=== PATIENT | female | born 1940 | race Caucasian/White ===

== ENCOUNTER 2016-09-13 11:27 | Inpatient (IN) | payer MEDICARE, OTHER ==
[~2016-09-13] VITALS: Ht 162.6 cm; Wt 86.1 kg
[~2016-09-13 11:27] MED LIST: ACET-784 PO; ASPI81 PO; DILT120C3 PO; FERR-89 PO; FURO20 PO; GABA-529 PO; LACHLOT TP; METF500T4 PO; MULT-248 PO; PROM25 PO; RIVA10 PO; SERT100T12 PO
[2016-09-13] MEDS ORDERED: HYDR20TA3 PO (11:59)
[2016-09-13] MEDS ORDERED: ZOLP5 PO (12:04)
[2016-09-13] MEDS ORDERED: ONDA4 PO (12:04)
[2016-09-13] MEDS ORDERED: HYDR-3965 PO (12:04)
[2016-09-13] MEDS ORDERED: LORA0.5T2 PO (12:04)
[2016-09-13] MEDS ORDERED: DIGO125T PO (12:04)
[2016-09-13] MEDS ORDERED: HYD25 PO (12:04)
[2016-09-13] MEDS ORDERED: SODIUM CHLORIDE 0.9% 1,000 ML IV ONE (12:15)
[2016-09-13] MEDS ORDERED: ACETAMINOPHEN 325 MG TABLET PO ONE (12:15)
[2016-09-13 12:36] LABS: BASOPHILS # (AUTO) 0.03 K/uL (0.00-0.20); BASOPHILS % (AUTO) 0.3 % (0.0-2.0); EOSINOPHILS # (AUTO) 0.14 K/uL (0.00-0.70); EOSINOPHILS % (AUTO) 1.68 % (1.0-6.0); HEMATOCRIT 31.7 % (36-46); HEMOGLOBIN 10.1 g/dL (12.0-16.0); LYMPHOCYTES # (AUTO) 0.8 K/uL (1.0-4.8); MEAN CORPUSCULAR HEMOGLOBIN 28.6 pg (26.0-34.0); MEAN CORPUSCULAR HGB CONC 31.9 G/dL (31.0-37.0); MEAN CORPUSCULAR VOLUME 90 fL (80-100); MONOCYTES # (AUTO) 0.7 K/uL (0.1-1.0); MONOCYTES % (AUTO) 8.5 % (2.0-9.0); NEUTROPHILS # (AUTO) 6.5 K/uL (1.8-7.7); NEUTROPHILS % (AUTO) 79.5 % (40.0-70.0); PLATELET COUNT (AUTO) 263 K/uL (150-450); RED BLOOD CELL COUNT(AUTO) 3.53 MIL/uL (4.00-5.20); WHITE BLOOD COUNT (AUTO) 8.2 K/uL (4.5-11.0)
[2016-09-13 12:55] LABS: LACTIC ACID 1.1 mmol/L (0.4-2.0)
[2016-09-13 13:00] LABS: ANION GAP 13 mmol/L (8-16); CALCIUM, TOTAL 8.3 mg/dL (8.8-10.5); CARBON DIOXIDE 21 mmol/L (22-29); CHLORIDE 107 mmol/L (98-107); CREATININE 1.32 mg/dL (0.60-1.30); GLOMERULAR FILTR. RATE CALC 39 mL/min (>60); POTASSIUM 3.9 mmol/L (3.5-5.1); SODIUM SERUM 141 mmol/L (136-145); UREA NITROGEN, BLOOD 27 mg/dL (7-18)
[2016-09-13 13:05] LABS: ALANINE AMINOTRANSFERASE 13 U/L (12-78); ALBUMIN 2.9 g/dL (3.4-5.0); ASPARTATE AMINOTRANSFERASE 17 U/L (15-37); BILIRUBIN,TOTAL 0.4 mg/dL (0.1-1.0); CREATINE KINASE, TOTAL 23 U/L (26-192); TOTAL PROTEIN, SERUM 7.1 g/dL (6.4-8.2)
[2016-09-13 13:45] LABS: PROCALCITONIN (PCT) < 0.05 ng/mL (<0.50)
[2016-09-13 15:32] LABS: APPEARANCE,URINE CLOUDY (CLEAR); GLUCOSE, URINE (UA) NEGATIVE (NEGATIVE); KETONES,URINE NEGATIVE (NEGATIVE); LEUKOCYTE ESTERASE ,URINE NEGATIVE (NEGATIVE); OCCULT BLOOD,URINE TRACE (NEGATIVE); PH,URINE 5.5 (5.0-8.0); PROTEIN,URINE NEGATIVE (NEGATIVE)
[2016-09-13 15:34] LABS: SQUAMOUS EPITHELIAL CELL,UR Few /LPF (None Seen)
[2016-09-13] MEDS ORDERED: ACETAMINOPHEN 325 MG TABLET PO PRN ×2 (16:30→21:45)
[2016-09-13] MEDS ORDERED: ONDANSETRON HCL 4 MG/2 ML VIAL IVP PRN (16:30)
[2016-09-13] MEDS ORDERED: CefTRIAXone 1 GM/DEXTROSE 50 ML IV ONE (16:30)
[2016-09-13 18:34] VITALS: BP 120/71
[2016-09-13 20:39] VITALS: BP 124/75
[2016-09-13] MEDS ORDERED: LORazepam 0.5 MG TABLET PO PRN (21:15)
[2016-09-13] MEDS ORDERED: PROMETHAZINE HCL 25 MG TABLET PO PRN (21:15)
[2016-09-13] MEDS ORDERED: MAGNESIUM HYDROXIDE SUSPENSION 30 ML UDCUP PO PRN (21:15)
[2016-09-13] MEDS ORDERED: BISACODYL 10 MG RECTAL RECTAL SUPPOSITORY PR PRN (21:15)
[2016-09-13] MEDS ORDERED: ONDANSETRON HCL 4 MG TABLET PO PRN (21:15)
[2016-09-13] MEDS ORDERED: ZOLPIDEM TARTRATE 5 MG TABLET PO PRN (21:15)
[2016-09-13] MEDS ORDERED: ALBUTEROL SULFATE 2.5 MG/0.5 ML NEB SOLUTION NEB PRN (21:15)
[2016-09-13] MEDS ORDERED: IPRATROPIUM BROMIDE 0.5 MG/2.5 ML NEB SOLUTION NEB PRN (21:15)
[2016-09-13] MEDS ORDERED: DEXTROSE 50%-WATER 25 GM/50 ML SYRINGE IVP PRN (21:30)
[2016-09-13] MEDS: HEPARIN SODIUM,PORCINE 5,000 UNITS/ML VIAL SQ SCH (21:39)
[2016-09-13] MEDS: INSULIN ASPART 100 UNITS/ML SQ PRN (21:42)
[2016-09-14] MEDS: HydrOXYzine HCL 25 MG TABLET PO PRN ×3 (01:19→18:54)
[2016-09-14 06:02] VITALS: BP 114/62
[2016-09-14 07:08] LABS: BASOPHILS % (AUTO) 0.2 % (0.0-2.0); EOSINOPHILS % (AUTO) 3.1 % (1.0-6.0); HEMATOCRIT 27.3 % (36-46); HEMOGLOBIN 8.5 g/dL (12.0-16.0); LYMPHOCYTES # (AUTO) 0.8 K/uL (1.0-4.8); LYMPHOCYTES % (AUTO) 17.9 % (22.0-44.0); MEAN CORPUSCULAR HEMOGLOBIN 27.9 pg (26.0-34.0); MEAN CORPUSCULAR HGB CONC 30.9 G/dL (31.0-37.0); MEAN CORPUSCULAR VOLUME 90 fL (80-100); MONOCYTES # (AUTO) 0.4 K/uL (0.1-1.0); MONOCYTES % (AUTO) 9.3 % (2.0-9.0); NEUTROPHILS # (AUTO) 3.1 K/uL (1.8-7.7); NEUTROPHILS % (AUTO) 69.5 % (40.0-70.0); PLATELET COUNT (AUTO) 216 K/uL (150-450); RED BLOOD CELL COUNT(AUTO) 3.03 MIL/uL (4.00-5.20); RED CELL DISTRIBUTION WIDTH 15.7 % (11.5-14.5); WHITE BLOOD COUNT (AUTO) 4.5 K/uL (4.5-11.0)
[2016-09-14 07:15] LABS: HEMOGLOBIN A1C 5.5 % (4.5-6.2)
[2016-09-14 07:25] LABS: AMMONIA 24 umol/L (11-32)
[2016-09-14 07:30] LABS: TROPONIN I < 0.02 ng/mL (0.00-0.05)
[2016-09-14 07:33] LABS: ANION GAP 8 mmol/L (8-16); CALCIUM, TOTAL 7.7 mg/dL (8.8-10.5); CARBON DIOXIDE 21 mmol/L (22-29); CHLORIDE 111 mmol/L (98-107); CHOL/HDL RATIO 2.3 (3.9-5.7); CREATINE KINASE, TOTAL 15 U/L (26-192); CREATININE 1.01 mg/dL (0.60-1.30); GLOMERULAR FILTR. RATE CALC 53 mL/min (>60); POTASSIUM 3.5 mmol/L (3.5-5.1); SODIUM SERUM 140 mmol/L (136-145); THYROID STIMULATING HORMONE 1.05 uIU/mL (0.36-3.74); UREA NITROGEN, BLOOD 21 mg/dL (7-18)
[2016-09-14 07:46] LABS: DIGOXIN < 0.20 ng/mL (0.90-2.00)
[2016-09-14] MEDS: PANTOPRAZOLE SODIUM 40 MG DR TABLET PO SCH (08:52)
[2016-09-14] MEDS: MULTIVITAMINS WITH MINERALS, THERAPEUTIC TABLET PO SCH (08:52)
[2016-09-14] MEDS: ASPIRIN 81 MG CHEWABLE TABLET PO SCH (08:52)
[2016-09-14] MEDS: SERTRALINE HCL 100 MG TABLET PO SCH (08:52)
[2016-09-14] MEDS: GABAPENTIN 100 MG CAPSULE PO SCH ×3 (08:53→21:36)
[2016-09-14] MEDS: HEPARIN SODIUM,PORCINE 5,000 UNITS/ML VIAL SQ SCH ×2 (08:53→21:38)
[2016-09-14] MEDS: DIGOXIN 125 MCG TABLET PO SCH (08:53)
[2016-09-14] MEDS: RIVAROXABAN 15 MG TABLET PO SCH (08:53)
[2016-09-14] MEDS: HYDROCORTISONE 10 MG TABLET PO SCH ×2 (08:53→21:38)
[2016-09-14] MEDS: MetFORMIN HCL 500 MG TABLET PO SCH ×2 (08:53→17:20)
[2016-09-14] MEDS: FERROUS SULFATE 325 MG EC TABLET PO SCH (08:53)
[2016-09-14] MEDS: DILTIAZEM HCL CD 120 MG ER CAPSULE PO SCH ×2 (08:59→21:36)
[2016-09-14 09:09] VITALS: BP 98/56
[2016-09-14 09:30] LABS: VITAMIN B12 LEVEL 277 pg/mL (211-911)
[2016-09-14] MEDS: FUROSEMIDE 20 MG/2 ML VIAL IVP SCH (09:56)
[2016-09-14 11:35] VITALS: BP 112/58
[2016-09-14] MEDS ORDERED: RIVA15T PO (11:52)
[2016-09-14] MEDS: HYDROCODONE/ACETAMINOPHEN 5-325 MG TABLET PO PRN ×2 (13:42→21:38)
[2016-09-14 16:10] VITALS: BP 120/62
[2016-09-14] MEDS ORDERED: SODIUM CHLORIDE 0.9% 500 ML IV ONE (16:26)
[2016-09-14] MEDS: CefTRIAXone 1 GM/DEXTROSE 50 ML IV SCH (16:32)
[2016-09-14] MEDS: PYRIDOSTIGMINE BROMIDE 60 MG TABLET PO SCH ×2 (17:20→21:36)
[2016-09-14] MEDS: INSULIN ASPART 100 UNITS/ML SQ PRN (17:23)
[2016-09-14 19:44] VITALS: BP 124/68
[2016-09-14] MEDS: METOPROLOL TARTRATE 25 MG TABLET PO SCH (21:37)
[2016-09-15 00:10] VITALS: BP 113/71
[2016-09-15] MEDS: HydrOXYzine HCL 25 MG TABLET PO PRN (03:09)
[2016-09-15 04:25] VITALS: BP 105/62
[2016-09-15] MEDS: INSULIN ASPART 100 UNITS/ML SQ PRN (06:12)
[2016-09-15] MEDS: HYDROCODONE/ACETAMINOPHEN 5-325 MG TABLET PO PRN ×2 (06:23→14:01)
[2016-09-15 06:55] LABS: BASOPHILS % (AUTO) 0.1 % (0.0-2.0); EOSINOPHILS % (AUTO) 0.1 % (1.0-6.0); HEMATOCRIT 29.1 % (36-46); LYMPHOCYTES # (AUTO) 0.7 K/uL (1.0-4.8); LYMPHOCYTES % (AUTO) 10.5 % (22.0-44.0); MEAN CORPUSCULAR VOLUME 90 fL (80-100); MONOCYTES # (AUTO) 0.3 K/uL (0.1-1.0); NEUTROPHILS # (AUTO) 5.3 K/uL (1.8-7.7); NEUTROPHILS % (AUTO) 84.3 % (40.0-70.0); PLATELET COUNT (AUTO) 236 K/uL (150-450); RED BLOOD CELL COUNT(AUTO) 3.22 MIL/uL (4.00-5.20); WHITE BLOOD COUNT (AUTO) 6.3 K/uL (4.5-11.0)
[2016-09-15 07:07] LABS: CALCIUM, TOTAL 8.1 mg/dL (8.8-10.5); CREATININE 1.19 mg/dL (0.60-1.30); MAGNESIUM 2.1 mg/dL (1.80-2.40); PHOSPHORUS 3.5 mg/dL (2.5-4.9); POTASSIUM 4.8 mmol/L (3.5-5.1)
[2016-09-15 07:50] VITALS: BP 98/59
[2016-09-15] MEDS: PANTOPRAZOLE SODIUM 40 MG DR TABLET PO SCH (08:26)
[2016-09-15] MEDS: HEPARIN SODIUM,PORCINE 5,000 UNITS/ML VIAL SQ SCH ×2 (08:26→21:01)
[2016-09-15] MEDS: ASPIRIN 81 MG CHEWABLE TABLET PO SCH (08:26)
[2016-09-15] MEDS: FERROUS SULFATE 325 MG EC TABLET PO SCH (08:26)
[2016-09-15] MEDS: MULTIVITAMINS WITH MINERALS, THERAPEUTIC TABLET PO SCH (08:27)
[2016-09-15] MEDS: HYDROCORTISONE 10 MG TABLET PO SCH ×2 (08:27→21:00)
[2016-09-15] MEDS: SERTRALINE HCL 100 MG TABLET PO SCH (08:27)
[2016-09-15] MEDS: GABAPENTIN 100 MG CAPSULE PO SCH ×3 (08:27→21:00)
[2016-09-15] MEDS: RIVAROXABAN 15 MG TABLET PO SCH (08:27)
[2016-09-15] MEDS: PYRIDOSTIGMINE BROMIDE 60 MG TABLET PO SCH ×3 (08:27→21:00)
[2016-09-15] MEDS: MetFORMIN HCL 500 MG TABLET PO SCH ×2 (08:28→17:34)
[2016-09-15] MEDS: DILTIAZEM HCL CD 120 MG ER CAPSULE PO SCH ×2 (08:28→20:30)
[2016-09-15] MEDS: METOPROLOL TARTRATE 25 MG TABLET PO SCH ×2 (08:28→20:30)
[2016-09-15] MEDS: DIGOXIN 125 MCG TABLET PO SCH (08:28)
[2016-09-15] MEDS: FUROSEMIDE 20 MG/2 ML VIAL IVP SCH (09:00)
[2016-09-15 11:21] VITALS: BP 112/63
[2016-09-15] MEDS: CefTRIAXone 1 GM/DEXTROSE 50 ML IV SCH (16:19)
[2016-09-15 18:44] LABS: ADD UA MICROSCOPIC YES; APPEARANCE,URINE CLOUDY (CLEAR); GLUCOSE, URINE (UA) NEGATIVE (NEGATIVE); KETONES,URINE NEGATIVE (NEGATIVE); LEUKOCYTE ESTERASE ,URINE TRACE (NEGATIVE); OCCULT BLOOD,URINE LARGE (NEGATIVE); PROTEIN,URINE POS 1+ (NEGATIVE)
[2016-09-15 18:46] LABS: RBC,URINE 26-50 /HPF (0-2); SQUAMOUS EPITHELIAL CELL,UR Moderate /LPF (None Seen)
[2016-09-15 19:38] VITALS: BP 100/54
[2016-09-15 19:47] LABS: GLUCOSE,POINT OF CARE 119 MG/DL (70-110)
[2016-09-15 19:52] LABS: GLUCOSE COMMENT 1 Received Meds; GLUCOSE,POINT OF CARE 154 MG/DL (70-110)
[2016-09-15 23:48] VITALS: BP 110/55
[2016-09-16 01:07] LABS: GLUCOSE,POINT OF CARE 150 MG/DL (70-110)
[2016-09-16 01:16] LABS: GLUCOSE,POINT OF CARE 129 MG/DL (70-110)
[2016-09-16 04:14] VITALS: BP 102/55
[2016-09-16 05:59] LABS: BASOPHILS % (AUTO) 0.1 % (0.0-2.0); EOSINOPHILS % (AUTO) 0.4 % (1.0-6.0); HEMOGLOBIN 8.7 g/dL (12.0-16.0); LYMPHOCYTES # (AUTO) 0.7 K/uL (1.0-4.8); LYMPHOCYTES % (AUTO) 10.8 % (22.0-44.0); MEAN CORPUSCULAR HGB CONC 31.1 G/dL (31.0-37.0); MEAN CORPUSCULAR VOLUME 90 fL (80-100); MONOCYTES # (AUTO) 0.3 K/uL (0.1-1.0); NEUTROPHILS # (AUTO) 5.4 K/uL (1.8-7.7); NEUTROPHILS % (AUTO) 83.7 % (40.0-70.0); PLATELET COUNT (AUTO) 250 K/uL (150-450); RED BLOOD CELL COUNT(AUTO) 3.11 MIL/uL (4.00-5.20); RED CELL DISTRIBUTION WIDTH 15.9 % (11.5-14.5); WHITE BLOOD COUNT (AUTO) 6.5 K/uL (4.5-11.0)
[2016-09-16 06:04] LABS: CREATININE 1.26 mg/dL (0.60-1.30); POTASSIUM 4.4 mmol/L (3.5-5.1)
[2016-09-16 07:14] VITALS: BP 103/73
[2016-09-16] MEDS: MetFORMIN HCL 500 MG TABLET PO SCH ×2 (08:00→17:17)
[2016-09-16] MEDS: METOPROLOL TARTRATE 25 MG TABLET PO SCH ×2 (09:00→20:14)
[2016-09-16] MEDS: HYDROCORTISONE 10 MG TABLET PO SCH ×2 (09:00→20:13)
[2016-09-16] MEDS: GABAPENTIN 100 MG CAPSULE PO SCH ×3 (09:00→20:13)
[2016-09-16 09:59] LABS: INR 1.1 (0.9-1.1); PROTHROMBIN TIME 11.2 SEC (9.4-11.6)
[2016-09-16] MEDS ORDERED: SODIUM CHLORIDE 0.9% 1,000 ML IV ONE ×2 (10:49→11:00)
[2016-09-16 11:27] LABS: GLUCOSE,POINT OF CARE 127 MG/DL (70-110)
[2016-09-16 11:37] LABS: GLUCOSE,POINT OF CARE 89 MG/DL (70-110)
[2016-09-16] MEDS ORDERED: ONDANSETRON HCL 4 MG/2 ML VIAL ONE (12:34)
[2016-09-16] MEDS ORDERED: ONDANSETRON HCL 4 MG/2 ML VIAL IVP PRN (12:45)
[2016-09-16 13:42] LABS: GLUCOSE COMMENT 1 Received Meds; GLUCOSE,POINT OF CARE 149 MG/DL (70-110)
[2016-09-16 13:47] LABS: GLUCOSE,POINT OF CARE 84 MG/DL (70-110)
[2016-09-16 13:48] LABS: GLUCOSE COMMENT 1 Received Meds; GLUCOSE,POINT OF CARE 143 MG/DL (70-110)
[2016-09-16 13:52] LABS: GLUCOSE,POINT OF CARE 114 MG/DL (70-110)
[2016-09-16 14:20] VITALS: BP 108/76
[2016-09-16 15:20] VITALS: BP 117/73
[2016-09-16] MEDS: CefTRIAXone 1 GM/DEXTROSE 50 ML IV SCH (15:32)
[2016-09-16] MEDS ORDERED: SODIUM CHLORIDE 0.9% 100 ML ONE (15:45)
[2016-09-16] MEDS ORDERED: IOVERSOL 350 MG/ML 100 ML VIAL ONE (15:45)
[2016-09-16] MEDS: ASPIRIN 81 MG CHEWABLE TABLET PO SCH (16:24)
[2016-09-16] MEDS: SERTRALINE HCL 100 MG TABLET PO SCH (16:24)
[2016-09-16] MEDS: SUCRALFATE 1 GM/10 ML SUSPENSION UDCUP PO SCH (16:24)
[2016-09-16] MEDS: FERROUS SULFATE 325 MG EC TABLET PO SCH (16:24)
[2016-09-16] MEDS: RIVAROXABAN 15 MG TABLET PO SCH (16:24)
[2016-09-16] MEDS: FUROSEMIDE 20 MG TABLET PO SCH (16:24)
[2016-09-16] MEDS: PYRIDOSTIGMINE BROMIDE 60 MG TABLET PO SCH (16:24)
[2016-09-16] MEDS: MULTIVITAMINS WITH MINERALS, THERAPEUTIC TABLET PO SCH (16:24)
[2016-09-16] MEDS: DIGOXIN 125 MCG TABLET PO SCH (16:24)
[2016-09-16 19:21] VITALS: BP 108/64
[2016-09-16] MEDS: PANTOPRAZOLE SODIUM 40 MG DR TABLET PO SCH (20:13)
[2016-09-16] MEDS: HydrOXYzine HCL 25 MG TABLET PO PRN (20:13)
[2016-09-16] MEDS: HYDROCODONE/ACETAMINOPHEN 5-325 MG TABLET PO PRN (22:50)
[2016-09-16 22:57] LABS: GLUCOSE COMMENT 1 Received Meds; GLUCOSE,POINT OF CARE 154 MG/DL (70-110)
[2016-09-16 23:02] LABS: GLUCOSE,POINT OF CARE 128 MG/DL (70-110)
[2016-09-16 23:33] VITALS: BP 109/66
[2016-09-17 05:17] VITALS: BP 100/59
[2016-09-17 06:27] LABS: GLUCOSE,POINT OF CARE 105 MG/DL (70-110)
[2016-09-17 07:25] VITALS: BP 105/57
[2016-09-17] MEDS: SUCRALFATE 1 GM/10 ML SUSPENSION UDCUP PO SCH ×3 (07:42→17:30)
[2016-09-17] MEDS: PANTOPRAZOLE SODIUM 40 MG DR TABLET PO SCH (07:50)
[2016-09-17] MEDS: FERROUS SULFATE 325 MG EC TABLET PO SCH (07:50)
[2016-09-17] MEDS: ASPIRIN 81 MG CHEWABLE TABLET PO SCH (07:51)
[2016-09-17] MEDS: METOPROLOL TARTRATE 25 MG TABLET PO SCH (07:51)
[2016-09-17] MEDS: SERTRALINE HCL 100 MG TABLET PO SCH (07:52)
[2016-09-17] MEDS: GABAPENTIN 100 MG CAPSULE PO SCH ×2 (07:52→15:30)
[2016-09-17] MEDS: HYDROCORTISONE 10 MG TABLET PO SCH (07:52)
[2016-09-17] MEDS: RIVAROXABAN 15 MG TABLET PO SCH (07:53)
[2016-09-17] MEDS: MULTIVITAMINS WITH MINERALS, THERAPEUTIC TABLET PO SCH (07:53)
[2016-09-17] MEDS: FUROSEMIDE 20 MG TABLET PO SCH (07:56)
[2016-09-17] MEDS ORDERED: DILTIAZEM HCL 60 MG SR CAPSULE PO SCH (09:00)
[2016-09-17 11:37] VITALS: BP 123/66
[2016-09-17 12:07] LABS: GLUCOSE,POINT OF CARE 129 MG/DL (70-110)
[2016-09-17 12:07] LABS: GLUCOSE COMMENT 1 Received Meds; GLUCOSE,POINT OF CARE 142 MG/DL (70-110)
[2016-09-17] MEDS: INSULIN ASPART 100 UNITS/ML SQ PRN ×2 (12:17→17:24)
[2016-09-17] MEDS ORDERED: DILT30TA38 PO (14:05)
[2016-09-17] MEDS: CefTRIAXone 1 GM/DEXTROSE 50 ML IV SCH (15:30)
[2016-09-17 15:37] VITALS: BP 113/60
[2016-09-17 17:07] LABS: GLUCOSE,POINT OF CARE 136 MG/DL (70-110)
[2016-09-18] MEDS ORDERED: MetFORMIN HCL 500 MG TABLET PO SCH (18:00)
== END 2016-09-17 17:27 | disposition home or self-care (01) | DRG 291 ==
LOC: EMS 11:30 → 5S 17:13
PROVIDERS: ADMIT Internal Medicine Geriatric Medicine; ATTEND Internal Medicine Geriatric Medicine
PROC: 0DJ08ZZ Inspection of Upper Intestinal Tract, Via Natural or Artificial Opening Endoscopic (ICD-10-PCS; principal; 2016-09-16 12:00)
DX: I13.0 Hypertensive heart and chronic kidney disease with heart failure and stage 1 through stage 4 chronic kidney disease, or unspecified chronic kidney disease (principal); I50.33 Acute on chronic diastolic (congestive) heart failure; E43 Unspecified severe protein-calorie malnutrition; N39.0 Urinary tract infection, site not specified; L97.909 Non-pressure chronic ulcer of unspecified part of unspecified lower leg with unspecified severity; F33.3 Major depressive disorder, recurrent, severe with psychotic symptoms; N17.9 Acute kidney failure, unspecified; I83.009 Varicose veins of unspecified lower extremity with ulcer of unspecified site; E11.622 Type 2 diabetes mellitus with other skin ulcer; G70.00 Myasthenia gravis without (acute) exacerbation; R62.7 Adult failure to thrive; E66.9 Obesity, unspecified; D64.9 Anemia, unspecified; Z90.710 Acquired absence of both cervix and uterus; E11.22 Type 2 diabetes mellitus with diabetic chronic kidney disease; F03.90 Unspecified dementia, unspecified severity, without behavioral disturbance, psychotic disturbance, mood disturbance, and anxiety; G89.4 Chronic pain syndrome; F22 Delusional disorders; K21.9 Gastro-esophageal reflux disease without esophagitis; K22.4 Dyskinesia of esophagus; I50.9 Heart failure, unspecified; I48.0 Paroxysmal atrial fibrillation; F43.21 Adjustment disorder with depressed mood; B96.20 Unspecified Escherichia coli [E. coli] as the cause of diseases classified elsewhere; K25.9 Gastric ulcer, unspecified as acute or chronic, without hemorrhage or perforation; I87.8 Other specified disorders of veins; I87.2 Venous insufficiency (chronic) (peripheral); Z68.32 Body mass index [BMI] 32.0-32.9, adult
CPT/HCPCS: 51702; 70450; 74177; 76700; 82306; 82607; 82746; 82962; 83036; 83605; 83735; 84100; 84145; 84439; 84443; 87040; 87081; 87086; 93005; 93306; 93925; 93970; 96361; 96365; 97163; 97530; 99285; J0696; J1644; J1940; J2405; J7030; J7040; J7050; Q0162

== ENCOUNTER → 2016-09-24 | Outpatient (CLI) | payer MEDICARE, OTHER ==
[~2016-09-24] MED LIST changes: -ASPI81 PO; +DIGO125T PO; -DILT120C3 PO; +DILT30TA38 PO; +HYD25 PO; +HYDR-3965 PO; +HYDR20TA3 PO; +IOVERSOL 350 MG/ML 100 ML VIAL ONE; +LORA0.5T2 PO; -METF500T4 PO; +ONDA4 PO; -RIVA10 PO; +SODIUM CHLORIDE 0.9% 100 ML ONE; +ZOLP5 PO
== END | disposition home or self-care (01) ==
LOC: RADMN 09:02
PROVIDERS: ATTEND Legal Medicine
DX: N27.1 Small kidney, bilateral (principal); I51.7 Cardiomegaly; I70.0 Atherosclerosis of aorta; J98.4 Other disorders of lung; Z98.890 Other specified postprocedural states
CPT/HCPCS: 74177; J7050; Q9967

== ENCOUNTER 2017-01-14 03:10 | Inpatient (IN) | payer MEDICARE, OTHER ==
[~2017-01-14] VITALS: Ht 160 cm; Wt 88.1 kg
[~2017-01-14 03:10] MED LIST changes: -HYDR-3965 PO; +HYDR-4061 PO; -IOVERSOL 350 MG/ML 100 ML VIAL ONE; -SODIUM CHLORIDE 0.9% 100 ML ONE
[2017-01-14] MEDS ORDERED: SODIUM CHLORIDE 0.9% 1,000 ML IV ONE (03:30)
[2017-01-14] MEDS ORDERED: MICO71PO TP (03:33)
[2017-01-14] MEDS ORDERED: PANT40TA25 PO (03:33)
[2017-01-14] MEDS ORDERED: DSS100 PO (03:33)
[2017-01-14] MEDS ORDERED: CARV20CR PO (03:33)
[2017-01-14] MEDS ORDERED: RIVA20TA PO (03:33)
[2017-01-14] MEDS ORDERED: FURO40 PO (03:33)
[2017-01-14] MEDS ORDERED: METF500T4 PO (03:33)
[2017-01-14] MEDS ORDERED: DILT60 PO (03:33)
[2017-01-14] MEDS ORDERED: ARIP2 PO (03:33)
[2017-01-14 03:59] LABS: BASOPHILS # (AUTO) 0.02 K/uL (0.00-0.20); BASOPHILS % (AUTO) 0.3 % (0.0-2.0); EOSINOPHILS # (AUTO) 0.15 K/uL (0.00-0.70); EOSINOPHILS % (AUTO) 1.87 % (1.0-6.0); HEMATOCRIT 32.8 % (36-46); HEMOGLOBIN 10.6 g/dL (12.0-16.0); MEAN CORPUSCULAR HGB CONC 32.3 G/dL (31.0-37.0); MEAN CORPUSCULAR VOLUME 87 fL (80-100); MONOCYTES # (AUTO) 0.5 K/uL (0.1-1.0); NEUTROPHILS # (AUTO) 6.2 K/uL (1.8-7.7); NEUTROPHILS % (AUTO) 78.8 % (40.0-70.0); PLATELET COUNT (AUTO) 219 K/uL (150-450); RED BLOOD CELL COUNT(AUTO) 3.79 MIL/uL (4.00-5.20); RED CELL DISTRIBUTION WIDTH 17.6 % (11.5-14.5); WHITE BLOOD COUNT (AUTO) 7.8 K/uL (4.5-11.0)
[2017-01-14 04:08] LABS: ANION GAP 19 mmol/L (8-16); CALCIUM, TOTAL 8.6 mg/dL (8.8-10.5); CARBON DIOXIDE 18 mmol/L (22-29); CHLORIDE 105 mmol/L (98-107); CREATININE 2.21 mg/dL (0.60-1.30); GLOMERULAR FILTR. RATE CALC 22 mL/min (>60); POTASSIUM 4.5 mmol/L (3.5-5.1); SODIUM SERUM 142 mmol/L (136-145); UREA NITROGEN, BLOOD 33 mg/dL (7-18)
[2017-01-14 04:11] LABS: INR 1.1 (0.9-1.1); PROTHROMBIN TIME 11.4 SEC (9.4-11.6)
[2017-01-14 04:14] LABS: ALANINE AMINOTRANSFERASE 12 U/L (12-78); ALBUMIN 3.2 g/dL (3.4-5.0); ASPARTATE AMINOTRANSFERASE 11 U/L (15-37); B-TYPE NATRIURETIC PEPTIDE 350 pg/mL (0-100); BILIRUBIN,TOTAL 0.4 mg/dL (0.1-1.0); CREATINE KINASE, TOTAL 26 U/L (26-192)
[2017-01-14] MEDS ORDERED: ATROPINE SULFATE 0.1 MG/ML 10 ML SYRINGE IVP ONE ×2 (04:15)
[2017-01-14] MEDS ORDERED: FentaNYL CITRATE-PF 100 MCG/2 ML VIAL IVP ONE (04:15)
[2017-01-14 04:21] LABS: RBC MORPHOLOGY COMMENT ABNORMAL RBC MORPH
[2017-01-14 04:38] LABS: DIGOXIN 2.09 ng/mL (0.90-2.00)
[2017-01-14] MEDS ORDERED: ONDANSETRON HCL 4 MG/2 ML VIAL IVP PRN (05:00)
[2017-01-14] MEDS ORDERED: 0.9% SODIUM CHLORIDE 10 ML SYRINGE IVP PRN (05:00)
[2017-01-14] MEDS ORDERED: ACETAMINOPHEN 325 MG TABLET PO PRN (05:00)
[2017-01-14] MEDS ORDERED: IPRATROPIUM BROMIDE 0.5 MG/2.5 ML NEB SOLUTION NEB PRN (05:15)
[2017-01-14] MEDS ORDERED: ALBUTEROL SULFATE 2.5 MG/0.5 ML NEB SOLUTION NEB PRN (05:15)
[2017-01-14] MEDS ORDERED: MAGNESIUM HYDROXIDE SUSPENSION 30 ML UDCUP PO PRN (05:15)
[2017-01-14] MEDS ORDERED: DEXTROSE 50%-WATER 25 GM/50 ML SYRINGE IVP PRN (05:15)
[2017-01-14] MEDS ORDERED: BISACODYL 10 MG RECTAL RECTAL SUPPOSITORY PR PRN (05:15)
[2017-01-14] MEDS: DOCUSATE SODIUM 100 MG CAPSULE PO SCH (09:00)
[2017-01-14] MEDS: PANTOPRAZOLE SODIUM 40 MG DR TABLET PO SCH (09:00)
[2017-01-14 12:43] VITALS: BP 94/56
[2017-01-14] MEDS: SERTRALINE HCL 100 MG TABLET PO SCH (14:23)
[2017-01-14] MEDS: GABAPENTIN 100 MG CAPSULE PO SCH ×3 (14:24→21:04)
[2017-01-14] MEDS: DiphenhydrAMINE HCL 25 MG CAPSULE PO PRN (14:24)
[2017-01-14 16:18] VITALS: BP 117/58
[2017-01-14] MEDS: MORPHINE SULFATE 2 MG/ML SYRINGE IVP PRN ×2 (16:18→23:00)
[2017-01-14 17:01] LABS: CREATINE KINASE, TOTAL 57 U/L (26-192)
[2017-01-14 17:12] LABS: ACETAMINOPHEN < 2 mcg/mL (10-30)
[2017-01-14 17:23] LABS: SODIUM SERUM 142 mmol/L (136-145)
[2017-01-14 17:24] LABS: ANION GAP 11 mmol/L (8-16); CARBON DIOXIDE 23 mmol/L (22-29); CHLORIDE 108 mmol/L (98-107); GLOMERULAR FILTR. RATE CALC 23 mL/min (>60); POTASSIUM 4.2 mmol/L (3.5-5.1); UREA NITROGEN, BLOOD 42 mg/dL (7-18)
[2017-01-14 17:33] LABS: LACTIC ACID 1.5 mmol/L (0.4-2.0)
[2017-01-14 18:40] LABS: SALICYLATE < 2.8 mg/dL (2.8-20.0)
[2017-01-14] MEDS ORDERED: INFLUENZA VIRUS VACCINE QVS 2017-18 (3YR+)/PF 60 MCG/0.5 ML SYRINGE IM ONE (19:15)
[2017-01-14 20:00] VITALS: BP 112/45
[2017-01-14] MEDS ORDERED: RIVAROXABAN 20 MG TABLET PO SCH (21:00)
[2017-01-14] MEDS: HYDROCORTISONE 10 MG TABLET PO SCH (21:04)
[2017-01-14 23:00] VITALS: BP 117/74
[2017-01-14 23:15] VITALS: BP 113/64
[2017-01-15] VITALS: BP 94/45
[2017-01-15 04:00] VITALS: BP 117/65
[2017-01-15 05:08] LABS: BASOPHILS % (AUTO) 0.2 % (0.0-2.0); EOSINOPHILS % (AUTO) 0.4 % (1.0-6.0); HEMATOCRIT 29.1 % (36-46); HEMOGLOBIN 9.4 g/dL (12.0-16.0); LYMPHOCYTES # (AUTO) 0.7 K/uL (1.0-4.8); LYMPHOCYTES % (AUTO) 10.8 % (22.0-44.0); MEAN CORPUSCULAR HEMOGLOBIN 27.8 pg (26.0-34.0); MEAN CORPUSCULAR HGB CONC 32.3 G/dL (31.0-37.0); MEAN CORPUSCULAR VOLUME 86 fL (80-100); MONOCYTES # (AUTO) 0.3 K/uL (0.1-1.0); MONOCYTES % (AUTO) 4.1 % (2.0-9.0); NEUTROPHILS # (AUTO) 5.8 K/uL (1.8-7.7); NEUTROPHILS % (AUTO) 84.5 % (40.0-70.0); PLATELET COUNT (AUTO) 206 K/uL (150-450); RED BLOOD CELL COUNT(AUTO) 3.37 MIL/uL (4.00-5.20); RED CELL DISTRIBUTION WIDTH 17.3 % (11.5-14.5); WHITE BLOOD COUNT (AUTO) 6.8 K/uL (4.5-11.0)
[2017-01-15 05:18] LABS: APPEARANCE,URINE CLOUDY (CLEAR); GLUCOSE, URINE (UA) NEGATIVE (NEGATIVE); KETONES,URINE NEGATIVE (NEGATIVE); LEUKOCYTE ESTERASE ,URINE NEGATIVE (NEGATIVE); OCCULT BLOOD,URINE MODERATE (NEGATIVE); PH,URINE 5.5 (5.0-8.0); PROTEIN,URINE NEGATIVE (NEGATIVE)
[2017-01-15 05:31] LABS: ADD UA MICROSCOPIC YES
[2017-01-15 05:43] LABS: SQUAMOUS EPITHELIAL CELL,UR Rare /LPF (None Seen)
[2017-01-15 06:09] LABS: RBC MORPHOLOGY COMMENT ABNORMAL RBC MORPH
[2017-01-15 06:10] LABS: HEMOGLOBIN A1C 7.5 % (4.5-6.2)
[2017-01-15 06:15] LABS: ALBUMIN 2.7 g/dL (3.4-5.0); BILIRUBIN,TOTAL 0.5 mg/dL (0.1-1.0); CALCIUM, TOTAL 7.9 mg/dL (8.8-10.5); CHOL/HDL RATIO 4.1 (3.9-5.7); CREATININE 1.86 mg/dL (0.60-1.30); MAGNESIUM 1.6 mg/dL (1.80-2.40); THYROID STIMULATING HORMONE 1.77 uIU/mL (0.36-3.74); TOTAL PROTEIN, SERUM 6.5 g/dL (6.4-8.2)
[2017-01-15] MEDS: INSULIN ASPART 100 UNITS/ML SQ PRN (06:22)
[2017-01-15 08:00] VITALS: BP 105/61
[2017-01-15 08:17] LABS: GLUCOSE,POINT OF CARE 152 MG/DL (70-110)
[2017-01-15 08:17] LABS: GLUCOSE,POINT OF CARE 138 MG/DL (70-110)
[2017-01-15 08:17] LABS: GLUCOSE,POINT OF CARE 109 MG/DL (70-110)
[2017-01-15 08:22] LABS: GLUCOSE,POINT OF CARE 111 MG/DL (70-110)
[2017-01-15] MEDS: GABAPENTIN 100 MG CAPSULE PO SCH ×3 (08:39→21:09)
[2017-01-15] MEDS: DOCUSATE SODIUM 100 MG CAPSULE PO SCH (08:39)
[2017-01-15] MEDS: HYDROCORTISONE 10 MG TABLET PO SCH ×2 (08:39→21:09)
[2017-01-15] MEDS: SERTRALINE HCL 100 MG TABLET PO SCH (08:40)
[2017-01-15] MEDS: PANTOPRAZOLE SODIUM 40 MG DR TABLET PO SCH (08:40)
[2017-01-15 12:00] VITALS: BP 121/69
[2017-01-15 14:43] LABS: GLUCOSE,POINT OF CARE 137 MG/DL (70-110)
[2017-01-15 16:38] VITALS: BP 102/63
[2017-01-15] MEDS ORDERED: MAGNESIUM SULFATE 2 GM in DEXTROSE 5%-WATER 50 ML IV ONE (17:00)
[2017-01-15] MEDS ORDERED: SODIUM CHLORIDE 0.9% 100 ML ONE (18:10)
[2017-01-15 19:46] LABS: APPEARANCE,URINE CLOUDY (CLEAR); GLUCOSE, URINE (UA) NEGATIVE (NEGATIVE); KETONES,URINE NEGATIVE (NEGATIVE); LEUKOCYTE ESTERASE ,URINE SMALL (NEGATIVE); OCCULT BLOOD,URINE NEGATIVE (NEGATIVE); PROTEIN,URINE NEGATIVE (NEGATIVE)
[2017-01-15 20:13] LABS: ADD UA MICROSCOPIC YES
[2017-01-15 20:15] LABS: RBC,URINE 0-2 /HPF (0-2); SQUAMOUS EPITHELIAL CELL,UR Few /LPF (None Seen)
[2017-01-15 20:15] LABS: GLUCOSE,POINT OF CARE 124 MG/DL (70-110)
[2017-01-15 20:19] VITALS: BP 115/72
[2017-01-15] MEDS: RIVAROXABAN 15 MG TABLET PO SCH (21:09)
[2017-01-16 00:16] VITALS: BP 126/76
[2017-01-16] MEDS: ZOLPIDEM TARTRATE 5 MG TABLET PO PRN (00:42)
[2017-01-16] MEDS: DiphenhydrAMINE HCL 25 MG CAPSULE PO PRN ×2 (03:17→17:27)
[2017-01-16 04:25] VITALS: BP 128/63
[2017-01-16 06:58] LABS: BASOPHILS # (AUTO) 0.01 K/uL (0.00-0.20); BASOPHILS % (AUTO) 0.1 % (0.0-2.0); EOSINOPHILS # (AUTO) 0.06 K/uL (0.00-0.70); EOSINOPHILS % (AUTO) 0.83 % (1.0-6.0); HEMATOCRIT 29.7 % (36-46); HEMOGLOBIN 9.6 g/dL (12.0-16.0); LYMPHOCYTES # (AUTO) 0.8 K/uL (1.0-4.8); LYMPHOCYTES % (AUTO) 11.8 % (22.0-44.0); MEAN CORPUSCULAR HEMOGLOBIN 27.9 pg (26.0-34.0); MEAN CORPUSCULAR HGB CONC 32.5 G/dL (31.0-37.0); MEAN CORPUSCULAR VOLUME 86 fL (80-100); MONOCYTES # (AUTO) 0.4 K/uL (0.1-1.0); MONOCYTES % (AUTO) 5.9 % (2.0-9.0); NEUTROPHILS # (AUTO) 5.7 K/uL (1.8-7.7); NEUTROPHILS % (AUTO) 81.4 % (40.0-70.0); PLATELET COUNT (AUTO) 220 K/uL (150-450); RED BLOOD CELL COUNT(AUTO) 3.46 MIL/uL (4.00-5.20); RED CELL DISTRIBUTION WIDTH 17.6 % (11.5-14.5)
[2017-01-16 07:21] LABS: ALBUMIN 2.8 g/dL (3.4-5.0); BILIRUBIN,TOTAL 0.4 mg/dL (0.1-1.0); CALCIUM, TOTAL 8.1 mg/dL (8.8-10.5); CHOL/HDL RATIO 3.9 (3.9-5.7); CREATININE 1.51 mg/dL (0.60-1.30); MAGNESIUM 1.8 mg/dL (1.80-2.40); POTASSIUM 3.9 mmol/L (3.5-5.1); THYROID STIMULATING HORMONE 1.8 uIU/mL (0.36-3.74); TOTAL PROTEIN, SERUM 6.9 g/dL (6.4-8.2)
[2017-01-16 07:59] LABS: HEMOGLOBIN A1C 6.9 % (4.5-6.2)
[2017-01-16 08:03] VITALS: BP 127/73
[2017-01-16 08:41] LABS: RBC MORPHOLOGY COMMENT ABNORMAL RBC MORPH
[2017-01-16] MEDS: PANTOPRAZOLE SODIUM 40 MG DR TABLET PO SCH (09:17)
[2017-01-16] MEDS: DOCUSATE SODIUM 100 MG CAPSULE PO SCH (09:17)
[2017-01-16] MEDS: GABAPENTIN 100 MG CAPSULE PO SCH ×3 (09:18→21:06)
[2017-01-16] MEDS: MULTIVITAMINS WITH MINERALS, THERAPEUTIC TABLET PO SCH (09:18)
[2017-01-16] MEDS: HYDROCORTISONE 10 MG TABLET PO SCH ×2 (09:18→21:06)
[2017-01-16] MEDS: SERTRALINE HCL 100 MG TABLET PO SCH (09:18)
[2017-01-16 11:47] VITALS: BP 118/68
[2017-01-16] MEDS: CIPROFLOXACIN HCL 500 MG TABLET PO SCH ×2 (11:53→21:06)
[2017-01-16] MEDS: INSULIN ASPART 100 UNITS/ML SQ PRN ×3 (11:58→21:12)
[2017-01-16] MEDS ORDERED: SOD FERRIC GLUC COMPLX/SUCROSE 125 MG in SODIUM CHLORIDE 0.9% 100 ML IV ONE (12:00)
[2017-01-16] MEDS ORDERED: SODIUM CHLORIDE 0.9% 100 ML ONE (14:17)
[2017-01-16] MEDS: CHOLECALCIFEROL (VIT D3) 1,000 UNITS TABLET PO SCH ×2 (14:24→21:06)
[2017-01-16 16:24] VITALS: BP 134/86
[2017-01-16 17:33] LABS: GLUCOSE,POINT OF CARE 135 MG/DL (70-110)
[2017-01-16 20:11] VITALS: BP 126/59
[2017-01-16] MEDS: MUPIROCIN CALCIUM 2% 22 GM OINTMENT NASAL SCH (21:06)
[2017-01-16] MEDS: RIVAROXABAN 15 MG TABLET PO SCH (21:06)
[2017-01-17] VITALS (7 sets, daily range): BP systolic 120–155; BP diastolic 60–82
[2017-01-17] MEDS: INSULIN ASPART 100 UNITS/ML SQ PRN ×3 (05:53→17:51)
[2017-01-17 06:24] LABS: CALCIUM, TOTAL 8.3 mg/dL (8.8-10.5); CREATININE 1.38 mg/dL (0.60-1.30); POTASSIUM 4.5 mmol/L (3.5-5.1)
[2017-01-17 07:24] LABS: BASOPHILS % (AUTO) 0.1 % (0.0-2.0); EOSINOPHILS % (AUTO) 0.8 % (1.0-6.0); HEMATOCRIT 30.8 % (36-46); LYMPHOCYTES # (AUTO) 0.8 K/uL (1.0-4.8); LYMPHOCYTES % (AUTO) 11.5 % (22.0-44.0); MEAN CORPUSCULAR HGB CONC 32.5 G/dL (31.0-37.0); MEAN CORPUSCULAR VOLUME 86 fL (80-100); MONOCYTES # (AUTO) 0.5 K/uL (0.1-1.0); MONOCYTES % (AUTO) 6.8 % (2.0-9.0); NEUTROPHILS # (AUTO) 5.9 K/uL (1.8-7.7); NEUTROPHILS % (AUTO) 80.8 % (40.0-70.0); PLATELET COUNT (AUTO) 232 K/uL (150-450); RED BLOOD CELL COUNT(AUTO) 3.57 MIL/uL (4.00-5.20); RED CELL DISTRIBUTION WIDTH 17.3 % (11.5-14.5); WHITE BLOOD COUNT (AUTO) 7.3 K/uL (4.5-11.0)
[2017-01-17] MEDS ORDERED: SODIUM CHLORIDE 0.9% 100 ML ONE (08:26)
[2017-01-17] MEDS: DOCUSATE SODIUM 100 MG CAPSULE PO SCH (08:47)
[2017-01-17] MEDS: PANTOPRAZOLE SODIUM 40 MG DR TABLET PO SCH (08:47)
[2017-01-17] MEDS: CHOLECALCIFEROL (VIT D3) 1,000 UNITS TABLET PO SCH ×2 (08:47→20:18)
[2017-01-17] MEDS: GABAPENTIN 100 MG CAPSULE PO SCH ×3 (08:48→20:18)
[2017-01-17] MEDS: HYDROCORTISONE 10 MG TABLET PO SCH ×2 (08:48→20:18)
[2017-01-17] MEDS: MULTIVITAMINS WITH MINERALS, THERAPEUTIC TABLET PO SCH (08:48)
[2017-01-17] MEDS: SERTRALINE HCL 100 MG TABLET PO SCH (08:48)
[2017-01-17] MEDS: MUPIROCIN CALCIUM 2% 22 GM OINTMENT NASAL SCH ×2 (08:49→20:18)
[2017-01-17] MEDS: CIPROFLOXACIN HCL 500 MG TABLET PO SCH ×2 (08:49→20:18)
[2017-01-17] MEDS: ARIPiprazole 2 MG TABLET PO SCH (12:04)
[2017-01-17] MEDS: METOPROLOL TARTRATE 25 MG TABLET PO SCH (20:18)
[2017-01-17] MEDS: RIVAROXABAN 15 MG TABLET PO SCH (20:18)
[2017-01-17] MEDS: ZOLPIDEM TARTRATE 5 MG TABLET PO PRN (20:19)
[2017-01-17 21:27] LABS: GLUCOSE,POINT OF CARE 140 MG/DL (70-110)
[2017-01-17] MEDS: DiphenhydrAMINE HCL 25 MG CAPSULE PO PRN (22:54)
[2017-01-18 04:27] VITALS: BP 143/67
[2017-01-18 05:28] LABS: GLUCOSE,POINT OF CARE 118 MG/DL (70-110)
[2017-01-18] MEDS: INSULIN ASPART 100 UNITS/ML SQ PRN (06:21)
[2017-01-18 06:46] LABS: BASOPHILS % (AUTO) 0.3 % (0.0-2.0); EOSINOPHILS % (AUTO) 1.5 % (1.0-6.0); HEMATOCRIT 30.3 % (36-46); HEMOGLOBIN 9.9 g/dL (12.0-16.0); LYMPHOCYTES # (AUTO) 0.9 K/uL (1.0-4.8); LYMPHOCYTES % (AUTO) 12.6 % (22.0-44.0); MEAN CORPUSCULAR HEMOGLOBIN 27.9 pg (26.0-34.0); MEAN CORPUSCULAR HGB CONC 32.5 G/dL (31.0-37.0); MEAN CORPUSCULAR VOLUME 86 fL (80-100); MONOCYTES # (AUTO) 0.5 K/uL (0.1-1.0); MONOCYTES % (AUTO) 7.2 % (2.0-9.0); NEUTROPHILS # (AUTO) 5.5 K/uL (1.8-7.7); NEUTROPHILS % (AUTO) 78.4 % (40.0-70.0); PLATELET COUNT (AUTO) 251 K/uL (150-450); RED BLOOD CELL COUNT(AUTO) 3.54 MIL/uL (4.00-5.20); RED CELL DISTRIBUTION WIDTH 17.5 % (11.5-14.5)
[2017-01-18 06:58] LABS: CALCIUM, TOTAL 8.9 mg/dL (8.8-10.5); CREATININE 1.11 mg/dL (0.60-1.30); POTASSIUM 4.1 mmol/L (3.5-5.1)
[2017-01-18 07:51] VITALS: BP 149/61
[2017-01-18] MEDS: MULTIVITAMINS WITH MINERALS, THERAPEUTIC TABLET PO SCH (08:06)
[2017-01-18] MEDS: PANTOPRAZOLE SODIUM 40 MG DR TABLET PO SCH (08:06)
[2017-01-18] MEDS: SERTRALINE HCL 100 MG TABLET PO SCH (08:06)
[2017-01-18] MEDS: ARIPiprazole 2 MG TABLET PO SCH (08:06)
[2017-01-18] MEDS: HYDROCORTISONE 10 MG TABLET PO SCH (08:06)
[2017-01-18] MEDS: METOPROLOL TARTRATE 25 MG TABLET PO SCH (08:06)
[2017-01-18] MEDS: CIPROFLOXACIN HCL 500 MG TABLET PO SCH (08:06)
[2017-01-18] MEDS: CHOLECALCIFEROL (VIT D3) 1,000 UNITS TABLET PO SCH (08:06)
[2017-01-18] MEDS: DOCUSATE SODIUM 100 MG CAPSULE PO SCH (08:06)
[2017-01-18] MEDS: MUPIROCIN CALCIUM 2% 22 GM OINTMENT NASAL SCH (08:06)
[2017-01-18] MEDS: MORPHINE SULFATE 2 MG/ML SYRINGE IVP PRN (08:08)
[2017-01-18] MEDS: GABAPENTIN 100 MG CAPSULE PO SCH ×2 (08:08→16:38)
[2017-01-18 10:05] LABS: RBC MORPHOLOGY COMMENT ABNORMAL RBC MORPH
[2017-01-18 12:09] VITALS: BP 139/80
[2017-01-18 14:57] LABS: DIGOXIN 0.46 ng/mL (0.90-2.00)
[2017-01-18] MEDS ORDERED: METF500T4 PO (15:29)
[2017-01-18] MEDS ORDERED: FURO20 PO (15:29)
[2017-01-18] MEDS ORDERED: RIVA15T PO (15:29)
[2017-01-18] MEDS ORDERED: GABA-529 PO (15:32)
[2017-01-18] MEDS ORDERED: METO25 PO (15:32)
[2017-01-18] MEDS ORDERED: VITAD1000 PO (15:32)
[2017-01-18] MEDS ORDERED: CIPR-278 PO (15:32)
[2017-01-18 15:56] VITALS: BP 146/79
[2017-01-19 09:59] LABS: GLUCOSE COMMENT 1 Received Meds; GLUCOSE,POINT OF CARE 144 MG/DL (70-110)
[2017-01-19 10:04] LABS: GLUCOSE,POINT OF CARE 131 MG/DL (70-110)
[2017-01-19 10:04] LABS: GLUCOSE COMMENT 1 Received Meds; GLUCOSE,POINT OF CARE 228 MG/DL (70-110)
[2017-01-19 10:04] LABS: GLUCOSE,POINT OF CARE 123 MG/DL (70-110)
[2017-01-22 19:53] LABS: GLUCOSE,POINT OF CARE 145 MG/DL (70-110)
[2017-01-22 19:53] LABS: GLUCOSE,POINT OF CARE 133 MG/DL (70-110)
[2017-01-22 19:53] LABS: GLUCOSE,POINT OF CARE 135 MG/DL (70-110)
[2017-01-22 19:57] LABS: GLUCOSE,POINT OF CARE 120 MG/DL (70-110)
[2017-01-22 19:58] LABS: GLUCOSE,POINT OF CARE 138 MG/DL (70-110)
== END 2017-01-18 17:55 | disposition home health service (06) | DRG 683 ==
LOC: EMS 03:12 → ICU 05:06 → 5S 01-15 16:00
PROVIDERS: ADMIT Internal Medicine Geriatric Medicine; ATTEND Internal Medicine Geriatric Medicine
DX: N17.9 Acute kidney failure, unspecified (principal); N39.0 Urinary tract infection, site not specified; I95.9 Hypotension, unspecified; I13.0 Hypertensive heart and chronic kidney disease with heart failure and stage 1 through stage 4 chronic kidney disease, or unspecified chronic kidney disease; E11.22 Type 2 diabetes mellitus with diabetic chronic kidney disease; F03.90 Unspecified dementia, unspecified severity, without behavioral disturbance, psychotic disturbance, mood disturbance, and anxiety; I50.9 Heart failure, unspecified; E27.40 Unspecified adrenocortical insufficiency; R00.1 Bradycardia, unspecified; K21.9 Gastro-esophageal reflux disease without esophagitis; I48.91 Unspecified atrial fibrillation; G70.00 Myasthenia gravis without (acute) exacerbation; G62.9 Polyneuropathy, unspecified; T46.0X5A Adverse effect of cardiac-stimulant glycosides and drugs of similar action, initial encounter; E11.40 Type 2 diabetes mellitus with diabetic neuropathy, unspecified; D64.9 Anemia, unspecified; E66.9 Obesity, unspecified; E78.5 Hyperlipidemia, unspecified; I34.0 Nonrheumatic mitral (valve) insufficiency; I87.8 Other specified disorders of veins; J84.10 Pulmonary fibrosis, unspecified; F41.9 Anxiety disorder, unspecified; N18.3 Chronic kidney disease, stage 3 (moderate); N28.1 Cyst of kidney, acquired; Z22.322 Carrier or suspected carrier of Methicillin resistant Staphylococcus aureus; Z68.30 Body mass index [BMI] 30.0-30.9, adult; Z79.01 Long term (current) use of anticoagulants; Z79.899 Other long term (current) drug therapy; Z90.710 Acquired absence of both cervix and uterus
CPT/HCPCS: 71250; 76770; 80307; 82306; 82570; 82607; 82728; 82746; 82962; 83036; 83540; 83550; 83605; 83735; 84156; 84300; 84443; 84540; 87081; 87086; 89050; 90471; 93005; 93306; 96361; 96374; 96375; 97162; 97530; 99291; 99292; G0480; G0481; J0461; J2270; J2916; J3010; J3475; J7050; J7060

== ENCOUNTER 2017-02-12 02:39 | Inpatient (IN) | payer MEDICARE, OTHER ==
[~2017-02-12] VITALS: Ht 160 cm; Wt 90.6 kg
[~2017-02-12 02:39] MED LIST changes: +ARIP2 PO; +CIPR-278 PO; -DIGO125T PO; -DILT30TA38 PO; +DSS100 PO; -HYD25 PO; -HYDR-4061 PO; -LORA0.5T2 PO; +METF500T4 PO; +METO25 PO; +MICO71PO TP; -MULT-248 PO; -ONDA4 PO; +PANT40TA25 PO; -PROM25 PO; +RIVA15T PO; +VITAD1000 PO; -ZOLP5 PO
[2017-02-12] MEDS ORDERED: DIGO125T PO (02:53)
[2017-02-12] MEDS ORDERED: DILT-39 PO (02:53)
[2017-02-12 03:33] LABS: EOSINOPHILS % (AUTO) 0.1 % (1.0-6.0); HEMATOCRIT 26.9 % (36-46); HEMOGLOBIN 8.9 g/dL (12.0-16.0); LYMPHOCYTES # (AUTO) 0.5 K/uL (1.0-4.8); LYMPHOCYTES % (AUTO) 2.6 % (22.0-44.0); MEAN CORPUSCULAR VOLUME 85 fL (80-100); MONOCYTES # (AUTO) 0.3 K/uL (0.1-1.0); MONOCYTES % (AUTO) 1.8 % (2.0-9.0); NEUTROPHILS # (AUTO) 17.1 K/uL (1.8-7.7); NEUTROPHILS % (AUTO) 95.5 % (40.0-70.0); PLATELET COUNT (AUTO) 217 K/uL (150-450); RED BLOOD CELL COUNT(AUTO) 3.17 MIL/uL (4.00-5.20); RED CELL DISTRIBUTION WIDTH 18.3 % (11.5-14.5)
[2017-02-12 03:40] LABS: APPEARANCE,URINE CLOUDY (CLEAR); BILIRUBIN,URINE NEGATIVE (NEGATIVE); GLUCOSE, URINE (UA) NEGATIVE (NEGATIVE); KETONES,URINE NEGATIVE (NEGATIVE); LEUKOCYTE ESTERASE ,URINE NEGATIVE (NEGATIVE); NITRATE,URINE POSITIVE (NEGATIVE); OCCULT BLOOD,URINE TRACE (NEGATIVE); PH,URINE 5.5 (5.0-8.0); PROTEIN,URINE NEGATIVE (NEGATIVE); UROBILINOGEN,URINE 0.2 mg/dL (<=1.0)
[2017-02-12 03:41] LABS: CALCIUM, TOTAL 8.3 mg/dL (8.8-10.5); CREATININE 1.57 mg/dL (0.60-1.30); POTASSIUM 3.8 mmol/L (3.5-5.1)
[2017-02-12 03:42] LABS: INR 1.1 (0.9-1.1); PROTHROMBIN TIME 11.4 SEC (9.4-11.6)
[2017-02-12 03:47] LABS: ALBUMIN 2.9 g/dL (3.4-5.0); BILIRUBIN,TOTAL 0.5 mg/dL (0.1-1.0); TOTAL PROTEIN, SERUM 6.8 g/dL (6.4-8.2)
[2017-02-12 03:58] LABS: BACTERIA,URINE Moderate /HPF (None Seen)
[2017-02-12] MEDS ORDERED: PIPERACILLIN/TAZO 3.375 GM/D5W 50 ML IV ONE (04:15)
[2017-02-12] MEDS ORDERED: VANCOMYCIN HCL 1 GM/D5% WATER 200 ML IV ONE (04:15)
[2017-02-12] MEDS ORDERED: ONDANSETRON HCL 4 MG/2 ML VIAL IVP PRN ×2 (05:15→07:15)
[2017-02-12] MEDS ORDERED: ACETAMINOPHEN 325 MG TABLET PO PRN ×2 (05:15→07:15)
[2017-02-12] MEDS ORDERED: 0.9% SODIUM CHLORIDE 10 ML SYRINGE IVP PRN (05:15)
[2017-02-12 06:52] VITALS: BP 124/79
[2017-02-12 06:52] LABS: GLUCOSE,POINT OF CARE 135 MG/DL (70-110)
[2017-02-12] MEDS ORDERED: IPRATROPIUM BROMIDE 0.5 MG/2.5 ML NEB SOLUTION NEB PRN (07:15)
[2017-02-12] MEDS ORDERED: MAGNESIUM HYDROXIDE SUSPENSION 30 ML UDCUP PO PRN (07:15)
[2017-02-12] MEDS ORDERED: HYDROCODONE/ACETAMINOPHEN 5-325 MG TABLET PO PRN (07:15)
[2017-02-12] MEDS ORDERED: ALBUTEROL SULFATE 2.5 MG/0.5 ML NEB SOLUTION NEB PRN (07:15)
[2017-02-12] MEDS ORDERED: DEXTROSE 50%-WATER 25 GM/50 ML SYRINGE IVP PRN (07:15)
[2017-02-12] MEDS ORDERED: BISACODYL 10 MG RECTAL RECTAL SUPPOSITORY PR PRN (07:15)
[2017-02-12] MEDS ORDERED: ZOLPIDEM TARTRATE 5 MG TABLET PO PRN (07:15)
[2017-02-12] MEDS: MetFORMIN HCL 500 MG TABLET PO SCH ×2 (08:00→17:19)
[2017-02-12 08:02] VITALS: BP 134/74
[2017-02-12] MEDS ORDERED: SODIUM CHLORIDE 0.9% 250 ML IV ONE (09:08)
[2017-02-12] MEDS: DILTIAZEM HCL CD 120 MG ER CAPSULE PO SCH (09:29)
[2017-02-12] MEDS: METOPROLOL TARTRATE 25 MG TABLET PO SCH ×2 (09:29→20:20)
[2017-02-12] MEDS: DIGOXIN 125 MCG TABLET PO SCH (09:29)
[2017-02-12] MEDS: GABAPENTIN 100 MG CAPSULE PO SCH ×3 (09:29→20:20)
[2017-02-12] MEDS: DOCUSATE SODIUM 100 MG CAPSULE PO SCH (09:29)
[2017-02-12] MEDS: SERTRALINE HCL 100 MG TABLET PO SCH (09:29)
[2017-02-12] MEDS: PANTOPRAZOLE SODIUM 40 MG DR TABLET PO SCH (09:29)
[2017-02-12] MEDS: FERROUS SULFATE 325 MG EC TABLET PO SCH (09:29)
[2017-02-12] MEDS: ARIPiprazole 2 MG TABLET PO SCH (09:30)
[2017-02-12 11:05] VITALS: BP 128/64
[2017-02-12] MEDS: PIPERACILLIN SODIUM/TAZOBACTAM 2.25 GM in DEXTROSE 5%-WATER 50 ML IV SCH ×2 (11:07→17:19)
[2017-02-12] MEDS: INSULIN ASPART 100 UNITS/ML SQ PRN (12:07)
[2017-02-12] MEDS: SODIUM CHLORIDE 0.9% 1,000 ML IV SCH (14:01)
[2017-02-12] MEDS ORDERED: DiphenhydrAMINE HCL 50 MG/ML VIAL IM PRN (15:00)
[2017-02-12 15:12] VITALS: BP 97/43
[2017-02-12] MEDS: DiphenhydrAMINE HCL 25 MG CAPSULE PO PRN (17:51)
[2017-02-12 20:12] LABS: GLUCOMETER DEV NAME(LOC) 5N 1M; GLUCOSE,POINT OF CARE 134 MG/DL (70-110)
[2017-02-12 20:12] LABS: GLUCOMETER DEV NAME(LOC) 5N 1M; GLUCOSE,POINT OF CARE 161 MG/DL (70-110)
[2017-02-12 20:22] VITALS: BP 94/55
[2017-02-12] MEDS ORDERED: RIVAROXABAN 15 MG TABLET PO SCH (21:00)
[2017-02-12] MEDS: CefoTEtan DISOD 1 GM/DEXTROSE 50 ML IV SCH (23:35)
[2017-02-13 06:04] VITALS: BP 104/50
[2017-02-13 06:42] LABS: GLUCOMETER DEV NAME(LOC) 5N 2R; GLUCOSE,POINT OF CARE 117 MG/DL (70-110)
[2017-02-13 06:43] LABS: GLUCOMETER DEV NAME(LOC) 5N 2R; GLUCOSE,POINT OF CARE 95 MG/DL (70-110)
[2017-02-13 07:15] VITALS: BP 101/61
[2017-02-13 07:48] LABS: BASOPHILS # (AUTO) 0.02 K/uL (0.00-0.20); BASOPHILS % (AUTO) 0.2 % (0.0-2.0); EOSINOPHILS # (AUTO) 0.17 K/uL (0.00-0.70); EOSINOPHILS % (AUTO) 2.27 % (1.0-6.0); HEMATOCRIT 25.4 % (36-46); HEMOGLOBIN 8.1 g/dL (12.0-16.0); LYMPHOCYTES # (AUTO) 0.7 K/uL (1.0-4.8); LYMPHOCYTES % (AUTO) 8.9 % (22.0-44.0); MEAN CORPUSCULAR HEMOGLOBIN 27.8 pg (26.0-34.0); MEAN CORPUSCULAR HGB CONC 31.9 G/dL (31.0-37.0); MEAN CORPUSCULAR VOLUME 87 fL (80-100); MONOCYTES # (AUTO) 0.5 K/uL (0.1-1.0); MONOCYTES % (AUTO) 6.4 % (2.0-9.0); NEUTROPHILS # (AUTO) 6.1 K/uL (1.8-7.7); NEUTROPHILS % (AUTO) 82.3 % (40.0-70.0); PLATELET COUNT (AUTO) 184 K/uL (150-450); RED CELL DISTRIBUTION WIDTH 18.2 % (11.5-14.5)
[2017-02-13 07:53] LABS: HEMOGLOBIN A1C 6.5 % (4.5-6.2)
[2017-02-13 08:19] LABS: CHOL/HDL RATIO 3.3 (3.9-5.7); CHOLESTEROL 113 mg/dL (131-200); CREATINE KINASE MB 0.9 ng/mL (0-5); CREATINE KINASE, TOTAL 119 U/L (26-192); FREE T4 (FREE THYROXINE) 0.92 ng/dL (0.76-1.46); HDL CHOLESTEROL 34 mg/dL (40-60); LDL CHOL (CALC.) 62 mg/dL (0-130); THYROID STIMULATING HORMONE 2.41 uIU/mL (0.36-3.74); TRIGLYCERIDES 83 mg/dL (15-150)
[2017-02-13] MEDS: DILTIAZEM HCL CD 120 MG ER CAPSULE PO SCH (09:00)
[2017-02-13] MEDS: MetFORMIN HCL 500 MG TABLET PO SCH (09:29)
[2017-02-13] MEDS: GABAPENTIN 100 MG CAPSULE PO SCH ×3 (09:29→20:22)
[2017-02-13] MEDS: DOCUSATE SODIUM 100 MG CAPSULE PO SCH (09:29)
[2017-02-13] MEDS: FERROUS SULFATE 325 MG EC TABLET PO SCH (09:29)
[2017-02-13] MEDS: DIGOXIN 125 MCG TABLET PO SCH (09:29)
[2017-02-13] MEDS: PANTOPRAZOLE SODIUM 40 MG DR TABLET PO SCH (09:29)
[2017-02-13] MEDS: ARIPiprazole 2 MG TABLET PO SCH (09:29)
[2017-02-13] MEDS: CefoTEtan DISOD 1 GM/DEXTROSE 50 ML IV SCH ×2 (09:30→23:30)
[2017-02-13] MEDS: SERTRALINE HCL 100 MG TABLET PO SCH (09:30)
[2017-02-13] MEDS: VITAMINS A & D 60 GM OINTMENT TP SCH (09:30)
[2017-02-13 09:44] LABS: ANION GAP 11 mmol/L (8-16); CARBON DIOXIDE 20 mmol/L (22-29); CHLORIDE 111 mmol/L (98-107); CREATININE 1.49 mg/dL (0.60-1.30); GLOMERULAR FILTR. RATE CALC 34 mL/min (>60); GLUCOSE,RANDOM 90 mg/dL (70-110); POTASSIUM 3.8 mmol/L (3.5-5.1); SODIUM SERUM 142 mmol/L (136-145); UREA NITROGEN, BLOOD 30 mg/dL (7-18)
[2017-02-13 10:20] LABS: FOLATE SERUM 9.6 ng/mL (5.4-)
[2017-02-13] MEDS: DiphenhydrAMINE HCL 25 MG CAPSULE PO PRN ×2 (11:11→17:35)
[2017-02-13] MEDS: METOPROLOL TARTRATE 25 MG TABLET PO SCH ×2 (11:11→20:22)
[2017-02-13] MEDS: HYDROCODONE/ACETAMINOPHEN 5-325 MG TABLET PO PRN (11:11)
[2017-02-13 11:39] VITALS: BP 120/64
[2017-02-13] MEDS: SODIUM CHLORIDE 0.9% 1,000 ML IV SCH (14:21)
[2017-02-13] MEDS: EPOETIN ALFA 10,000 UNITS/ML VIAL SQ SCH (14:21)
[2017-02-13 15:26] VITALS: BP 108/56
[2017-02-13 15:53] LABS: GLUCOMETER DEV NAME(LOC) 5N 2R; GLUCOSE,POINT OF CARE 121 MG/DL (70-110)
[2017-02-13 16:11] LABS: CREATININE,URINE RANDOM 93.1 mg/dL (30.0-125.0)
[2017-02-13] MEDS: INSULIN ASPART 100 UNITS/ML SQ PRN (17:38)
[2017-02-13 20:00] VITALS: BP 105/66
[2017-02-13 22:03] LABS: GLUCOMETER DEV NAME(LOC) 5N 1M; GLUCOSE,POINT OF CARE 101 MG/DL (70-110)
[2017-02-13 22:03] LABS: GLUCOMETER DEV NAME(LOC) 5N 2R; GLUCOSE,POINT OF CARE 117 MG/DL (70-110)
[2017-02-14] VITALS: BP 109/58
[2017-02-14 04:00] VITALS: BP 106/60
[2017-02-14 06:57] LABS: BASOPHILS # (AUTO) 0.01 K/uL (0.00-0.20); BASOPHILS % (AUTO) 0.1 % (0.0-2.0); EOSINOPHILS # (AUTO) 0.17 K/uL (0.00-0.70); EOSINOPHILS % (AUTO) 2.18 % (1.0-6.0); HEMATOCRIT 26.9 % (36-46); HEMOGLOBIN 8.5 g/dL (12.0-16.0); LYMPHOCYTES # (AUTO) 0.8 K/uL (1.0-4.8); LYMPHOCYTES % (AUTO) 10.3 % (22.0-44.0); MEAN CORPUSCULAR HEMOGLOBIN 27.6 pg (26.0-34.0); MEAN CORPUSCULAR HGB CONC 31.8 G/dL (31.0-37.0); MEAN CORPUSCULAR VOLUME 87 fL (80-100); MONOCYTES # (AUTO) 0.4 K/uL (0.1-1.0); MONOCYTES % (AUTO) 5.2 % (2.0-9.0); NEUTROPHILS # (AUTO) 6.5 K/uL (1.8-7.7); NEUTROPHILS % (AUTO) 82.2 % (40.0-70.0); PLATELET COUNT (AUTO) 196 K/uL (150-450); RED CELL DISTRIBUTION WIDTH 17.8 % (11.5-14.5)
[2017-02-14 07:12] LABS: % IRON SATURATION 9.1 % (22-44)
[2017-02-14 07:16] LABS: CALCIUM, TOTAL 8.2 mg/dL (8.8-10.5); CREATININE 1.33 mg/dL (0.60-1.30); PHOSPHORUS 3.4 mg/dL (2.5-4.9); POTASSIUM 3.9 mmol/L (3.5-5.1)
[2017-02-14 07:34] VITALS: BP 118/65
[2017-02-14] MEDS: ARIPiprazole 2 MG TABLET PO SCH (08:42)
[2017-02-14] MEDS: SERTRALINE HCL 100 MG TABLET PO SCH (08:42)
[2017-02-14] MEDS: PANTOPRAZOLE SODIUM 40 MG DR TABLET PO SCH (08:42)
[2017-02-14] MEDS: DOCUSATE SODIUM 100 MG CAPSULE PO SCH (08:42)
[2017-02-14] MEDS: FERROUS SULFATE 325 MG EC TABLET PO SCH (08:42)
[2017-02-14] MEDS: METOPROLOL TARTRATE 25 MG TABLET PO SCH ×2 (08:42→20:37)
[2017-02-14] MEDS: DILTIAZEM HCL CD 120 MG ER CAPSULE PO SCH (08:42)
[2017-02-14] MEDS: GABAPENTIN 100 MG CAPSULE PO SCH ×3 (08:42→20:37)
[2017-02-14] MEDS: DIGOXIN 125 MCG TABLET PO SCH (08:42)
[2017-02-14] MEDS: SODIUM CHLORIDE 0.9% 1,000 ML IV SCH (08:43)
[2017-02-14] MEDS: VITAMINS A & D 60 GM OINTMENT TP SCH (08:43)
[2017-02-14] MEDS: SOD FERRIC GLUC COMPLX/SUCROSE 125 MG in SODIUM CHLORIDE 0.9% 100 ML IV SCH (09:27)
[2017-02-14] MEDS: CefoTEtan DISOD 1 GM/DEXTROSE 50 ML IV SCH ×2 (10:35→21:50)
[2017-02-14 11:43] VITALS: BP 121/69
[2017-02-14 13:43] LABS: GLUCOMETER DEV NAME(LOC) 5N 1M; GLUCOSE,POINT OF CARE 112 MG/DL (70-110)
[2017-02-14 15:34] VITALS: BP 117/74
[2017-02-14 19:54] LABS: GLUCOMETER DEV NAME(LOC) 5N 1M; GLUCOSE,POINT OF CARE 129 MG/DL (70-110)
[2017-02-14 20:01] VITALS: BP 107/58
[2017-02-14] MEDS: MUPIROCIN CALCIUM 2% 22 GM OINTMENT NASAL SCH (20:36)
[2017-02-14] MEDS: DiphenhydrAMINE HCL 25 MG CAPSULE PO PRN (20:37)
[2017-02-14] MEDS: HYDROCODONE/ACETAMINOPHEN 5-325 MG TABLET PO PRN (20:37)
[2017-02-14 23:48] LABS: GLUCOMETER DEV NAME(LOC) 5N 1M; GLUCOSE,POINT OF CARE 139 MG/DL (70-110)
[2017-02-15 00:07] VITALS: BP 100/46
[2017-02-15 01:29] LABS: GLUCOMETER DEV NAME(LOC) 5N 2R; GLUCOSE,POINT OF CARE 102 MG/DL (70-110)
[2017-02-15] MEDS: SODIUM CHLORIDE 0.9% 1,000 ML IV SCH (02:29)
[2017-02-15] MEDS ORDERED: NYSTATIN 15 GM POWDER BOTTLE TP PRN (04:15)
[2017-02-15 04:49] VITALS: BP 104/56
[2017-02-15 08:20] LABS: BASOPHILS % (AUTO) 0.1 % (0.0-2.0); EOSINOPHILS # (AUTO) 0.26 K/uL (0.00-0.70); EOSINOPHILS % (AUTO) 3.77 % (1.0-6.0); HEMATOCRIT 26.4 % (36-46); HEMOGLOBIN 8.3 g/dL (12.0-16.0); LYMPHOCYTES # (AUTO) 0.7 K/uL (1.0-4.8); LYMPHOCYTES % (AUTO) 9.7 % (22.0-44.0); MEAN CORPUSCULAR HEMOGLOBIN 27.5 pg (26.0-34.0); MEAN CORPUSCULAR HGB CONC 31.3 G/dL (31.0-37.0); MEAN CORPUSCULAR VOLUME 88 fL (80-100); MONOCYTES # (AUTO) 0.5 K/uL (0.1-1.0); MONOCYTES % (AUTO) 7.6 % (2.0-9.0); NEUTROPHILS # (AUTO) 5.4 K/uL (1.8-7.7); NEUTROPHILS % (AUTO) 78.9 % (40.0-70.0); PLATELET COUNT (AUTO) 186 K/uL (150-450); RED BLOOD CELL COUNT(AUTO) 3.01 MIL/uL (4.00-5.20); RED CELL DISTRIBUTION WIDTH 17.8 % (11.5-14.5)
[2017-02-15 08:36] LABS: CALCIUM, TOTAL 8.1 mg/dL (8.8-10.5); CREATININE 1.48 mg/dL (0.60-1.30); POTASSIUM 3.9 mmol/L (3.5-5.1)
[2017-02-15 08:38] VITALS: BP 101/50
[2017-02-15] MEDS: DILTIAZEM HCL CD 120 MG ER CAPSULE PO SCH (09:00)
[2017-02-15] MEDS: ARIPiprazole 2 MG TABLET PO SCH (09:59)
[2017-02-15] MEDS: METOPROLOL TARTRATE 25 MG TABLET PO SCH ×2 (09:59→20:41)
[2017-02-15] MEDS: DOCUSATE SODIUM 100 MG CAPSULE PO SCH (09:59)
[2017-02-15] MEDS: PANTOPRAZOLE SODIUM 40 MG DR TABLET PO SCH (09:59)
[2017-02-15] MEDS: SOD FERRIC GLUC COMPLX/SUCROSE 125 MG in SODIUM CHLORIDE 0.9% 100 ML IV SCH (09:59)
[2017-02-15] MEDS: GABAPENTIN 100 MG CAPSULE PO SCH ×3 (09:59→20:41)
[2017-02-15] MEDS: FERROUS SULFATE 325 MG EC TABLET PO SCH (09:59)
[2017-02-15] MEDS: MUPIROCIN CALCIUM 2% 22 GM OINTMENT NASAL SCH ×2 (09:59→20:41)
[2017-02-15] MEDS: DIGOXIN 125 MCG TABLET PO SCH (09:59)
[2017-02-15] MEDS: SERTRALINE HCL 100 MG TABLET PO SCH (09:59)
[2017-02-15] MEDS: DiphenhydrAMINE HCL 25 MG CAPSULE PO PRN (09:59)
[2017-02-15] MEDS: VITAMINS A & D 60 GM OINTMENT TP SCH (10:00)
[2017-02-15] MEDS ORDERED: SODIUM CHLORIDE 0.9% 250 ML IV ONE (10:23)
[2017-02-15] MEDS: HYDROCODONE/ACETAMINOPHEN 5-325 MG TABLET PO PRN (10:49)
[2017-02-15] MEDS: CefoTEtan DISOD 1 GM/DEXTROSE 50 ML IV SCH ×2 (10:50→21:21)
[2017-02-15 11:50] VITALS: BP 118/54
[2017-02-15] MEDS: INSULIN ASPART 100 UNITS/ML SQ PRN (12:17)
[2017-02-15 12:37] LABS: GLUCOMETER DEV NAME(LOC) 5N 2R; GLUCOSE,POINT OF CARE 128 MG/DL (70-110)
[2017-02-15 15:56] VITALS: BP 117/56
[2017-02-15 17:53] LABS: GLUCOMETER DEV NAME(LOC) 5N 1M; GLUCOSE,POINT OF CARE 96 MG/DL (70-110)
[2017-02-15 17:53] LABS: GLUCOMETER DEV NAME(LOC) 5N 1M; GLUCOSE,POINT OF CARE 108 MG/DL (70-110)
[2017-02-15 21:37] VITALS: BP 131/60
[2017-02-16 01:35] VITALS: BP 118/65
[2017-02-16 06:23] VITALS: BP 110/50
[2017-02-16 07:05] LABS: BASOPHILS # (AUTO) 0.02 K/uL (0.00-0.20); BASOPHILS % (AUTO) 0.2 % (0.0-2.0); EOSINOPHILS # (AUTO) 0.16 K/uL (0.00-0.70); EOSINOPHILS % (AUTO) 2.29 % (1.0-6.0); HEMATOCRIT 25.6 % (36-46); HEMOGLOBIN 8.2 g/dL (12.0-16.0); LYMPHOCYTES # (AUTO) 0.8 K/uL (1.0-4.8); LYMPHOCYTES % (AUTO) 11.8 % (22.0-44.0); MEAN CORPUSCULAR HEMOGLOBIN 27.8 pg (26.0-34.0); MEAN CORPUSCULAR HGB CONC 31.8 G/dL (31.0-37.0); MEAN CORPUSCULAR VOLUME 87 fL (80-100); MONOCYTES # (AUTO) 0.5 K/uL (0.1-1.0); MONOCYTES % (AUTO) 7.5 % (2.0-9.0); NEUTROPHILS # (AUTO) 5.4 K/uL (1.8-7.7); NEUTROPHILS % (AUTO) 78.3 % (40.0-70.0); PLATELET COUNT (AUTO) 197 K/uL (150-450); RED BLOOD CELL COUNT(AUTO) 2.94 MIL/uL (4.00-5.20); RED CELL DISTRIBUTION WIDTH 17.2 % (11.5-14.5)
[2017-02-16 07:19] LABS: CALCIUM, TOTAL 8.4 mg/dL (8.8-10.5); CREATININE 1.38 mg/dL (0.60-1.30)
[2017-02-16 07:30] VITALS: BP 121/71
[2017-02-16] MEDS: EPOETIN ALFA 10,000 UNITS/ML VIAL SQ SCH (09:53)
[2017-02-16] MEDS: SOD FERRIC GLUC COMPLX/SUCROSE 125 MG in SODIUM CHLORIDE 0.9% 100 ML IV SCH (09:54)
[2017-02-16] MEDS: DIGOXIN 125 MCG TABLET PO SCH (09:54)
[2017-02-16] MEDS: SERTRALINE HCL 100 MG TABLET PO SCH (09:54)
[2017-02-16] MEDS: MUPIROCIN CALCIUM 2% 22 GM OINTMENT NASAL SCH ×2 (09:54→21:33)
[2017-02-16] MEDS: GABAPENTIN 100 MG CAPSULE PO SCH ×3 (09:54→21:32)
[2017-02-16] MEDS: FERROUS SULFATE 325 MG EC TABLET PO SCH (09:54)
[2017-02-16] MEDS: DOCUSATE SODIUM 100 MG CAPSULE PO SCH (09:55)
[2017-02-16] MEDS: DILTIAZEM HCL CD 120 MG ER CAPSULE PO SCH (09:55)
[2017-02-16] MEDS: VITAMINS A & D 60 GM OINTMENT TP SCH (09:55)
[2017-02-16] MEDS: PANTOPRAZOLE SODIUM 40 MG DR TABLET PO SCH (09:55)
[2017-02-16] MEDS: METOPROLOL TARTRATE 25 MG TABLET PO SCH ×2 (09:55→21:33)
[2017-02-16] MEDS: ARIPiprazole 2 MG TABLET PO SCH (09:55)
[2017-02-16 11:30] VITALS: BP 134/62
[2017-02-16] MEDS: CefoTEtan DISOD 1 GM/DEXTROSE 50 ML IV SCH (12:04)
[2017-02-16 15:07] LABS: GLUCOMETER DEV NAME(LOC) 5N 2R; GLUCOSE,POINT OF CARE 96 MG/DL (70-110)
[2017-02-16 15:07] LABS: GLUCOMETER DEV NAME(LOC) 5N 2R; GLUCOSE,POINT OF CARE 119 MG/DL (70-110)
[2017-02-16 15:07] LABS: GLUCOMETER DEV NAME(LOC) 5N 2R; GLUCOSE,POINT OF CARE 107 MG/DL (70-110)
[2017-02-16 16:21] VITALS: BP 114/56
[2017-02-16 19:38] VITALS: BP 114/62
[2017-02-16] MEDS: CefTAZidime PENTAHYDRATE 1 GM in DEXTROSE 5%-WATER 50 ML IV SCH (21:33)
[2017-02-16] MEDS: DiphenhydrAMINE HCL 25 MG CAPSULE PO PRN (21:37)
[2017-02-16] MEDS ORDERED: VANCOMYCIN HCL 1.5 GM in DEXTROSE 5%-WATER 250 ML IV ONE (22:00)
[2017-02-17 00:36] VITALS: BP 100/55
[2017-02-17 01:48] LABS: GLUCOMETER DEV NAME(LOC) 5N 1M; GLUCOSE,POINT OF CARE 124 MG/DL (70-110)
[2017-02-17 01:48] LABS: GLUCOMETER DEV NAME(LOC) 5N 1M; GLUCOSE,POINT OF CARE 137 MG/DL (70-110)
[2017-02-17 05:04] VITALS: BP 110/45
[2017-02-17 06:45] LABS: BASOPHILS % (AUTO) 0.1 % (0.0-2.0); EOSINOPHILS % (AUTO) 2.69 % (1.0-6.0); HEMATOCRIT 27.9 % (36-46); HEMOGLOBIN 8.8 g/dL (12.0-16.0); LYMPHOCYTES # (AUTO) 0.8 K/uL (1.0-4.8); LYMPHOCYTES % (AUTO) 10.1 % (22.0-44.0); MEAN CORPUSCULAR HEMOGLOBIN 27.3 pg (26.0-34.0); MEAN CORPUSCULAR HGB CONC 31.4 G/dL (31.0-37.0); MEAN CORPUSCULAR VOLUME 87 fL (80-100); MONOCYTES # (AUTO) 0.4 K/uL (0.1-1.0); MONOCYTES % (AUTO) 5.8 % (2.0-9.0); NEUTROPHILS # (AUTO) 6.2 K/uL (1.8-7.7); NEUTROPHILS % (AUTO) 81.4 % (40.0-70.0); PLATELET COUNT (AUTO) 197 K/uL (150-450); RED BLOOD CELL COUNT(AUTO) 3.22 MIL/uL (4.00-5.20); RED CELL DISTRIBUTION WIDTH 17.1 % (11.5-14.5)
[2017-02-17 06:47] LABS: CALCIUM, TOTAL 8.6 mg/dL (8.8-10.5); CREATININE 1.28 mg/dL (0.60-1.30); POTASSIUM 4.1 mmol/L (3.5-5.1)
[2017-02-17 07:53] VITALS: BP 134/61
[2017-02-17] MEDS: PANTOPRAZOLE SODIUM 40 MG DR TABLET PO SCH (07:59)
[2017-02-17] MEDS: METOPROLOL TARTRATE 25 MG TABLET PO SCH (07:59)
[2017-02-17] MEDS: FERROUS SULFATE 325 MG EC TABLET PO SCH (07:59)
[2017-02-17] MEDS ORDERED: VANCOMYCIN HCL 1.5 GM in DEXTROSE 5%-WATER 250 ML IV SCH (08:00)
[2017-02-17] MEDS: DIGOXIN 125 MCG TABLET PO SCH (08:00)
[2017-02-17] MEDS: SERTRALINE HCL 100 MG TABLET PO SCH (08:00)
[2017-02-17] MEDS: DILTIAZEM HCL CD 120 MG ER CAPSULE PO SCH (08:00)
[2017-02-17] MEDS: ARIPiprazole 2 MG TABLET PO SCH (08:00)
[2017-02-17] MEDS: GABAPENTIN 100 MG CAPSULE PO SCH ×2 (08:00→15:49)
[2017-02-17] MEDS: VITAMINS A & D 60 GM OINTMENT TP SCH (08:01)
[2017-02-17] MEDS: DOCUSATE SODIUM 100 MG CAPSULE PO SCH (08:01)
[2017-02-17] MEDS: MUPIROCIN CALCIUM 2% 22 GM OINTMENT NASAL SCH (08:02)
[2017-02-17] MEDS: HYDROCODONE/ACETAMINOPHEN 5-325 MG TABLET PO PRN (09:48)
[2017-02-17] MEDS: CefTAZidime PENTAHYDRATE 1 GM in DEXTROSE 5%-WATER 50 ML IV SCH (09:49)
[2017-02-17] MEDS: SOD FERRIC GLUC COMPLX/SUCROSE 125 MG in SODIUM CHLORIDE 0.9% 100 ML IV SCH (09:49)
[2017-02-17 11:25] VITALS: BP 115/60
[2017-02-17] MEDS ORDERED: CEFT2VIA IV (14:35)
[2017-02-17] MEDS ORDERED: EPOE10I SQ (14:36)
[2017-02-17] MEDS ORDERED: MUPI15CR TP (14:38)
[2017-02-17] MEDS ORDERED: PANT40TA25 PO (14:39)
[2017-02-17] MEDS ORDERED: VANC1IV IV (14:41)
[2017-02-17] MEDS ORDERED: PETR113O TP (14:42)
[2017-02-17] MEDS ORDERED: ACET-784 PO (14:43)
[2017-02-17] MEDS ORDERED: AUD NEB (14:44)
[2017-02-17] MEDS ORDERED: BISA5TAB12 PO (14:45)
[2017-02-17] MEDS ORDERED: DIPH25 PO (14:45)
[2017-02-17] MEDS ORDERED: HYDR-309 PO ×2 (14:47→14:48)
[2017-02-17] MEDS ORDERED: IPRNEB IH (14:49)
[2017-02-17] MEDS ORDERED: MOM30 PO (14:50)
[2017-02-17] MEDS ORDERED: ONDA4 PO (14:51)
[2017-02-17] MEDS ORDERED: NYST30CR9 TP (14:51)
[2017-02-17] MEDS ORDERED: ZOLP5 PO (14:52)
[2017-02-17] MEDS: DiphenhydrAMINE HCL 25 MG CAPSULE PO PRN (15:49)
[2017-02-17 23:07] LABS: GLUCOMETER DEV NAME(LOC) 5N 1M; GLUCOSE,POINT OF CARE 110 MG/DL (70-110)
[2017-02-17 23:08] LABS: GLUCOMETER DEV NAME(LOC) 5N 2R; GLUCOSE,POINT OF CARE 125 MG/DL (70-110)
== END 2017-02-17 17:15 | DRG 871 ==
LOC: EMS 02:41 → 5N 05:21
PROVIDERS: ADMIT Internal Medicine Geriatric Medicine; ATTEND Internal Medicine Geriatric Medicine
DX: A41.9 Sepsis, unspecified organism (principal); G93.40 Encephalopathy, unspecified; E43 Unspecified severe protein-calorie malnutrition; N17.9 Acute kidney failure, unspecified; E11.22 Type 2 diabetes mellitus with diabetic chronic kidney disease; K92.2 Gastrointestinal hemorrhage, unspecified; G70.00 Myasthenia gravis without (acute) exacerbation; I48.91 Unspecified atrial fibrillation; E44.0 Moderate protein-calorie malnutrition; L03.115 Cellulitis of right lower limb; N39.0 Urinary tract infection, site not specified; I13.0 Hypertensive heart and chronic kidney disease with heart failure and stage 1 through stage 4 chronic kidney disease, or unspecified chronic kidney disease; I50.32 Chronic diastolic (congestive) heart failure; L03.116 Cellulitis of left lower limb; E11.40 Type 2 diabetes mellitus with diabetic neuropathy, unspecified; E66.01 Morbid (severe) obesity due to excess calories; F32.9 Major depressive disorder, single episode, unspecified; F41.9 Anxiety disorder, unspecified; D50.9 Iron deficiency anemia, unspecified; E78.5 Hyperlipidemia, unspecified; F03.90 Unspecified dementia, unspecified severity, without behavioral disturbance, psychotic disturbance, mood disturbance, and anxiety; G89.4 Chronic pain syndrome; I70.0 Atherosclerosis of aorta; I87.2 Venous insufficiency (chronic) (peripheral); I87.8 Other specified disorders of veins; J84.10 Pulmonary fibrosis, unspecified; K21.9 Gastro-esophageal reflux disease without esophagitis; L89.90 Pressure ulcer of unspecified site, unspecified stage; N18.9 Chronic kidney disease, unspecified; Z16.24 Resistance to multiple antibiotics; E11.51 Type 2 diabetes mellitus with diabetic peripheral angiopathy without gangrene; B95.62 Methicillin resistant Staphylococcus aureus infection as the cause of diseases classified elsewhere; Z90.710 Acquired absence of both cervix and uterus; Z79.01 Long term (current) use of anticoagulants; Z79.899 Other long term (current) drug therapy; Z87.11 Personal history of peptic ulcer disease; Z79.84 Long term (current) use of oral hypoglycemic drugs; Z68.35 Body mass index [BMI] 35.0-35.9, adult
CPT/HCPCS: 82271; 82306; 82436; 82570; 82607; 82746; 82962; 83036; 83540; 83550; 83735; 84100; 84133; 84145; 84156; 84300; 84439; 84443; 84540; 87040; 87070; 87081; 87086; 87147; 87205; 96365; 96366; 96368; 97112; 97162; 97166; 97530; 97535; 99285; J0713; J0885; J2543; J2916; J3370; J3490; J7030; J7050; J7060

== ENCOUNTER 2017-08-05 23:19 | Inpatient (IN) | payer MEDICARE, OTHER ==
[~2017-08-05] VITALS: Ht 160 cm; Wt 82.0 kg
[~2017-08-05 23:19] MED LIST changes: -ARIP2 PO; +ARIP5TAB8 PO; +AUD NEB; +BISA10S PR; -CIPR-278 PO; +DILT-39 PO; -DSS100 PO; -FERR-89 PO; -GABA-529 PO; +HYDR-309 PO; -HYDR20TA3 PO; +INSU100V SQ; +IPRNEB IH; -LACHLOT TP; +LEVO250 PO; -METF500T4 PO; -MICO71PO TP; +MOM30 PO; +MUPI1OIN4 NS; +NYST30CR9 TP; +ONDA4 PO; +PRED20 PO; -VITAD1000 PO; +ZOLP5 PO
[2017-08-05 23:42] LABS: GLUCOSE,POINT OF CARE 146 MG/DL (70-110)
[2017-08-05] MEDS ORDERED: ACETAMINOPHEN 650 MG RECTAL SUPPOSITORY PR ONE (23:45)
[2017-08-05] MEDS ORDERED: SODIUM CHLORIDE 0.9% 1,000 ML IV ONE ×2 (23:45)
[2017-08-06] VITALS (7 sets, daily range): BP systolic 89–116; BP diastolic 48–64
[2017-08-06 00:03] LABS: BASOPHILS % (AUTO) 0.1 % (0.0-2.0); EOSINOPHILS % (AUTO) 0 % (1.0-6.0); HEMATOCRIT 35.3 % (36-46); HEMOGLOBIN 11.6 g/dL (12.0-16.0); LYMPHOCYTES # (AUTO) 0.4 K/uL (1.0-4.8); LYMPHOCYTES % (AUTO) 3.4 % (22.0-44.0); MEAN CORPUSCULAR HEMOGLOBIN 28.4 pg (26.0-34.0); MEAN CORPUSCULAR HGB CONC 32.8 G/dL (31.0-37.0); MEAN CORPUSCULAR VOLUME 87 fL (80-100); MONOCYTES # (AUTO) 0.1 K/uL (0.1-1.0); MONOCYTES % (AUTO) 1.1 % (2.0-9.0); NEUTROPHILS # (AUTO) 9.9 K/uL (1.8-7.7); PLATELET COUNT (AUTO) 178 K/uL (150-450); RED BLOOD CELL COUNT(AUTO) 4.08 MIL/uL (4.00-5.20); RED CELL DISTRIBUTION WIDTH 17.6 % (11.5-14.5)
[2017-08-06 00:05] LABS: NEUTROPHILS % (AUTO) 95.4 % (40.0-70.0)
[2017-08-06 00:07] LABS: ABG A-A DIFF O2 32.5 mmHg (10-20.0); ABG BASE EXCESS -5.6 mmol/L (-2.0-3.0); ABG CARBOXYHEMOGLOBIN 1.7 % (0.0-1.5); ABG HCO3 20.7 mmol/L (22.0-26.0); ABG METHEMOGLOBIN 0.2 % (0.0-1.5); ABG OXYGEN CONTENT 13.8 mL/dL (15.0-23.0); ABG OXYGEN SATURATION 93.8 % (95.0-98.0); ABG PCO2 30 mmHg (35-45); ABG PH 7.416 (7.35-7.450); ABG TOTAL HEMOGLOBIN 10.6 G/dL (12.0-18.0); O2 DEVICE,BLOOD GAS ROOM AIR (ROOM AIR); PO2, ARTERIAL BG 80.2 mmHg (75.0-83.0); SITE, BLOOD GAS LFT RADIAL; SOURCE, BLOOD GAS ARTERIAL; TEMPERATURE, FAHRENHEIT, BG 102.5 FAHREN (96.0-98.6)
[2017-08-06 00:25] LABS: AMMONIA 11 umol/L (11-32)
[2017-08-06 00:26] LABS: TROPONIN I < 0.02 ng/mL (0.00-0.05)
[2017-08-06 00:29] LABS: APPEARANCE,URINE CLEAR (CLEAR); BILIRUBIN,URINE NEGATIVE (NEGATIVE); GLUCOSE, URINE (UA) NEGATIVE (NEGATIVE); KETONES,URINE NEGATIVE (NEGATIVE); LEUKOCYTE ESTERASE ,URINE TRACE (NEGATIVE); NITRATE,URINE POSITIVE (NEGATIVE); OCCULT BLOOD,URINE SMALL (NEGATIVE); PH,URINE 5.5 (5.0-8.0); PROTEIN,URINE NEGATIVE (NEGATIVE); UROBILINOGEN,URINE 0.2 mg/dL (<=1.0)
[2017-08-06 00:29] LABS: ANION GAP 11 mmol/L (8-16); CALCIUM, TOTAL 8.9 mg/dL (8.8-10.5); CARBON DIOXIDE 24 mmol/L (22-29); CHLORIDE 102 mmol/L (98-107); CREATININE 1.59 mg/dL (0.60-1.30); GLOMERULAR FILTR. RATE CALC 32 mL/min (>60); GLUCOSE,RANDOM 149 mg/dL (70-110); POTASSIUM 4.6 mmol/L (3.5-5.1); SODIUM SERUM 137 mmol/L (136-145); UREA NITROGEN, BLOOD 39 mg/dL (7-18)
[2017-08-06 00:32] LABS: AMPHET/METH SCREEN,URINE NEGATIVE (NEGATIVE); BARBITURATE SCREEN, URINE NEGATIVE (NEGATIVE); BENZODIAZEPINES SCREEN,URINE NEGATIVE (NEGATIVE); CANNABINOID SCREEN,URINE NEGATIVE (NEGATIVE); COCAINE SCREEN,URINE NEGATIVE (NEGATIVE); METHADONE SCREEN, URINE NEGATIVE (NEGATIVE); OPIATE SCREEN,URINE POSITIVE (NEGATIVE)
[2017-08-06 00:33] LABS: ALANINE AMINOTRANSFERASE 24 U/L (12-78); ALBUMIN 3.3 g/dL (3.4-5.0); ALKALINE PHOSPHATASE 122 U/L (46-116); ASPARTATE AMINOTRANSFERASE 19 U/L (15-37); BILIRUBIN,TOTAL 0.6 mg/dL (0.1-1.0); LIPASE 46 U/L (73-393); TOTAL PROTEIN, SERUM 7.9 g/dL (6.4-8.2)
[2017-08-06 00:35] LABS: PHENCYCLIDINE SCREEN,URINE NEGATIVE (NEGATIVE)
[2017-08-06 00:46] LABS: LACTATE DEHYDROGENASE 259 U/L (81-234)
[2017-08-06 00:48] LABS: LACTIC ACID 2.8 mmol/L (0.4-2.0)
[2017-08-06 00:54] LABS: BACTERIA,URINE Moderate /HPF (None Seen)
[2017-08-06 00:55] LABS: SQUAMOUS EPITHELIAL CELL,UR Few /LPF (None Seen)
[2017-08-06] MEDS ORDERED: VANCOMYCIN HCL 1 GM/D5% WATER 200 ML IV ONE (01:30)
[2017-08-06 01:50] LABS: B-TYPE NATRIURETIC PEPTIDE 1380 pg/mL (0-100)
[2017-08-06] MEDS ORDERED: ACETAMINOPHEN 325 MG TABLET PO PRN (02:00)
[2017-08-06] MEDS ORDERED: ONDANSETRON HCL 4 MG/2 ML VIAL IVP PRN ×2 (02:00→07:30)
[2017-08-06] MEDS ORDERED: 0.9% SODIUM CHLORIDE 10 ML SYRINGE IVP PRN (02:00)
[2017-08-06] MEDS ORDERED: DEX IS IV ONE (04:00)
[2017-08-06] MEDS ORDERED: PIPERACILLIN IV ONE (04:00)
[2017-08-06] MEDS ORDERED: TAZOBACTAM IV ONE (04:00)
[2017-08-06] MEDS ORDERED: PIPERACILLIN IV SCH ×2 (04:00→10:00)
[2017-08-06] MEDS ORDERED: DEX IS IV SCH ×2 (04:00→10:00)
[2017-08-06] MEDS ORDERED: TAZOBACTAM IV SCH ×2 (04:00→10:00)
[2017-08-06] MEDS ORDERED: HEPARIN SODIUM,PORCINE 5,000 UNITS/ML VIAL SQ SCH (07:30)
[2017-08-06] MEDS ORDERED: IPRATROPIUM BROMIDE 0.5 MG/2.5 ML NEB SOLUTION NEB SCH (07:30)
[2017-08-06] MEDS ORDERED: ALBUTEROL SULFATE 2.5 MG/0.5 ML NEB SOLUTION NEB SCH (07:30)
[2017-08-06] MEDS ORDERED: MAGNESIUM HYDROXIDE SUSPENSION 30 ML UDCUP PO PRN (07:30)
[2017-08-06] MEDS ORDERED: BISACODYL 10 MG RECTAL RECTAL SUPPOSITORY PR PRN (07:30)
[2017-08-06] MEDS ORDERED: DEXTROSE 50%-WATER 25 GM/50 ML SYRINGE IVP PRN (07:45)
[2017-08-06] MEDS: FUROSEMIDE 20 MG/2 ML VIAL IVP SCH ×2 (08:52→20:19)
[2017-08-06] MEDS: CefTRIAXone SODIUM 1 GM in DEXTROSE 5%-WATER 10 ML IV SCH (08:53)
[2017-08-06] MEDS: PANTOPRAZOLE SODIUM 40 MG/VIAL IVP SCH (08:53)
[2017-08-06] MEDS: AZITHROMYCIN 250 MG TABLET PO SCH (08:55)
[2017-08-06] MEDS ORDERED: PIPERACILLIN SODIUM/TAZOBACTAM 2.25 GM in DEXTROSE 5%-WATER 50 ML IV SCH (10:00)
[2017-08-06] MEDS: METOPROLOL TARTRATE 25 MG TABLET PO SCH ×2 (12:45→23:46)
[2017-08-06] MEDS ORDERED: DIGOXIN 250 MCG/ML 2 ML AMP IVP ONE (13:45)
[2017-08-06] MEDS: ACETAMINOPHEN 325 MG TABLET PO PRN (14:12)
[2017-08-06] MEDS: IPRATROPIUM BROMIDE 0.5 MG/2.5 ML NEB SOLUTION NEB SCH ×2 (14:45→19:22)
[2017-08-06] MEDS: ALBUTEROL SULFATE 2.5 MG/0.5 ML NEB SOLUTION NEB SCH ×2 (14:46→19:22)
[2017-08-06 16:33] LABS: GLUCOMETER DEV NAME(LOC) 5N 2S; GLUCOSE,POINT OF CARE 141 MG/DL (70-110)
[2017-08-06] MEDS: RIVAROXABAN 15 MG TABLET PO SCH (18:11)
[2017-08-06] MEDS ORDERED: VANCOMYCIN HCL 500 MG in DEXTROSE 5%-WATER 100 ML IV ONE (19:45)
[2017-08-06] MEDS: HEPARIN SODIUM,PORCINE 5,000 UNITS/ML VIAL SQ SCH (20:19)
[2017-08-06] MEDS ORDERED: METOPROLOL TARTRATE 25 MG TABLET PO SCH (21:00)
[2017-08-06] MEDS ORDERED: VANCOMYCIN HCL 1 GM/D5% WATER 200 ML IV SCH ×2 (22:00)
[2017-08-07] MEDS: ACETAMINOPHEN 325 MG TABLET PO PRN ×2 (01:33→21:35)
[2017-08-07] MEDS: ALBUTEROL SULFATE 2.5 MG/0.5 ML NEB SOLUTION NEB SCH ×4 (01:54→19:40)
[2017-08-07] MEDS: IPRATROPIUM BROMIDE 0.5 MG/2.5 ML NEB SOLUTION NEB SCH ×4 (01:54→19:40)
[2017-08-07 04:53] VITALS: BP 131/62
[2017-08-07 07:09] LABS: BASOPHILS % (AUTO) 0.1 % (0.0-2.0); EOSINOPHILS % (AUTO) 0.5 % (1.0-6.0); HEMOGLOBIN 8.8 g/dL (12.0-16.0); LYMPHOCYTES # (AUTO) 0.5 K/uL (1.0-4.8); LYMPHOCYTES % (AUTO) 4.8 % (22.0-44.0); MEAN CORPUSCULAR HEMOGLOBIN 28.5 pg (26.0-34.0); MEAN CORPUSCULAR HGB CONC 32.8 G/dL (31.0-37.0); MEAN CORPUSCULAR VOLUME 87 fL (80-100); MONOCYTES # (AUTO) 0.3 K/uL (0.1-1.0); MONOCYTES % (AUTO) 3.3 % (2.0-9.0); NEUTROPHILS # (AUTO) 8.7 K/uL (1.8-7.7); PLATELET COUNT (AUTO) 139 K/uL (150-450); RED CELL DISTRIBUTION WIDTH 17.8 % (11.5-14.5)
[2017-08-07 07:10] LABS: HEMOGLOBIN A1C 6.2 % (4.5-6.2); NEUTROPHILS % (AUTO) 91.3 % (40.0-70.0)
[2017-08-07 07:17] LABS: GLUCOMETER DEV NAME(LOC) 5N 2S; GLUCOSE,POINT OF CARE 141 MG/DL (70-110)
[2017-08-07 07:17] LABS: GLUCOMETER DEV NAME(LOC) 5N 2S; GLUCOSE,POINT OF CARE 110 MG/DL (70-110)
[2017-08-07] MEDS: VANCOMYCIN HCL 1 GM/D5% WATER 200 ML IV SCH (07:21)
[2017-08-07 07:26] LABS: LACTIC ACID 1.2 mmol/L (0.4-2.0)
[2017-08-07 07:38] VITALS: BP 112/76
[2017-08-07 07:39] LABS: FOLATE SERUM 9.6 ng/mL (5.4-)
[2017-08-07 07:47] LABS: ANION GAP 10 mmol/L (8-16); CARBON DIOXIDE 23 mmol/L (22-29); CHLORIDE 104 mmol/L (98-107); CHOL/HDL RATIO 2.8 (3.9-5.7); CHOLESTEROL 102 mg/dL (131-200); CREATINE KINASE MB 2.5 ng/mL (0-5); CREATINE KINASE, TOTAL 247 U/L (26-192); CREATININE 1.48 mg/dL (0.60-1.30); FREE T4 (FREE THYROXINE) 0.99 ng/dL (0.76-1.46); GLOMERULAR FILTR. RATE CALC 34 mL/min (>60); GLUCOSE,RANDOM 97 mg/dL (70-110); HDL CHOLESTEROL 36 mg/dL (40-60); LDL CHOL (CALC.) 50 mg/dL (0-130); POTASSIUM 4.1 mmol/L (3.5-5.1); SODIUM SERUM 137 mmol/L (136-145); THYROID STIMULATING HORMONE 4.19 uIU/mL (0.36-3.74); TRIGLYCERIDES 79 mg/dL (15-150); UREA NITROGEN, BLOOD 45 mg/dL (7-18); VANCOMYCIN,RANDOM 13.8 mcg/mL (25.0-50.0)
[2017-08-07 07:48] LABS: GLUCOMETER DEV NAME(LOC) 5S 2N; GLUCOSE,POINT OF CARE 113 MG/DL (70-110)
[2017-08-07] MEDS: PANTOPRAZOLE SODIUM 40 MG/VIAL IVP SCH (08:41)
[2017-08-07] MEDS: AZITHROMYCIN 250 MG TABLET PO SCH (08:42)
[2017-08-07] MEDS: CefTRIAXone SODIUM 1 GM in DEXTROSE 5%-WATER 10 ML IV SCH (08:42)
[2017-08-07] MEDS: HEPARIN SODIUM,PORCINE 5,000 UNITS/ML VIAL SQ SCH ×2 (08:42→21:35)
[2017-08-07] MEDS: METOPROLOL TARTRATE 25 MG TABLET PO SCH ×2 (08:42→21:35)
[2017-08-07] MEDS: FUROSEMIDE 20 MG/2 ML VIAL IVP SCH ×2 (11:00→21:34)
[2017-08-07] MEDS: CHOLECALCIFEROL (VIT D3) 1,000 UNITS TABLET PO SCH (11:00)
[2017-08-07 11:04] VITALS: BP 118/50
[2017-08-07] MEDS: EPOETIN ALFA 10,000 UNITS/ML VIAL SQ SCH (14:39)
[2017-08-07 16:13] VITALS: BP 117/59
[2017-08-07] MEDS: RIVAROXABAN 15 MG TABLET PO SCH (17:51)
[2017-08-07] MEDS: INSULIN LISPRO 100 UNITS/ML SQ PRN (17:58)
[2017-08-07 19:31] VITALS: BP 115/76
[2017-08-07 19:32] LABS: GLUCOMETER DEV NAME(LOC) 5S 2N; GLUCOSE,POINT OF CARE 106 MG/DL (70-110)
[2017-08-07 19:32] LABS: GLUCOMETER DEV NAME(LOC) 5N 2S; GLUCOSE,POINT OF CARE 145 MG/DL (70-110)
[2017-08-08 00:31] VITALS: BP 94/54
[2017-08-08] MEDS: ALBUTEROL SULFATE 2.5 MG/0.5 ML NEB SOLUTION NEB SCH ×4 (02:09→19:27)
[2017-08-08] MEDS: IPRATROPIUM BROMIDE 0.5 MG/2.5 ML NEB SOLUTION NEB SCH ×4 (02:09→19:27)
[2017-08-08 02:22] LABS: GLUCOMETER DEV NAME(LOC) 5S 2N; GLUCOSE,POINT OF CARE 116 MG/DL (70-110)
[2017-08-08 06:09] VITALS: BP 93/57
[2017-08-08 07:28] LABS: GLUCOMETER DEV NAME(LOC) 5S 2N; GLUCOSE,POINT OF CARE 93 MG/DL (70-110)
[2017-08-08 07:55] VITALS: BP 97/63
[2017-08-08 08:01] LABS: % IRON SATURATION 8.8 % (22-44)
[2017-08-08 08:02] LABS: CALCIUM, TOTAL 8.7 mg/dL (8.8-10.5); CREATININE 1.29 mg/dL (0.60-1.30); MAGNESIUM 2.1 mg/dL (1.80-2.40); PHOSPHORUS 4.2 mg/dL (2.5-4.9); POTASSIUM 3.7 mmol/L (3.5-5.1); VANCOMYCIN,RANDOM 15.3 mcg/mL (25.0-50.0)
[2017-08-08] MEDS: CefTRIAXone SODIUM 1 GM in DEXTROSE 5%-WATER 10 ML IV SCH ×2 (08:34→18:11)
[2017-08-08] MEDS: VANCOMYCIN HCL 1 GM/D5% WATER 200 ML IV SCH ×2 (08:35→18:12)
[2017-08-08] MEDS: PANTOPRAZOLE SODIUM 40 MG/VIAL IVP SCH (08:36)
[2017-08-08] MEDS: VITAMIN B COMP/VIT C/FOLIC ACID CAPSULE PO SCH (08:36)
[2017-08-08] MEDS: CHOLECALCIFEROL (VIT D3) 1,000 UNITS TABLET PO SCH (08:37)
[2017-08-08] MEDS: HEPARIN SODIUM,PORCINE 5,000 UNITS/ML VIAL SQ SCH ×2 (09:00→21:38)
[2017-08-08] MEDS: FUROSEMIDE 20 MG/2 ML VIAL IVP SCH ×2 (09:00→21:37)
[2017-08-08] MEDS: METOPROLOL TARTRATE 25 MG TABLET PO SCH ×3 (09:00→21:37)
[2017-08-08 09:02] LABS: BASOPHILS % (AUTO) 0.1 % (0.0-2.0); EOSINOPHILS % (AUTO) 0.8 % (1.0-6.0); HEMATOCRIT 28.4 % (36-46); HEMOGLOBIN 9.2 g/dL (12.0-16.0); LYMPHOCYTES # (AUTO) 0.4 K/uL (1.0-4.8); LYMPHOCYTES % (AUTO) 5.6 % (22.0-44.0); MEAN CORPUSCULAR HEMOGLOBIN 28.2 pg (26.0-34.0); MEAN CORPUSCULAR HGB CONC 32.4 G/dL (31.0-37.0); MEAN CORPUSCULAR VOLUME 87 fL (80-100); MONOCYTES # (AUTO) 0.4 K/uL (0.1-1.0); MONOCYTES % (AUTO) 4.9 % (2.0-9.0); NEUTROPHILS # (AUTO) 6.8 K/uL (1.8-7.7); PLATELET COUNT (AUTO) 163 K/uL (150-450); RED BLOOD CELL COUNT(AUTO) 3.26 MIL/uL (4.00-5.20); RED CELL DISTRIBUTION WIDTH 17.7 % (11.5-14.5)
[2017-08-08 09:03] LABS: NEUTROPHILS % (AUTO) 88.6 % (40.0-70.0)
[2017-08-08] MEDS ORDERED: SODIUM CHLORIDE 0.9% 500 ML IV ONE (10:50)
[2017-08-08 11:43] VITALS: BP 106/61
[2017-08-08 15:41] VITALS: BP 99/58
[2017-08-08] MEDS: RIVAROXABAN 15 MG TABLET PO SCH (18:22)
[2017-08-08 19:48] LABS: GLUCOMETER DEV NAME(LOC) 5N 2S; GLUCOSE,POINT OF CARE 120 MG/DL (70-110)
[2017-08-08 19:48] LABS: GLUCOMETER DEV NAME(LOC) 5N 2S; GLUCOSE,POINT OF CARE 118 MG/DL (70-110)
[2017-08-08 20:14] VITALS: BP 100/53
[2017-08-08] MEDS: INSULIN LISPRO 100 UNITS/ML SQ PRN (21:37)
[2017-08-08] MEDS: SOD FERRIC GLUC COMPLX/SUCROSE 125 MG in SODIUM CHLORIDE 0.9% 100 ML IV SCH (21:38)
[2017-08-09] VITALS (7 sets, daily range): BP systolic 95–113; BP diastolic 53–61
[2017-08-09 00:03] LABS: GLUCOMETER DEV NAME(LOC) 5N 2S; GLUCOSE,POINT OF CARE 145 MG/DL (70-110)
[2017-08-09] MEDS: IPRATROPIUM BROMIDE 0.5 MG/2.5 ML NEB SOLUTION NEB SCH ×4 (02:25→20:20)
[2017-08-09] MEDS: ALBUTEROL SULFATE 2.5 MG/0.5 ML NEB SOLUTION NEB SCH ×4 (02:25→20:20)
[2017-08-09 06:08] LABS: BASOPHILS % (AUTO) 0.3 % (0.0-2.0); EOSINOPHILS % (AUTO) 0.8 % (1.0-6.0); HEMOGLOBIN 9.2 g/dL (12.0-16.0); LYMPHOCYTES # (AUTO) 0.6 K/uL (1.0-4.8); LYMPHOCYTES % (AUTO) 8.5 % (22.0-44.0); MEAN CORPUSCULAR HEMOGLOBIN 28.3 pg (26.0-34.0); MEAN CORPUSCULAR HGB CONC 32.8 G/dL (31.0-37.0); MEAN CORPUSCULAR VOLUME 86 fL (80-100); MONOCYTES # (AUTO) 0.5 K/uL (0.1-1.0); MONOCYTES % (AUTO) 6.9 % (2.0-9.0); NEUTROPHILS # (AUTO) 5.5 K/uL (1.8-7.7); NEUTROPHILS % (AUTO) 83.5 % (40.0-70.0); PLATELET COUNT (AUTO) 178 K/uL (150-450); RED BLOOD CELL COUNT(AUTO) 3.24 MIL/uL (4.00-5.20); RED CELL DISTRIBUTION WIDTH 17.6 % (11.5-14.5)
[2017-08-09 06:18] LABS: CALCIUM, TOTAL 8.6 mg/dL (8.8-10.5); CREATININE 1.13 mg/dL (0.60-1.30); POTASSIUM 3.7 mmol/L (3.5-5.1)
[2017-08-09] MEDS: VANCOMYCIN HCL 1 GM/D5% WATER 200 ML IV SCH (08:31)
[2017-08-09] MEDS: SOD FERRIC GLUC COMPLX/SUCROSE 125 MG in SODIUM CHLORIDE 0.9% 100 ML IV SCH (08:31)
[2017-08-09] MEDS: CefTRIAXone SODIUM 1 GM in DEXTROSE 5%-WATER 10 ML IV SCH (08:31)
[2017-08-09] MEDS: CHOLECALCIFEROL (VIT D3) 1,000 UNITS TABLET PO SCH (08:32)
[2017-08-09] MEDS: VITAMIN B COMP/VIT C/FOLIC ACID CAPSULE PO SCH (08:32)
[2017-08-09] MEDS: HEPARIN SODIUM,PORCINE 5,000 UNITS/ML VIAL SQ SCH ×2 (08:33→22:37)
[2017-08-09] MEDS: PANTOPRAZOLE SODIUM 40 MG/VIAL IVP SCH (08:34)
[2017-08-09] MEDS: FUROSEMIDE 20 MG/2 ML VIAL IVP SCH ×2 (08:35→22:37)
[2017-08-09] MEDS: METOPROLOL TARTRATE 25 MG TABLET PO SCH ×2 (09:00→21:00)
[2017-08-09 15:07] LABS: GLUCOMETER DEV NAME(LOC) 5S 2N; GLUCOSE,POINT OF CARE 103 MG/DL (70-110)
[2017-08-09 15:07] LABS: GLUCOMETER DEV NAME(LOC) 5S 2N; GLUCOSE,POINT OF CARE 135 MG/DL (70-110)
[2017-08-09] MEDS: DIGOXIN 250 MCG/ML 2 ML AMP IVP SCH ×2 (15:16→21:12)
[2017-08-09] MEDS: CefoTEtan DISOD 1 GM/DEXTROSE 50 ML IV SCH (15:16)
[2017-08-09] MEDS: ACETAMINOPHEN 325 MG TABLET PO PRN (15:20)
[2017-08-09] MEDS: INSULIN LISPRO 100 UNITS/ML SQ PRN (18:44)
[2017-08-09] MEDS: RIVAROXABAN 15 MG TABLET PO SCH (18:45)
[2017-08-09] MEDS: OXYGEN THERAPY IH SCH (20:11)
[2017-08-09] MEDS: AMIODARONE HCL 200 MG TABLET PO SCH (22:37)
[2017-08-10] VITALS (7 sets, daily range): BP systolic 97–113; BP diastolic 53–68
[2017-08-10 01:41] LABS: APPEARANCE,URINE CLEAR (CLEAR); BILIRUBIN,URINE NEGATIVE (NEGATIVE); GLUCOSE, URINE (UA) NEGATIVE (NEGATIVE); KETONES,URINE NEGATIVE (NEGATIVE); LEUKOCYTE ESTERASE ,URINE TRACE (NEGATIVE); NITRATE,URINE NEGATIVE (NEGATIVE); OCCULT BLOOD,URINE NEGATIVE (NEGATIVE); PROTEIN,URINE NEGATIVE (NEGATIVE); UROBILINOGEN,URINE 0.2 mg/dL (<=1.0)
[2017-08-10 01:55] LABS: BACTERIA,URINE None Seen /HPF (None Seen); RBC,URINE None Seen /HPF (0-2); WBC,URINE 0-2 /HPF (0-5)
[2017-08-10] MEDS: IPRATROPIUM BROMIDE 0.5 MG/2.5 ML NEB SOLUTION NEB SCH ×4 (01:59→19:54)
[2017-08-10] MEDS: ALBUTEROL SULFATE 2.5 MG/0.5 ML NEB SOLUTION NEB SCH ×4 (01:59→19:54)
[2017-08-10] MEDS: CefoTEtan DISOD 1 GM/DEXTROSE 50 ML IV SCH ×2 (02:23→14:43)
[2017-08-10] MEDS: DIGOXIN 250 MCG/ML 2 ML AMP IVP SCH ×2 (02:24→08:38)
[2017-08-10 03:27] LABS: GLUCOMETER DEV NAME(LOC) 5N 2S; GLUCOSE,POINT OF CARE 166 MG/DL (70-110)
[2017-08-10 03:27] LABS: GLUCOMETER DEV NAME(LOC) 5N 2S; GLUCOSE,POINT OF CARE 119 MG/DL (70-110)
[2017-08-10 06:52] LABS: CALCIUM, TOTAL 9.1 mg/dL (8.8-10.5); CREATININE 1.28 mg/dL (0.60-1.30); POTASSIUM 4.8 mmol/L (3.5-5.1)
[2017-08-10] MEDS: OXYGEN THERAPY IH SCH ×2 (07:59→19:54)
[2017-08-10] MEDS: FUROSEMIDE 20 MG/2 ML VIAL IVP SCH (08:34)
[2017-08-10] MEDS: HEPARIN SODIUM,PORCINE 5,000 UNITS/ML VIAL SQ SCH ×2 (08:36→21:00)
[2017-08-10] MEDS: CHOLECALCIFEROL (VIT D3) 1,000 UNITS TABLET PO SCH (08:37)
[2017-08-10] MEDS: VITAMIN B COMP/VIT C/FOLIC ACID CAPSULE PO SCH (08:37)
[2017-08-10] MEDS: VANCOMYCIN HCL 1.25 GM in DEXTROSE 5%-WATER 250 ML IV SCH (08:39)
[2017-08-10] MEDS: METOPROLOL TARTRATE 25 MG TABLET PO SCH ×2 (08:40→21:00)
[2017-08-10] MEDS: AMIODARONE HCL 200 MG TABLET PO SCH ×2 (08:40→21:00)
[2017-08-10] MEDS: PANTOPRAZOLE SODIUM 40 MG/VIAL IVP SCH (08:40)
[2017-08-10] MEDS: EPOETIN ALFA 10,000 UNITS/ML VIAL SQ SCH (08:41)
[2017-08-10] MEDS ORDERED: DIGOXIN 125 MCG TABLET PO SCH (09:00)
[2017-08-10] MEDS: SOD FERRIC GLUC COMPLX/SUCROSE 125 MG in SODIUM CHLORIDE 0.9% 100 ML IV SCH (12:27)
[2017-08-10 14:03] LABS: GLUCOMETER DEV NAME(LOC) 5N 2S; GLUCOSE,POINT OF CARE 112 MG/DL (70-110)
[2017-08-10 14:13] LABS: GLUCOMETER DEV NAME(LOC) 5S 2N; GLUCOSE,POINT OF CARE 130 MG/DL (70-110)
[2017-08-10] MEDS: RIVAROXABAN 15 MG TABLET PO SCH (19:00)
[2017-08-10] MEDS: PENICILLIN G POTASSIUM 3 MILUNITS in DEXTROSE 5%-WATER 50 ML IV SCH (20:47)
[2017-08-11 00:09] VITALS: BP 102/41
[2017-08-11] MEDS: PENICILLIN G POTASSIUM 3 MILUNITS in DEXTROSE 5%-WATER 50 ML IV SCH ×7 (00:20→23:07)
[2017-08-11 01:48] LABS: GLUCOMETER DEV NAME(LOC) 5S 2N; GLUCOSE,POINT OF CARE 107 MG/DL (70-110)
[2017-08-11] MEDS: ALBUTEROL SULFATE 2.5 MG/0.5 ML NEB SOLUTION NEB SCH ×4 (01:50→19:39)
[2017-08-11] MEDS: IPRATROPIUM BROMIDE 0.5 MG/2.5 ML NEB SOLUTION NEB SCH ×4 (01:50→19:39)
[2017-08-11 04:17] VITALS: BP 97/57
[2017-08-11 07:01] LABS: BASOPHILS % (AUTO) 0.4 % (0.0-2.0); EOSINOPHILS % (AUTO) 1.1 % (1.0-6.0); HEMATOCRIT 28.9 % (36-46); HEMOGLOBIN 9.6 g/dL (12.0-16.0); LYMPHOCYTES # (AUTO) 0.7 K/uL (1.0-4.8); LYMPHOCYTES % (AUTO) 12.8 % (22.0-44.0); MEAN CORPUSCULAR HEMOGLOBIN 28.5 pg (26.0-34.0); MEAN CORPUSCULAR HGB CONC 33.1 G/dL (31.0-37.0); MEAN CORPUSCULAR VOLUME 86 fL (80-100); MONOCYTES # (AUTO) 0.4 K/uL (0.1-1.0); MONOCYTES % (AUTO) 7.8 % (2.0-9.0); NEUTROPHILS # (AUTO) 4.4 K/uL (1.8-7.7); NEUTROPHILS % (AUTO) 77.9 % (40.0-70.0); PLATELET COUNT (AUTO) 212 K/uL (150-450); RED BLOOD CELL COUNT(AUTO) 3.35 MIL/uL (4.00-5.20)
[2017-08-11 07:03] LABS: GLUCOMETER DEV NAME(LOC) 5S 2N; GLUCOSE,POINT OF CARE 98 MG/DL (70-110)
[2017-08-11 07:04] VITALS: BP 104/62
[2017-08-11 07:24] LABS: CALCIUM, TOTAL 8.8 mg/dL (8.8-10.5); CREATININE 1.19 mg/dL (0.60-1.30); MAGNESIUM 2.1 mg/dL (1.80-2.40); PHOSPHORUS 3.7 mg/dL (2.5-4.9); POTASSIUM 4.6 mmol/L (3.5-5.1)
[2017-08-11] MEDS: PANTOPRAZOLE SODIUM 40 MG/VIAL IVP SCH (08:33)
[2017-08-11] MEDS: VANCOMYCIN HCL 1.25 GM in DEXTROSE 5%-WATER 250 ML IV SCH (08:33)
[2017-08-11] MEDS: VITAMIN B COMP/VIT C/FOLIC ACID CAPSULE PO SCH (08:34)
[2017-08-11] MEDS: CHOLECALCIFEROL (VIT D3) 1,000 UNITS TABLET PO SCH (08:34)
[2017-08-11] MEDS: HEPARIN SODIUM,PORCINE 5,000 UNITS/ML VIAL SQ SCH ×2 (08:35→20:55)
[2017-08-11] MEDS: AMIODARONE HCL 200 MG TABLET PO SCH ×2 (08:49→20:55)
[2017-08-11] MEDS: METOPROLOL TARTRATE 25 MG TABLET PO SCH ×2 (08:50→21:00)
[2017-08-11] MEDS ORDERED: SODIUM CHLORIDE 0.9% 100 ML ONE (08:57)
[2017-08-11] MEDS: OXYGEN THERAPY IH SCH ×2 (09:37→20:00)
[2017-08-11] MEDS: SOD FERRIC GLUC COMPLX/SUCROSE 125 MG in SODIUM CHLORIDE 0.9% 100 ML IV SCH (09:37)
[2017-08-11 11:22] VITALS: BP 123/66
[2017-08-11] MEDS: ACETAMINOPHEN 325 MG TABLET PO PRN (11:33)
[2017-08-11] MEDS: INSULIN LISPRO 100 UNITS/ML SQ PRN ×2 (12:20→21:02)
[2017-08-11 13:38] LABS: GLUCOMETER DEV NAME(LOC) 5N 2S; GLUCOSE,POINT OF CARE 108 MG/DL (70-110)
[2017-08-11 14:23] LABS: GLUCOMETER DEV NAME(LOC) 5S 2N; GLUCOSE,POINT OF CARE 128 MG/DL (70-110)
[2017-08-11 15:38] VITALS: BP 105/71
[2017-08-11] MEDS: RIVAROXABAN 15 MG TABLET PO SCH (17:40)
[2017-08-11 20:55] VITALS: BP 117/50
[2017-08-12 00:23] VITALS: BP 110/60
[2017-08-12] MEDS: IPRATROPIUM BROMIDE 0.5 MG/2.5 ML NEB SOLUTION NEB SCH ×4 (02:42→13:42)
[2017-08-12] MEDS: ALBUTEROL SULFATE 2.5 MG/0.5 ML NEB SOLUTION NEB SCH ×4 (02:42→13:42)
[2017-08-12 03:04] VITALS: BP 110/49
[2017-08-12] MEDS: PENICILLIN G POTASSIUM 3 MILUNITS in DEXTROSE 5%-WATER 50 ML IV SCH ×3 (03:07→12:17)
[2017-08-12 07:19] LABS: CALCIUM, TOTAL 8.8 mg/dL (8.8-10.5); CREATININE 1.09 mg/dL (0.60-1.30); POTASSIUM 4.5 mmol/L (3.5-5.1); VANCOMYCIN,RANDOM 26.2 mcg/mL (25.0-50.0)
[2017-08-12 07:21] VITALS: BP 113/54
[2017-08-12] MEDS: OXYGEN THERAPY IH SCH (08:00)
[2017-08-12] MEDS ORDERED: VANCOMYCIN HCL 1 GM/D5% WATER 200 ML IV SCH (08:00)
[2017-08-12] MEDS: SOD FERRIC GLUC COMPLX/SUCROSE 125 MG in SODIUM CHLORIDE 0.9% 100 ML IV SCH (08:41)
[2017-08-12] MEDS ORDERED: DIGOXIN 125 MCG TABLET PO SCH (09:00)
[2017-08-12] MEDS: VITAMIN B COMP/VIT C/FOLIC ACID CAPSULE PO SCH (09:12)
[2017-08-12] MEDS: PANTOPRAZOLE SODIUM 40 MG/VIAL IVP SCH (09:12)
[2017-08-12] MEDS: METOPROLOL TARTRATE 25 MG TABLET PO SCH (09:12)
[2017-08-12] MEDS: CHOLECALCIFEROL (VIT D3) 1,000 UNITS TABLET PO SCH (09:12)
[2017-08-12] MEDS: AMIODARONE HCL 200 MG TABLET PO SCH (09:12)
[2017-08-12] MEDS: HEPARIN SODIUM,PORCINE 5,000 UNITS/ML VIAL SQ SCH (09:13)
[2017-08-12] MEDS: EPOETIN ALFA 10,000 UNITS/ML VIAL SQ SCH (09:13)
[2017-08-12 10:57] LABS: GLUCOMETER DEV NAME(LOC) 5N 1P; GLUCOSE,POINT OF CARE 103 MG/DL (70-110)
[2017-08-12 11:01] VITALS: BP 106/55
[2017-08-12 11:33] LABS: GLUCOMETER DEV NAME(LOC) 5S 2N; GLUCOSE,POINT OF CARE 103 MG/DL (70-110)
[2017-08-12 11:38] LABS: GLUCOMETER DEV NAME(LOC) 5S 2N; GLUCOSE,POINT OF CARE 154 MG/DL (70-110)
[2017-08-12 15:17] LABS: GLUCOMETER DEV NAME(LOC) 5N 2S; GLUCOSE,POINT OF CARE 119 MG/DL (70-110)
[2017-08-12 15:47] VITALS: BP_SYST 104; BP_SYST 99; BP_DIAS 54; BP_DIAS 76
[2017-08-12] MEDS ORDERED: DOXYCYCLINE 100 MG CAPSULE PO SCH (21:00)
[2017-08-13 07:27] LABS: GLUCOMETER DEV NAME(LOC) 5N 1P; GLUCOSE,POINT OF CARE 105 MG/DL (70-110)
== END 2017-08-12 18:25 | DRG 871 ==
LOC: EMS 23:21 → 5N 08-06 01:30
PROVIDERS: ADMIT Internal Medicine Geriatric Medicine; ATTEND Internal Medicine Geriatric Medicine
DX: A41.9 Sepsis, unspecified organism (principal); I50.33 Acute on chronic diastolic (congestive) heart failure; N17.9 Acute kidney failure, unspecified; J96.11 Chronic respiratory failure with hypoxia; J18.9 Pneumonia, unspecified organism; E87.2 Acidosis; E11.22 Type 2 diabetes mellitus with diabetic chronic kidney disease; I27.21 Secondary pulmonary arterial hypertension; I13.0 Hypertensive heart and chronic kidney disease with heart failure and stage 1 through stage 4 chronic kidney disease, or unspecified chronic kidney disease; M86.9 Osteomyelitis, unspecified; J47.0 Bronchiectasis with acute lower respiratory infection; N39.0 Urinary tract infection, site not specified; L03.116 Cellulitis of left lower limb; G70.00 Myasthenia gravis without (acute) exacerbation; I48.0 Paroxysmal atrial fibrillation; Z87.440 Personal history of urinary (tract) infections; K21.9 Gastro-esophageal reflux disease without esophagitis; I87.2 Venous insufficiency (chronic) (peripheral); N18.9 Chronic kidney disease, unspecified; F03.90 Unspecified dementia, unspecified severity, without behavioral disturbance, psychotic disturbance, mood disturbance, and anxiety; Z90.710 Acquired absence of both cervix and uterus; B95.2 Enterococcus as the cause of diseases classified elsewhere; B96.20 Unspecified Escherichia coli [E. coli] as the cause of diseases classified elsewhere; B96.89 Other specified bacterial agents as the cause of diseases classified elsewhere; D50.9 Iron deficiency anemia, unspecified; E55.9 Vitamin D deficiency, unspecified; E78.5 Hyperlipidemia, unspecified; I87.8 Other specified disorders of veins; J84.10 Pulmonary fibrosis, unspecified; R62.7 Adult failure to thrive; Z79.01 Long term (current) use of anticoagulants; Z98.84 Bariatric surgery status
CPT/HCPCS: 71250; 82306; 82607; 82746; 82805; 82948; 82962; 83036; 83540; 83550; 83605; 83615; 83735; 84100; 84145; 84439; 84443; 86850; 86900; 86901; 87040; 87070; 87081; 87086; 87106; 87147; 87205; 92610; 93005; 93306; 94640; 96360; 96361; 97116; 97162; 97166; 97530; 97535; 99291; C9113; J0696; J0885; J1160; J1644; J1940; J2540; J2543; J2916; J3370; J3490; J7030; J7040; J7050; J7060

== ENCOUNTER 2019-04-25 03:35 | Inpatient (IN) | payer MEDICARE, OTHER ==
[~2019-04-25] VITALS: Ht 160 cm; Wt 84.0 kg
[~2019-04-25 03:35] MED LIST changes: +APIX5TAB NG; +ASCO500 NG; +ASPI-728 PO; -AUD NEB; -BISA10S PR; +BISA10SU11 PR; +BUME1TAB34 PO; -DILT-39 PO; +DSS100 PO; +ERGO2000 PO; +FAMO20 PO; +FERR324T4 NG; -FURO20 PO; +GABA-529 PO; -HYDR-309 PO; +INSLAN SQ; -INSU100V SQ; -IPRNEB IH; -LEVO250 PO; +LEVO75 NG; -METO25 PO; +MOM30 NG; -MOM30 PO; -MUPI1OIN4 NS; -NYST30CR9 TP; -ONDA4 PO; -PANT40TA25 PO; -PRED20 PO; +QUET25TA PO; -RIVA15T PO; -SERT100T12 PO; +THIA100T67 PO; -ZOLP5 PO
[2019-04-25] MEDS ORDERED: 0.9% SODIUM CHLORIDE 10 ML SYRINGE IVP PRN ×2 (03:45→07:15)
[2019-04-25] MEDS ORDERED: VANCOMYCIN HCL 1 GM/D5% WATER 200 ML IV ONE (03:45)
[2019-04-25] MEDS ORDERED: PIPERACILLIN/TAZO 3.375 GM/D5W 50 ML IV ONE (03:45)
[2019-04-25] MEDS ORDERED: ACETAMINOPHEN 1000 MG/ISO-OSM 100 ML IV ONE (03:45)
[2019-04-25 04:38] LABS: BASOPHILS % (AUTO) 0.4 % (0.0-2.0); EOSINOPHILS % (AUTO) 0 % (1.0-6.0); HEMATOCRIT 31.4 % (36-46); HEMOGLOBIN 9.9 g/dL (12.0-16.0); LYMPHOCYTES # (AUTO) 0.3 K/uL (1.0-4.8); LYMPHOCYTES % (AUTO) 2.9 % (22.0-44.0); MEAN CORPUSCULAR HEMOGLOBIN 28.1 pg (26.0-34.0); MEAN CORPUSCULAR HGB CONC 31.4 G/dL (31.0-37.0); MEAN CORPUSCULAR VOLUME 90 fL (80-100); MONOCYTES # (AUTO) 0.5 K/uL (0.1-1.0); MONOCYTES % (AUTO) 4.6 % (2.0-9.0); NEUTROPHILS # (AUTO) 9.6 K/uL (1.8-7.7); NEUTROPHILS % (AUTO) 92.1 % (40.0-70.0); PLATELET COUNT (AUTO) 172 K/uL (150-450); RED BLOOD CELL COUNT(AUTO) 3.51 MIL/uL (4.00-5.20); RED CELL DISTRIBUTION WIDTH 16.9 % (11.5-14.5)
[2019-04-25 04:48] LABS: INR 1.1 (0.9-1.1); PROTHROMBIN TIME 11.1 SEC (9.4-11.6)
[2019-04-25 04:49] LABS: ANION GAP 13 mmol/L (8-16); CALCIUM, TOTAL 9.6 mg/dL (8.8-10.5); CARBON DIOXIDE 23 mmol/L (22-29); CHLORIDE 108 mmol/L (98-107); CREATININE 0.85 mg/dL (0.60-1.30); GLUCOSE,RANDOM 122 mg/dL (70-110); POTASSIUM 3.6 mmol/L (3.5-5.1); SODIUM SERUM 144 mmol/L (136-145); UREA NITROGEN, BLOOD 18 mg/dL (7-18)
[2019-04-25 04:51] LABS: GLOMERULAR FILTR. RATE CALC > 60 mL/min (>60)
[2019-04-25 04:55] LABS: ALANINE AMINOTRANSFERASE 13 U/L (12-78); ALBUMIN 2.6 g/dL (3.4-5.0); ALKALINE PHOSPHATASE 74 U/L (46-116); ASPARTATE AMINOTRANSFERASE 18 U/L (15-37); B-TYPE NATRIURETIC PEPTIDE 682 pg/mL (0-100); BILIRUBIN,TOTAL 0.7 mg/dL (0.1-1.0); TOTAL PROTEIN, SERUM 7.2 g/dL (6.4-8.2)
[2019-04-25 04:56] LABS: LACTIC ACID 1.1 mmol/L (0.4-2.0)
[2019-04-25] MEDS ORDERED: LIDOCAINE 1% 10 ML VIAL ONE (05:03)
[2019-04-25] MEDS ORDERED: POVIDONE-IODINE 10% 15 ML SOLUTION UD ONE (05:09)
[2019-04-25] MEDS ORDERED: LIDOCAINE 1%/EPI 1:200,000/PF 10 ML VIAL ONE (05:09)
[2019-04-25 05:22] LABS: INFLUENZA TYPE A NEGATIVE FOR TYPE A (NEGATIVE); INFLUENZA TYPE B NEGATIVE FOR TYPE B (NEGATIVE)
[2019-04-25] MEDS ORDERED: SODIUM CHLORIDE 0.9% 1,000 ML IV ONE ×2 (06:30→16:15)
[2019-04-25 07:15] LABS: APPEARANCE,URINE TURBID (CLEAR); GLUCOSE, URINE (UA) NEGATIVE (NEGATIVE); KETONES,URINE TRACE mg/dL (NEGATIVE); LEUKOCYTE ESTERASE ,URINE SMALL (NEGATIVE); NITRATE,URINE NEGATIVE (NEGATIVE); OCCULT BLOOD,URINE LARGE (NEGATIVE); PH,URINE 5.5 (5.0-8.0); PROTEIN,URINE POS 1+ (NEGATIVE)
[2019-04-25] MEDS ORDERED: ONDANSETRON HCL 4 MG/2 ML VIAL IVP PRN (07:15)
[2019-04-25] MEDS ORDERED: ACETAMINOPHEN 325 MG TABLET PO PRN (07:15)
[2019-04-25 07:22] LABS: BILIRUBIN,URINE PRELIM. POSITIVE (NEGATIVE)
[2019-04-25 07:24] LABS: BACTERIA,URINE Many /HPF (None Seen); SQUAMOUS EPITHELIAL CELL,UR Many /LPF (None Seen)
[2019-04-25] MEDS ORDERED: MORPHINE SULFATE 2 MG/ML SYRINGE IVP PRN (11:00)
[2019-04-25] MEDS ORDERED: 0.9% SODIUM CHLORIDE 10 ML SYRINGE IVP ONE (12:00)
[2019-04-25] MEDS ORDERED: ATROPINE SULFATE 0.1 MG/ML 10 ML SYRINGE IVP ONE (12:00)
[2019-04-25] MEDS ORDERED: EPINEPHrine 1:10,000 [1 MG/10 ML] SYRINGE IVP ONE (12:00)
[2019-04-25] MEDS: MORPHINE SULFATE 2 MG/ML SYRINGE IVP PRN (13:24)
[2019-04-25] MEDS ORDERED: METO25 NG (16:04)
[2019-04-25] MEDS ORDERED: DIGOXIN 250 MCG/ML 2 ML AMP IVP ONE ×2 (20:45→21:00)
[2019-04-25] MEDS ORDERED: AMIODARONE HCL 360 MG in DEXTROSE 5%-WATER 242.8 ML IV ONE (23:15)
[2019-04-25] MEDS ORDERED: AMIODARONE HCL 150 MG in DEXTROSE 5%-WATER 97 ML IV ONE (23:15)
[2019-04-26] VITALS: BP 93/63
[2019-04-26] MEDS ORDERED: VANCOMYCIN HCL 1 GM/D5% WATER 200 ML IV SCH (00:30)
[2019-04-26] MEDS ORDERED: BISACODYL 10 MG RECTAL RECTAL SUPPOSITORY PR PRN ×2 (00:30)
[2019-04-26] MEDS ORDERED: ALBUTEROL SULFATE 2.5 MG/0.5 ML NEB SOLUTION NEB PRN (00:30)
[2019-04-26] MEDS ORDERED: ACETAMINOPHEN 325 MG TABLET PO PRN (00:30)
[2019-04-26] MEDS ORDERED: ZOLPIDEM TARTRATE 5 MG TABLET PO PRN (00:30)
[2019-04-26] MEDS ORDERED: IPRATROPIUM BROMIDE 0.5 MG/2.5 ML NEB SOLUTION NEB PRN (00:30)
[2019-04-26] MEDS ORDERED: MAGNESIUM HYDROXIDE SUSPENSION 30 ML UDCUP NG PRN (00:30)
[2019-04-26] MEDS ORDERED: MAGNESIUM HYDROXIDE SUSPENSION 30 ML UDCUP PO PRN (00:30)
[2019-04-26] MEDS ORDERED: ONDANSETRON HCL 4 MG/2 ML VIAL IVP PRN (00:30)
[2019-04-26] MEDS ORDERED: MORPHINE SULFATE 2 MG/ML SYRINGE IVP PRN (00:30)
[2019-04-26 00:50] LABS: GLUCOSE,POINT OF CARE 75 MG/DL (70-110)
[2019-04-26] MEDS ORDERED: SODIUM CHLORIDE 0.9% 250 ML IV ONE (00:56)
[2019-04-26] MEDS ORDERED: VANCOMYCIN HCL 1.25 GM in DEXTROSE 5%-WATER 250 ML IV ONE (01:00)
[2019-04-26] MEDS: PIPERACILLIN/TAZO 3.375 GM/D5W 50 ML IV SCH ×5 (01:12→23:46)
[2019-04-26] MEDS: DEXTROSE 5%-0.45% SODIUM CHL 1,000 ML IV SCH ×2 (01:43→14:30)
[2019-04-26 04:00] VITALS: BP 110/86
[2019-04-26] MEDS: MORPHINE SULFATE 2 MG/ML SYRINGE IVP PRN (04:44)
[2019-04-26] MEDS: LEVOTHYROXINE SODIUM 75 MCG TABLET NG SCH (05:01)
[2019-04-26] MEDS ORDERED: AMIODARONE HCL 540 MG in DEXTROSE 5%-WATER 239.2 ML IV ONE (05:15)
[2019-04-26 06:43] LABS: BASOPHILS % (AUTO) 0.1 % (0.0-2.0); EOSINOPHILS % (AUTO) 0 % (1.0-6.0); HEMATOCRIT 28.8 % (36-46); HEMOGLOBIN 9.1 g/dL (12.0-16.0); LYMPHOCYTES # (AUTO) 0.9 K/uL (1.0-4.8); LYMPHOCYTES % (AUTO) 4.5 % (22.0-44.0); MEAN CORPUSCULAR HEMOGLOBIN 28.5 pg (26.0-34.0); MEAN CORPUSCULAR HGB CONC 31.4 G/dL (31.0-37.0); MEAN CORPUSCULAR VOLUME 91 fL (80-100); MONOCYTES # (AUTO) 1.2 K/uL (0.1-1.0); MONOCYTES % (AUTO) 5.9 % (2.0-9.0); NEUTROPHILS # (AUTO) 18.2 K/uL (1.8-7.7); PLATELET COUNT (AUTO) 170 K/uL (150-450); RED BLOOD CELL COUNT(AUTO) 3.18 MIL/uL (4.00-5.20); RED CELL DISTRIBUTION WIDTH 17.3 % (11.5-14.5)
[2019-04-26 06:53] LABS: NEUTROPHILS % (AUTO) 89.5 % (40.0-70.0)
[2019-04-26 07:24] LABS: ALBUMIN 2.4 g/dL (3.4-5.0); BILIRUBIN,TOTAL 0.8 mg/dL (0.1-1.0); CALCIUM, TOTAL 8.6 mg/dL (8.8-10.5); CREATININE 1.04 mg/dL (0.60-1.30); POTASSIUM 3.7 mmol/L (3.5-5.1); TOTAL PROTEIN, SERUM 6.9 g/dL (6.4-8.2)
[2019-04-26 08:00] VITALS: BP 126/66
[2019-04-26] MEDS: DOCUSATE SODIUM 100 MG CAPSULE PO SCH ×2 (08:34→20:26)
[2019-04-26] MEDS: METOPROLOL TARTRATE 25 MG TABLET NG SCH ×3 (08:34→20:26)
[2019-04-26] MEDS: ASCORBIC ACID 500 MG TABLET NG SCH (08:34)
[2019-04-26] MEDS: VANCOMYCIN HCL 750 MG in DEXTROSE 5%-WATER 250 ML IV SCH ×2 (08:37→19:15)
[2019-04-26] MEDS ORDERED: DEXTROSE 50%-WATER 25 GM/50 ML SYRINGE IVP PRN (11:15)
[2019-04-26] MEDS: INSULIN LISPRO 100 UNITS/ML SQ PRN ×2 (11:29→23:47)
[2019-04-26 12:00] VITALS: BP 99/66
[2019-04-26] MEDS ORDERED: DIGOXIN 250 MCG/ML 2 ML AMP IVP ONE (13:15)
[2019-04-26 14:51] LABS: GLUCOSE,POINT OF CARE 172 MG/DL (70-110)
[2019-04-26 16:00] VITALS: BP 127/62
[2019-04-26 20:00] VITALS: BP 114/68
[2019-04-26] MEDS: HEPARIN SODIUM,PORCINE 5,000 UNITS/ML VIAL SQ SCH (20:25)
[2019-04-26] MEDS: AMIODARONE HCL 750 MG in DEXTROSE 5%-WATER 485 ML IV SCH (23:26)
[2019-04-27] VITALS: BP 103/51
[2019-04-27] MEDS: DEXTROSE 5%-0.45% SODIUM CHL 1,000 ML IV SCH ×2 (03:13→16:29)
[2019-04-27] MEDS ORDERED: SODIUM CHLORIDE 0.9% 250 ML IV ONE (03:48)
[2019-04-27 04:00] VITALS: BP 113/72
[2019-04-27 05:06] LABS: BASOPHILS % (AUTO) 0.1 % (0.0-2.0); EOSINOPHILS % (AUTO) 0 % (1.0-6.0); HEMATOCRIT 30.8 % (36-46); HEMOGLOBIN 9.3 g/dL (12.0-16.0); LYMPHOCYTES # (AUTO) 0.8 K/uL (1.0-4.8); LYMPHOCYTES % (AUTO) 3.7 % (22.0-44.0); MEAN CORPUSCULAR HEMOGLOBIN 27.9 pg (26.0-34.0); MEAN CORPUSCULAR HGB CONC 30.2 G/dL (31.0-37.0); MEAN CORPUSCULAR VOLUME 92 fL (80-100); MONOCYTES % (AUTO) 4.4 % (2.0-9.0); NEUTROPHILS # (AUTO) 19.9 K/uL (1.8-7.7); PLATELET COUNT (AUTO) 131 K/uL (150-450); RED BLOOD CELL COUNT(AUTO) 3.33 MIL/uL (4.00-5.20); RED CELL DISTRIBUTION WIDTH 16.8 % (11.5-14.5)
[2019-04-27 05:11] LABS: NEUTROPHILS % (AUTO) 91.8 % (40.0-70.0)
[2019-04-27] MEDS: INSULIN LISPRO 100 UNITS/ML SQ PRN ×2 (05:20→11:57)
[2019-04-27] MEDS: PIPERACILLIN/TAZO 3.375 GM/D5W 50 ML IV SCH (05:26)
[2019-04-27 05:31] LABS: CALCIUM, TOTAL 8.4 mg/dL (8.8-10.5); CREATININE 1.28 mg/dL (0.60-1.30); DIGOXIN 1.24 ng/mL (0.90-2.00); POTASSIUM 3.8 mmol/L (3.5-5.1); VANCOMYCIN,RANDOM 30.4 mcg/mL (25.0-50.0)
[2019-04-27] MEDS: LEVOTHYROXINE SODIUM 75 MCG TABLET NG SCH (06:30)
[2019-04-27] MEDS: VANCOMYCIN HCL 750 MG in DEXTROSE 5%-WATER 250 ML IV SCH (06:58)
[2019-04-27 07:25] LABS: GLUCOSE,POINT OF CARE 164 MG/DL (70-110)
[2019-04-27 07:25] LABS: GLUCOSE,POINT OF CARE 130 MG/DL (70-110)
[2019-04-27 07:36] LABS: GLUCOSE,POINT OF CARE 139 MG/DL (70-110)
[2019-04-27 08:00] VITALS: BP 107/73
[2019-04-27] MEDS: METOPROLOL TARTRATE 25 MG TABLET NG SCH ×3 (08:07→21:00)
[2019-04-27] MEDS: DOCUSATE SODIUM 100 MG CAPSULE PO SCH ×2 (08:08→21:00)
[2019-04-27] MEDS: ASCORBIC ACID 500 MG TABLET NG SCH (08:08)
[2019-04-27] MEDS: HEPARIN SODIUM,PORCINE 5,000 UNITS/ML VIAL SQ SCH (09:21)
[2019-04-27] MEDS: VANCOMYCIN HCL 500 MG in DEXTROSE 5%-WATER 100 ML IV SCH ×2 (09:21→20:18)
[2019-04-27 09:57] LABS: INR 1.1 (0.9-1.1); PROTHROMBIN TIME 11.3 SEC (9.4-11.6)
[2019-04-27] MEDS ORDERED: *CLINICAL-RX DOSING [ENTER DRUG IN COMMENTS] CLINICAL ONE (10:30)
[2019-04-27] MEDS: CefoTEtan DISOD 2 GM/DEXTROSE 50 ML IV SCH ×2 (11:58→22:57)
[2019-04-27 12:00] VITALS: BP 108/70
[2019-04-27 13:10] LABS: GLUCOSE,POINT OF CARE 177 MG/DL (70-110)
[2019-04-27 16:00] VITALS: BP 136/108
[2019-04-27 17:32] LABS: ABG A-A DIFF O2 165.9 mmHg (10-20.0); ABG BASE EXCESS -8.1 mmol/L (-2.0-3.0); ABG CARBOXYHEMOGLOBIN 0.5 % (0.0-1.5); ABG HCO3 18.1 mmol/L (22.0-26.0); ABG METHEMOGLOBIN 0.3 % (0.0-1.5); ABG OXYGEN CONTENT 14.4 mL/dL (15.0-23.0); ABG OXYGEN SATURATION 99.7 % (95.0-98.0); ABG OXYHEMOGLOBIN 98.9 % (94.0-100.0); ABG PCO2 47 mmHg (35-45); ABG PH 7.235 (7.35-7.450); ABG TOTAL HEMOGLOBIN 9.3 G/dL (12.0-18.0); O2 DEVICE,BLOOD GAS VENTILATOR (ROOM AIR); PO2, ARTERIAL BG 502.4 mmHg (75.0-83.0); SITE, BLOOD GAS LFT RADIAL; SOURCE, BLOOD GAS ARTERIAL; TEMPERATURE, FAHRENHEIT, BG 97.1 FAHREN (96.0-98.6); VT, ABG 400 ml
[2019-04-27 17:33] LABS: PEEP,BG 5 cm H2O
[2019-04-27 19:09] LABS: GLUCOSE,POINT OF CARE 121 MG/DL (70-110)
[2019-04-27 20:00] VITALS: BP 99/57
[2019-04-27] MEDS: AMIODARONE HCL 750 MG in DEXTROSE 5%-WATER 485 ML IV SCH (23:08)
[2019-04-28] VITALS: BP 102/54
[2019-04-28] MEDS ORDERED: SODIUM CHLORIDE 0.9% 250 ML IV ONE (02:11)
[2019-04-28 04:00] VITALS: BP 113/58
[2019-04-28 05:15] LABS: BASOPHILS % (AUTO) 0.4 % (0.0-2.0); EOSINOPHILS % (AUTO) 0.1 % (1.0-6.0); HEMATOCRIT 27.3 % (36-46); HEMOGLOBIN 8.6 g/dL (12.0-16.0); LYMPHOCYTES # (AUTO) 0.5 K/uL (1.0-4.8); LYMPHOCYTES % (AUTO) 4.2 % (22.0-44.0); MEAN CORPUSCULAR HEMOGLOBIN 28.6 pg (26.0-34.0); MEAN CORPUSCULAR HGB CONC 31.5 G/dL (31.0-37.0); MEAN CORPUSCULAR VOLUME 91 fL (80-100); MONOCYTES # (AUTO) 0.5 K/uL (0.1-1.0); MONOCYTES % (AUTO) 4.1 % (2.0-9.0); NEUTROPHILS # (AUTO) 11.3 K/uL (1.8-7.7); PLATELET COUNT (AUTO) 108 K/uL (150-450); RED CELL DISTRIBUTION WIDTH 16.8 % (11.5-14.5)
[2019-04-28 05:17] LABS: NEUTROPHILS % (AUTO) 91.2 % (40.0-70.0)
[2019-04-28 05:21] LABS: CALCIUM, TOTAL 7.7 mg/dL (8.8-10.5); CREATININE 1.89 mg/dL (0.60-1.30); POTASSIUM 3.2 mmol/L (3.5-5.1)
[2019-04-28] MEDS: DEXTROSE 5%-0.45% SODIUM CHL 1,000 ML IV SCH ×2 (06:16→19:40)
[2019-04-28] MEDS: LEVOTHYROXINE SODIUM 75 MCG TABLET NG SCH (06:17)
[2019-04-28 07:00] LABS: GLUCOSE,POINT OF CARE 149 MG/DL (70-110)
[2019-04-28 08:00] VITALS: BP 114/62
[2019-04-28] MEDS: METOPROLOL TARTRATE 25 MG TABLET NG SCH ×3 (08:24→21:00)
[2019-04-28] MEDS: DOCUSATE SODIUM 100 MG CAPSULE PO SCH ×2 (08:25→21:00)
[2019-04-28] MEDS: ASCORBIC ACID 500 MG TABLET NG SCH (08:25)
[2019-04-28] MEDS: POTASSIUM CHL 10 MEQ/WATER 50 ML IV SCH ×2 (08:57→09:50)
[2019-04-28] MEDS: VANCOMYCIN HCL 500 MG in DEXTROSE 5%-WATER 100 ML IV SCH ×2 (08:57→19:54)
[2019-04-28] MEDS ORDERED: IOVERSOL 350 MG/ML 100 ML VIAL ONE (10:37)
[2019-04-28] MEDS ORDERED: SODIUM CHLORIDE 0.9% 100 ML ONE (10:37)
[2019-04-28] MEDS: CefoTEtan DISOD 2 GM/DEXTROSE 50 ML IV SCH ×2 (11:00→15:16)
[2019-04-28 12:00] VITALS: BP 115/64
[2019-04-28 14:18] LABS: GLUCOSE,POINT OF CARE 111 MG/DL (70-110)
[2019-04-28 16:00] VITALS: BP 119/58
[2019-04-28 20:00] VITALS: BP 113/69
[2019-04-28] MEDS: AMIODARONE HCL 750 MG in DEXTROSE 5%-WATER 485 ML IV SCH (23:13)
[2019-04-29] VITALS: BP 113/48
[2019-04-29] MEDS: INSULIN LISPRO 100 UNITS/ML SQ PRN ×2 (00:14→23:37)
[2019-04-29 02:17] LABS: GLUCOSE,POINT OF CARE 109 MG/DL (70-110)
[2019-04-29 04:00] VITALS: BP 121/53
[2019-04-29 04:05] LABS: GLUCOSE,POINT OF CARE 115 MG/DL (70-110)
[2019-04-29] MEDS: LEVOTHYROXINE SODIUM 75 MCG TABLET NG SCH (06:30)
[2019-04-29 06:33] LABS: CALCIUM, TOTAL 8.1 mg/dL (8.8-10.5); CREATININE 1.72 mg/dL (0.60-1.30); VANCOMYCIN,RANDOM 36.5 mcg/mL (25.0-50.0)
[2019-04-29 06:38] LABS: POTASSIUM 2.9 mmol/L (3.5-5.1)
[2019-04-29 08:00] VITALS: BP 128/61
[2019-04-29] MEDS ORDERED: VANCOMYCIN HCL 500 MG in DEXTROSE 5%-WATER 100 ML IV SCH (08:00)
[2019-04-29] MEDS: POTASSIUM CHL 10 MEQ/WATER 50 ML IV SCH ×4 (08:14→11:45)
[2019-04-29] MEDS: METOPROLOL TARTRATE 25 MG TABLET NG SCH ×3 (08:14→20:38)
[2019-04-29] MEDS: ASCORBIC ACID 500 MG TABLET NG SCH (08:15)
[2019-04-29] MEDS: DOCUSATE SODIUM 100 MG CAPSULE PO SCH ×2 (08:15→20:38)
[2019-04-29 08:16] LABS: GLUCOSE,POINT OF CARE 130 MG/DL (70-110)
[2019-04-29] MEDS: DEXTROSE 5%-0.45% SODIUM CHL 1,000 ML IV SCH ×2 (08:38→21:47)
[2019-04-29 12:00] VITALS: BP 128/61
[2019-04-29 16:00] VITALS: BP 92/54
[2019-04-29 19:37] LABS: ABG A-A DIFF O2 67.7 mmHg (10-20.0); ABG BASE EXCESS -6.4 mmol/L (-2.0-3.0); ABG CARBOXYHEMOGLOBIN 0.1 % (0.0-1.5); ABG HCO3 19.3 mmol/L (22.0-26.0); ABG METHEMOGLOBIN 0.3 % (0.0-1.5); ABG OXYGEN CONTENT 13.4 mL/dL (15.0-23.0); ABG OXYGEN SATURATION 98.2 % (95.0-98.0); ABG OXYHEMOGLOBIN 97.8 % (94.0-100.0); ABG PCO2 48 mmHg (35-45); ABG PH 7.251 (7.35-7.450); ABG TOTAL HEMOGLOBIN 9.6 G/dL (12.0-18.0); PO2, ARTERIAL BG 125.8 mmHg (75.0-83.0); SOURCE, BLOOD GAS ARTERIAL; TEMPERATURE, FAHRENHEIT, BG 98.3 FAHREN (96.0-98.6)
[2019-04-29 19:38] LABS: CPAP, BG 5 cm H2O; O2 DEVICE,BLOOD GAS VENTILATOR (ROOM AIR); PEEP,BG 5 cm H2O; PRESSURE SUPPORT, BG 8 cm H2O; SITE, BLOOD GAS RT BRACHIAL; SPONTANEOUS VT, BG 284 ml; VENT MODE, BG CPAP (ROOM AIR)
[2019-04-29 20:00] VITALS: BP 111/47
[2019-04-29] MEDS: IPRATROPIUM BROMIDE 0.5 MG/2.5 ML NEB SOLUTION NEB PRN (20:02)
[2019-04-29] MEDS: ALBUTEROL SULFATE 2.5 MG/0.5 ML NEB SOLUTION NEB PRN (20:02)
[2019-04-29 21:26] LABS: GLUCOSE,POINT OF CARE 128 MG/DL (70-110)
[2019-04-29] MEDS: AMIODARONE HCL 750 MG in DEXTROSE 5%-WATER 485 ML IV SCH (23:09)
[2019-04-30] VITALS: BP 92/62
[2019-04-30] MEDS: ALBUTEROL SULFATE 2.5 MG/0.5 ML NEB SOLUTION NEB PRN (02:16)
[2019-04-30] MEDS: IPRATROPIUM BROMIDE 0.5 MG/2.5 ML NEB SOLUTION NEB PRN (02:16)
[2019-04-30 04:00] VITALS: BP 97/48
[2019-04-30] MEDS: LEVOTHYROXINE SODIUM 75 MCG TABLET NG SCH (05:07)
[2019-04-30 05:23] LABS: GLUCOSE,POINT OF CARE 125 MG/DL (70-110)
[2019-04-30] MEDS: INSULIN LISPRO 100 UNITS/ML SQ PRN (05:26)
[2019-04-30 05:30] LABS: BASOPHILS % (AUTO) 0.1 % (0.0-2.0); EOSINOPHILS % (AUTO) 0.5 % (1.0-6.0); HEMATOCRIT 23.9 % (36-46); HEMOGLOBIN 7.7 g/dL (12.0-16.0); LYMPHOCYTES # (AUTO) 0.6 K/uL (1.0-4.8); LYMPHOCYTES % (AUTO) 7.3 % (22.0-44.0); MEAN CORPUSCULAR HEMOGLOBIN 28.3 pg (26.0-34.0); MEAN CORPUSCULAR HGB CONC 32.5 G/dL (31.0-37.0); MONOCYTES # (AUTO) 0.9 K/uL (0.1-1.0); MONOCYTES % (AUTO) 10.2 % (2.0-9.0); NEUTROPHILS # (AUTO) 7.3 K/uL (1.8-7.7); NEUTROPHILS % (AUTO) 81.9 % (40.0-70.0); PLATELET COUNT (AUTO) 106 K/uL (150-450); RED BLOOD CELL COUNT(AUTO) 2.73 MIL/uL (4.00-5.20); RED CELL DISTRIBUTION WIDTH 16.9 % (11.5-14.5)
[2019-04-30 05:32] LABS: MEAN CORPUSCULAR VOLUME 88 fL (80-100)
[2019-04-30 05:47] LABS: ALBUMIN 1.4 g/dL (3.4-5.0); BILIRUBIN,TOTAL 0.3 mg/dL (0.1-1.0); CALCIUM, TOTAL 7.8 mg/dL (8.8-10.5); CREATININE 1.36 mg/dL (0.60-1.30); POTASSIUM 3.2 mmol/L (3.5-5.1); TOTAL PROTEIN, SERUM 5.3 g/dL (6.4-8.2)
[2019-04-30 08:00] VITALS: BP 107/49
[2019-04-30 08:22] LABS: GLUCOSE,POINT OF CARE 132 MG/DL (70-110)
[2019-04-30 08:22] LABS: GLUCOSE,POINT OF CARE 116 MG/DL (70-110)
[2019-04-30] MEDS: METOPROLOL TARTRATE 25 MG TABLET NG SCH ×3 (09:00→21:00)
[2019-04-30] MEDS: DOCUSATE SODIUM 100 MG CAPSULE PO SCH ×2 (09:00→21:00)
[2019-04-30] MEDS ORDERED: POTASSIUM CHL 10 MEQ/WATER 50 ML IV ONE (10:23)
[2019-04-30] MEDS ORDERED: BARIUM SULFATE 0.1% SUSPENSION 450 ML BOTTLE ONE ×2 (10:26→10:49)
[2019-04-30] MEDS: CefoTEtan DISOD 2 GM/DEXTROSE 50 ML IV SCH ×2 (10:39→21:18)
[2019-04-30 11:28] LABS: ABG A-A DIFF O2 62.2 mmHg (10-20.0); ABG BASE EXCESS -5.3 mmol/L (-2.0-3.0); ABG CARBOXYHEMOGLOBIN 0.7 % (0.0-1.5); ABG HCO3 20.4 mmol/L (22.0-26.0); ABG METHEMOGLOBIN 0.3 % (0.0-1.5); ABG OXYGEN CONTENT 11.6 mL/dL (15.0-23.0); ABG OXYGEN SATURATION 98.8 % (95.0-98.0); ABG OXYHEMOGLOBIN 97.8 % (94.0-100.0); ABG PCO2 39 mmHg (35-45); ABG PH 7.339 (7.35-7.450); ABG TOTAL HEMOGLOBIN 8.2 G/dL (12.0-18.0); O2 DEVICE,BLOOD GAS VENTILATOR (ROOM AIR); PO2, ARTERIAL BG 142.4 mmHg (75.0-83.0); PRESSURE SUPPORT, BG 8 cm H2O; SITE, BLOOD GAS LFT RADIAL; SOURCE, BLOOD GAS ARTERIAL; TEMPERATURE, FAHRENHEIT, BG 98.1 FAHREN (96.0-98.6); VENT MODE, BG CPAP (ROOM AIR)
[2019-04-30 11:29] LABS: CPAP, BG 5 cm H2O
[2019-04-30] MEDS: HYDROCODONE/ACETAMINOPHEN 5-325 MG TABLET PO PRN (11:36)
[2019-04-30] MEDS: DEXTROSE 5%-0.45% SODIUM CHL 1,000 ML IV SCH (11:36)
[2019-04-30 12:00] VITALS: BP 94/55
[2019-04-30 12:07] LABS: GLUCOSE,POINT OF CARE 114 MG/DL (70-110)
[2019-04-30 13:58] LABS: ABG BASE EXCESS -6.2 mmol/L (-2.0-3.0); ABG CARBOXYHEMOGLOBIN 0.7 % (0.0-1.5); ABG HCO3 19.6 mmol/L (22.0-26.0); ABG OXYGEN CONTENT 11.9 mL/dL (15.0-23.0); ABG OXYGEN SATURATION 98.3 % (95.0-98.0); ABG OXYHEMOGLOBIN 97.6 % (94.0-100.0); ABG PCO2 44 mmHg (35-45); ABG PH 7.285 (7.35-7.450); ABG TOTAL HEMOGLOBIN 8.5 G/dL (12.0-18.0); SITE, BLOOD GAS LFT RADIAL; SOURCE, BLOOD GAS ARTERIAL
[2019-04-30 13:59] LABS: O2 DEVICE,BLOOD GAS TRACH COLLAR (ROOM AIR)
[2019-04-30 16:00] VITALS: BP 97/57
[2019-04-30] MEDS: ASCORBIC ACID 500 MG TABLET NG SCH (16:13)
[2019-04-30] MEDS: POTASSIUM CHL 10 MEQ/WATER 50 ML IV SCH ×4 (16:13→18:51)
[2019-04-30 17:47] LABS: GLUCOSE,POINT OF CARE 108 MG/DL (70-110)
[2019-04-30 20:00] VITALS: BP 91/43
[2019-04-30] MEDS: IPRATROPIUM BROMIDE 0.5 MG/2.5 ML NEB SOLUTION NEB SCH (20:13)
[2019-04-30] MEDS: ALBUTEROL SULFATE 2.5 MG/0.5 ML NEB SOLUTION NEB SCH (20:13)
[2019-05-01] VITALS: BP 98/51
[2019-05-01] MEDS: IPRATROPIUM BROMIDE 0.5 MG/2.5 ML NEB SOLUTION NEB SCH ×4 (01:44→19:52)
[2019-05-01] MEDS: ALBUTEROL SULFATE 2.5 MG/0.5 ML NEB SOLUTION NEB SCH ×4 (01:44→19:52)
[2019-05-01] MEDS: DEXTROSE 5%-0.45% SODIUM CHL 1,000 ML IV SCH ×3 (03:22→18:44)
[2019-05-01 04:00] VITALS: BP 96/47
[2019-05-01 05:03] LABS: BASOPHILS % (AUTO) 0.1 % (0.0-2.0); EOSINOPHILS % (AUTO) 1.4 % (1.0-6.0); HEMATOCRIT 24.1 % (36-46); HEMOGLOBIN 7.7 g/dL (12.0-16.0); LYMPHOCYTES # (AUTO) 1.1 K/uL (1.0-4.8); LYMPHOCYTES % (AUTO) 12.9 % (22.0-44.0); MEAN CORPUSCULAR HGB CONC 32.1 G/dL (31.0-37.0); MEAN CORPUSCULAR VOLUME 87 fL (80-100); MONOCYTES % (AUTO) 11.8 % (2.0-9.0); NEUTROPHILS # (AUTO) 6.5 K/uL (1.8-7.7); NEUTROPHILS % (AUTO) 73.8 % (40.0-70.0); PLATELET COUNT (AUTO) 112 K/uL (150-450); RED BLOOD CELL COUNT(AUTO) 2.76 MIL/uL (4.00-5.20); RED CELL DISTRIBUTION WIDTH 16.9 % (11.5-14.5)
[2019-05-01 05:13] LABS: CREATININE 1.39 mg/dL (0.60-1.30); POTASSIUM 4.2 mmol/L (3.5-5.1)
[2019-05-01 05:28] LABS: VANCOMYCIN,RANDOM 26.9 mcg/mL (25.0-50.0)
[2019-05-01] MEDS: LEVOTHYROXINE SODIUM 75 MCG TABLET NG SCH (05:57)
[2019-05-01 06:20] LABS: GLUCOSE,POINT OF CARE 95 MG/DL (70-110)
[2019-05-01 07:57] LABS: ABG A-A DIFF O2 58.7 mmHg (10-20.0); ABG BASE EXCESS -7.8 mmol/L (-2.0-3.0); ABG CARBOXYHEMOGLOBIN 0.7 % (0.0-1.5); ABG HCO3 18.7 mmol/L (22.0-26.0); ABG METHEMOGLOBIN 0.3 % (0.0-1.5); ABG OXYGEN CONTENT 12.5 mL/dL (15.0-23.0); ABG OXYGEN SATURATION 99.1 % (95.0-98.0); ABG OXYHEMOGLOBIN 98.1 % (94.0-100.0); ABG PCO2 32 mmHg (35-45); ABG PH 7.358 (7.35-7.450); ABG TOTAL HEMOGLOBIN 8.8 G/dL (12.0-18.0); O2 DEVICE,BLOOD GAS VENTILATOR (ROOM AIR); PO2, ARTERIAL BG 153.5 mmHg (75.0-83.0); SITE, BLOOD GAS RT BRACHIAL; SOURCE, BLOOD GAS ARTERIAL; TEMPERATURE, FAHRENHEIT, BG 98.6 FAHREN (96.0-98.6)
[2019-05-01 07:58] LABS: PEEP,BG 5 cm H2O; VT, ABG 400 ml
[2019-05-01 08:00] VITALS: BP 100/46
[2019-05-01] MEDS: CefoTEtan DISOD 2 GM/DEXTROSE 50 ML IV SCH ×2 (08:55→21:08)
[2019-05-01] MEDS: DOCUSATE SODIUM 100 MG CAPSULE PO SCH ×2 (09:00→21:00)
[2019-05-01] MEDS: METOPROLOL TARTRATE 25 MG TABLET NG SCH ×3 (09:00→21:00)
[2019-05-01] MEDS: ASCORBIC ACID 500 MG TABLET NG SCH (09:00)
[2019-05-01 12:00] VITALS: BP 100/55
[2019-05-01 14:09] LABS: GLUCOSE,POINT OF CARE 114 MG/DL (70-110)
[2019-05-01 16:00] VITALS: BP 106/65
[2019-05-01 19:38] LABS: GLUCOSE,POINT OF CARE 123 MG/DL (70-110)
[2019-05-01 20:00] VITALS: BP 121/71
[2019-05-02] VITALS: BP 100/53
[2019-05-02] MEDS: IPRATROPIUM BROMIDE 0.5 MG/2.5 ML NEB SOLUTION NEB SCH ×4 (01:49→20:13)
[2019-05-02] MEDS: ALBUTEROL SULFATE 2.5 MG/0.5 ML NEB SOLUTION NEB SCH ×4 (01:49→20:13)
[2019-05-02 03:47] LABS: GLUCOSE,POINT OF CARE 126 MG/DL (70-110)
[2019-05-02 04:00] VITALS: BP 132/80
[2019-05-02 04:50] LABS: BASOPHILS % (AUTO) 0.1 % (0.0-2.0); EOSINOPHILS % (AUTO) 0.9 % (1.0-6.0); HEMATOCRIT 21.8 % (36-46); HEMOGLOBIN 7.1 g/dL (12.0-16.0); LYMPHOCYTES # (AUTO) 0.6 K/uL (1.0-4.8); LYMPHOCYTES % (AUTO) 6.8 % (22.0-44.0); MEAN CORPUSCULAR HGB CONC 32.5 G/dL (31.0-37.0); MEAN CORPUSCULAR VOLUME 86 fL (80-100); MONOCYTES # (AUTO) 0.8 K/uL (0.1-1.0); MONOCYTES % (AUTO) 9.1 % (2.0-9.0); NEUTROPHILS # (AUTO) 7.1 K/uL (1.8-7.7); NEUTROPHILS % (AUTO) 83.1 % (40.0-70.0); PLATELET COUNT (AUTO) 128 K/uL (150-450); RED BLOOD CELL COUNT(AUTO) 2.53 MIL/uL (4.00-5.20); RED CELL DISTRIBUTION WIDTH 17.5 % (11.5-14.5)
[2019-05-02 04:57] LABS: GLUCOSE,POINT OF CARE 125 MG/DL (70-110)
[2019-05-02 05:04] LABS: CREATININE 1.33 mg/dL (0.60-1.30); POTASSIUM 3.6 mmol/L (3.5-5.1)
[2019-05-02] MEDS: LEVOTHYROXINE SODIUM 75 MCG TABLET NG SCH (06:30)
[2019-05-02 06:47] LABS: INR 2.2 (0.9-1.1); PROTHROMBIN TIME 22.2 SEC (9.4-11.6)
[2019-05-02] MEDS: VANCOMYCIN HCL 1 GM/D5% WATER 200 ML IV SCH (07:14)
[2019-05-02] MEDS ORDERED: BUPIVACAINE 0.25%/EPI 1:200,000/PF 10 ML VIAL ONE (07:27)
[2019-05-02] MEDS ORDERED: SODIUM CHLORIDE 0.9% 0 ML ONE (07:30)
[2019-05-02 08:00] VITALS: BP 102/57
[2019-05-02] MEDS: METOPROLOL TARTRATE 25 MG TABLET NG SCH ×3 (09:00→21:00)
[2019-05-02] MEDS: DOCUSATE SODIUM 100 MG CAPSULE PO SCH ×2 (09:00→21:00)
[2019-05-02] MEDS: ASCORBIC ACID 500 MG TABLET NG SCH (09:00)
[2019-05-02] MEDS: CefoTEtan DISOD 2 GM/DEXTROSE 50 ML IV SCH (09:05)
[2019-05-02 09:17] LABS: INR 2.3 (0.9-1.1); PROTHROMBIN TIME 23.3 SEC (9.4-11.6)
[2019-05-02] MEDS: DEXTROSE 5%-0.45% SODIUM CHL 1,000 ML IV SCH (11:08)
[2019-05-02 12:00] VITALS: BP 101/56
[2019-05-02] MEDS ORDERED: PHYTONADIONE 10 MG/1 ML AMP PO ONE (12:30)
[2019-05-02 13:27] LABS: GLUCOSE,POINT OF CARE 126 MG/DL (70-110)
[2019-05-02 16:00] VITALS: BP 104/56
[2019-05-02] MEDS: CEFEPIME HCL 2 GM in DEXTROSE 5%-WATER 50 ML IV SCH (16:57)
[2019-05-02 17:32] LABS: GLUCOSE,POINT OF CARE 117 MG/DL (70-110)
[2019-05-02 20:00] VITALS: BP 113/75
[2019-05-03] VITALS (13 sets, daily range): BP systolic 91–114; BP diastolic 39–72
[2019-05-03] MEDS: INSULIN LISPRO 100 UNITS/ML SQ PRN
[2019-05-03] MEDS: DEXTROSE 5%-0.45% SODIUM CHL 1,000 ML IV SCH ×2 (00:55→20:23)
[2019-05-03] MEDS: IPRATROPIUM BROMIDE 0.5 MG/2.5 ML NEB SOLUTION NEB SCH ×4 (02:31→20:09)
[2019-05-03] MEDS: ALBUTEROL SULFATE 2.5 MG/0.5 ML NEB SOLUTION NEB SCH ×4 (02:32→20:09)
[2019-05-03] MEDS: CEFEPIME HCL 2 GM in DEXTROSE 5%-WATER 50 ML IV SCH ×2 (04:28→17:17)
[2019-05-03 05:06] LABS: INR 1.7 (0.9-1.1)
[2019-05-03 05:20] LABS: CALCIUM, TOTAL 7.9 mg/dL (8.8-10.5); CREATININE 1.2 mg/dL (0.60-1.30); MAGNESIUM 1.5 mg/dL (1.80-2.40); PHOSPHORUS 3.3 mg/dL (2.5-4.9); POTASSIUM 3.3 mmol/L (3.5-5.1); VANCOMYCIN,RANDOM 26.1 mcg/mL (25.0-50.0)
[2019-05-03] MEDS: VANCOMYCIN HCL 1 GM/D5% WATER 200 ML IV SCH (06:22)
[2019-05-03] MEDS: LEVOTHYROXINE SODIUM 75 MCG TABLET NG SCH (06:23)
[2019-05-03 07:16] LABS: GLUCOSE,POINT OF CARE 123 MG/DL (70-110)
[2019-05-03 07:16] LABS: GLUCOSE,POINT OF CARE 102 MG/DL (70-110)
[2019-05-03] MEDS ORDERED: POTASSIUM CHLORIDE 20 MEQ ER TABLET PO PRN ×2 (08:30)
[2019-05-03] MEDS ORDERED: PHYTONADIONE 10 MG/1 ML AMP SQ ONE (08:30)
[2019-05-03] MEDS ORDERED: POTASSIUM CHL 10 MEQ/WATER 50 ML IV PRN (08:30)
[2019-05-03] MEDS: DOCUSATE SODIUM 100 MG CAPSULE PO SCH ×2 (09:00→20:24)
[2019-05-03] MEDS: METOPROLOL TARTRATE 25 MG TABLET NG SCH ×3 (09:00→20:24)
[2019-05-03] MEDS: ASCORBIC ACID 500 MG TABLET NG SCH (09:15)
[2019-05-03] MEDS: POTASSIUM CHL 10 MEQ/WATER 50 ML IV PRN ×3 (11:08→16:30)
[2019-05-03] MEDS ORDERED: SODIUM CHLORIDE 0.9% 250 ML IV ONE (11:30)
[2019-05-03] MEDS ORDERED: MAGNESIUM SULFATE 2 GM/WATER 50 ML IV ONE (15:00)
[2019-05-03 17:40] LABS: GLUCOSE,POINT OF CARE 102 MG/DL (70-110)
[2019-05-03] MEDS: HYDROCODONE/ACETAMINOPHEN 5-325 MG TABLET PO PRN (20:24)
[2019-05-03 21:05] LABS: GLUCOSE,POINT OF CARE 95 MG/DL (70-110)
[2019-05-04] VITALS (11 sets, daily range): BP systolic 91–110; BP diastolic 36–72
[2019-05-04 01:48] LABS: GLUCOSE,POINT OF CARE 117 MG/DL (70-110)
[2019-05-04] MEDS: IPRATROPIUM BROMIDE 0.5 MG/2.5 ML NEB SOLUTION NEB SCH ×5 (01:57→23:07)
[2019-05-04] MEDS: ALBUTEROL SULFATE 2.5 MG/0.5 ML NEB SOLUTION NEB SCH ×5 (01:57→23:06)
[2019-05-04] MEDS: LEVOTHYROXINE SODIUM 75 MCG TABLET NG SCH (04:46)
[2019-05-04] MEDS: CEFEPIME HCL 2 GM in DEXTROSE 5%-WATER 50 ML IV SCH ×2 (04:46→16:46)
[2019-05-04 05:30] LABS: BASOPHILS % (AUTO) 0.1 % (0.0-2.0); EOSINOPHILS % (AUTO) 0.4 % (1.0-6.0); HEMATOCRIT 22.2 % (36-46); HEMOGLOBIN 7.2 g/dL (12.0-16.0); LYMPHOCYTES # (AUTO) 0.9 K/uL (1.0-4.8); LYMPHOCYTES % (AUTO) 7.8 % (22.0-44.0); MEAN CORPUSCULAR HEMOGLOBIN 28.4 pg (26.0-34.0); MEAN CORPUSCULAR HGB CONC 32.6 G/dL (31.0-37.0); MEAN CORPUSCULAR VOLUME 87 fL (80-100); MONOCYTES # (AUTO) 0.7 K/uL (0.1-1.0); MONOCYTES % (AUTO) 6.4 % (2.0-9.0); NEUTROPHILS # (AUTO) 9.6 K/uL (1.8-7.7); PLATELET COUNT (AUTO) 147 K/uL (150-450); RED BLOOD CELL COUNT(AUTO) 2.55 MIL/uL (4.00-5.20); RED CELL DISTRIBUTION WIDTH 16.4 % (11.5-14.5)
[2019-05-04 05:32] LABS: NEUTROPHILS % (AUTO) 85.3 % (40.0-70.0)
[2019-05-04 05:40] LABS: INR 1.2 (0.9-1.1)
[2019-05-04 05:43] LABS: CALCIUM, TOTAL 8.1 mg/dL (8.8-10.5); CREATININE 1.18 mg/dL (0.60-1.30); MAGNESIUM 2.2 mg/dL (1.80-2.40); PHOSPHORUS 3.4 mg/dL (2.5-4.9); POTASSIUM 3.8 mmol/L (3.5-5.1)
[2019-05-04 05:48] LABS: PLATELET MORPHOLOGY COMMENT LARGE PLTS PRESENT
[2019-05-04 06:38] LABS: GLUCOSE,POINT OF CARE 110 MG/DL (70-110)
[2019-05-04] MEDS: VANCOMYCIN HCL 750 MG in DEXTROSE 5%-WATER 250 ML IV SCH (07:30)
[2019-05-04] MEDS: METOPROLOL TARTRATE 25 MG TABLET NG SCH ×3 (08:35→20:57)
[2019-05-04] MEDS: ASCORBIC ACID 500 MG TABLET NG SCH (08:35)
[2019-05-04] MEDS: DOCUSATE SODIUM 100 MG CAPSULE PO SCH ×2 (08:36→20:58)
[2019-05-04] MEDS ORDERED: BUPIVACAINE 0.25%/EPI 1:200,000/PF 10 ML VIAL ONE (09:01)
[2019-05-04] MEDS ORDERED: RINGERS SOLUTION,LACTATED 1,000 ML IV ONE (09:08)
[2019-05-04] MEDS: DEXTROSE 5%-0.45% SODIUM CHL 1,000 ML IV SCH ×2 (10:03→23:51)
[2019-05-04] MEDS ORDERED: SODIUM CHLORIDE 0.9% 1,000 ML ONE ×2 (11:31→11:59)
[2019-05-04 14:23] LABS: HEMATOCRIT 34.1 % (36-46); MEAN CORPUSCULAR HEMOGLOBIN 28.1 pg (26.0-34.0); MEAN CORPUSCULAR HGB CONC 32.2 G/dL (31.0-37.0); MEAN CORPUSCULAR VOLUME 88 fL (80-100); PLATELET COUNT (AUTO) 103 K/uL (150-450); RED CELL DISTRIBUTION WIDTH 15.4 % (11.5-14.5)
[2019-05-04 14:26] LABS: CALCIUM, TOTAL 7.8 mg/dL (8.8-10.5); CREATININE 1.11 mg/dL (0.60-1.30); POTASSIUM 3.9 mmol/L (3.5-5.1)
[2019-05-04 14:32] LABS: INR 1.2 (0.9-1.1)
[2019-05-04 15:01] LABS: BAND NEUTROPHILS % (MANUAL) 10 % (0-5); LYMPHOCYTES % (MANUAL) 4 % (22-44); MONOCYTES % (MANUAL) 4 % (2-9); SEGMENTED NEUTROPHILS % 82 % (40-70)
[2019-05-04] MEDS ORDERED: SODIUM CHLORIDE 0.9% 250 ML IV ONE (16:50)
[2019-05-04 17:49] LABS: GLUCOSE,POINT OF CARE 172 MG/DL (70-110)
[2019-05-04 21:44] LABS: GLUCOSE,POINT OF CARE 158 MG/DL (70-110)
[2019-05-05] VITALS (8 sets, daily range): BP systolic 84–187; BP diastolic 43–78
[2019-05-05] MEDS: INSULIN LISPRO 100 UNITS/ML SQ PRN ×2 (00:30→23:02)
[2019-05-05] MEDS: IPRATROPIUM BROMIDE 0.5 MG/2.5 ML NEB SOLUTION NEB SCH ×6 (03:49→22:35)
[2019-05-05] MEDS: ALBUTEROL SULFATE 2.5 MG/0.5 ML NEB SOLUTION NEB SCH ×6 (03:49→22:35)
[2019-05-05] MEDS: CEFEPIME HCL 2 GM in DEXTROSE 5%-WATER 50 ML IV SCH ×2 (04:21→17:15)
[2019-05-05 05:54] LABS: CALCIUM, TOTAL 7.4 mg/dL (8.8-10.5); CREATININE 1.15 mg/dL (0.60-1.30); MAGNESIUM 1.8 mg/dL (1.80-2.40); PHOSPHORUS 2.9 mg/dL (2.5-4.9); POTASSIUM 4.1 mmol/L (3.5-5.1)
[2019-05-05] MEDS ORDERED: PHENYLEPHRINE HCL 10 MG/ML VIAL IVP ONE (05:59)
[2019-05-05] MEDS ORDERED: FentaNYL CITRATE-PF 100 MCG/2 ML VIAL IVP ONE (05:59)
[2019-05-05] MEDS ORDERED: MIDAZOLAM HCL 2 MG/2 ML VIAL IVP ONE (05:59)
[2019-05-05] MEDS ORDERED: 0.9% SODIUM CHLORIDE 10 ML VIAL IVP ONE (05:59)
[2019-05-05] MEDS ORDERED: ROCURONIUM BROMIDE 10 MG/ML 5 ML VIAL IVP ONE (05:59)
[2019-05-05] MEDS: VANCOMYCIN HCL 750 MG in DEXTROSE 5%-WATER 250 ML IV SCH (06:01)
[2019-05-05] MEDS: HYDROCODONE/ACETAMINOPHEN 5-325 MG TABLET PO PRN (06:01)
[2019-05-05] MEDS: LEVOTHYROXINE SODIUM 75 MCG TABLET NG SCH (06:01)
[2019-05-05 07:05] LABS: GLUCOSE,POINT OF CARE 141 MG/DL (70-110)
[2019-05-05] MEDS: DEXTROSE 5%-0.45% SODIUM CHL 1,000 ML IV SCH ×2 (07:12→18:21)
[2019-05-05 07:56] LABS: BASOPHILS % (AUTO) 0.1 % (0.0-2.0); EOSINOPHILS % (AUTO) 0.7 % (1.0-6.0); INR 1.2 (0.9-1.1); LYMPHOCYTES # (AUTO) 0.6 K/uL (1.0-4.8); LYMPHOCYTES % (AUTO) 3.8 % (22.0-44.0); MEAN CORPUSCULAR HEMOGLOBIN 30.1 pg (26.0-34.0); MEAN CORPUSCULAR HGB CONC 35.3 G/dL (31.0-37.0); MEAN CORPUSCULAR VOLUME 85 fL (80-100); MONOCYTES # (AUTO) 0.8 K/uL (0.1-1.0); MONOCYTES % (AUTO) 4.7 % (2.0-9.0); NEUTROPHILS # (AUTO) 14.8 K/uL (1.8-7.7); PLATELET COUNT (AUTO) 101 K/uL (150-450); PROTHROMBIN TIME 12.5 SEC (9.4-11.6); RED BLOOD CELL COUNT(AUTO) 1.98 MIL/uL (4.00-5.20); RED CELL DISTRIBUTION WIDTH 15.5 % (11.5-14.5)
[2019-05-05 08:07] LABS: HEMATOCRIT 16.9 % (36-46); NEUTROPHILS % (AUTO) 90.7 % (40.0-70.0)
[2019-05-05] MEDS ORDERED: SODIUM CHLORIDE 0.9% 2,000 ML ONE (08:40)
[2019-05-05] MEDS ORDERED: SODIUM CHLORIDE 0.9% 1,000 ML ONE ×2 (08:55→12:59)
[2019-05-05] MEDS ORDERED: SODIUM CHLORIDE 0.9% 500 ML IV ONE (08:57)
[2019-05-05] MEDS: ASCORBIC ACID 500 MG TABLET NG SCH (09:00)
[2019-05-05] MEDS: METOPROLOL TARTRATE 25 MG TABLET NG SCH ×3 (09:00→21:00)
[2019-05-05] MEDS: DOCUSATE SODIUM 100 MG CAPSULE PO SCH ×2 (09:00→21:00)
[2019-05-05] MEDS: FAMOTIDINE 10 MG/ML 2 ML VIAL IVP SCH (09:00)
[2019-05-05 09:07] LABS: PLATELET MORPHOLOGY COMMENT LARGE PLTS PRESENT
[2019-05-05 09:16] LABS: ABG A-A DIFF O2 338.4 mmHg (10-20.0); ABG BASE EXCESS -10.9 mmol/L (-2.0-3.0); ABG CARBOXYHEMOGLOBIN 1.4 % (0.0-1.5); ABG HCO3 16.3 mmol/L (22.0-26.0); ABG METHEMOGLOBIN 0.3 % (0.0-1.5); ABG OXYGEN CONTENT 8.4 mL/dL (15.0-23.0); ABG OXYGEN SATURATION 99.5 % (95.0-98.0); ABG OXYHEMOGLOBIN 97.8 % (94.0-100.0); ABG PCO2 38 mmHg (35-45); ABG PH 7.248 (7.35-7.450); PO2, ARTERIAL BG 338.2 mmHg (75.0-83.0); SOURCE, BLOOD GAS ARTERIAL; TEMPERATURE, FAHRENHEIT, BG 97.2 FAHREN (96.0-98.6)
[2019-05-05 09:17] LABS: ABG TOTAL HEMOGLOBIN 5.4 G/dL (12.0-18.0); PEEP,BG 5 cm H2O; SITE, BLOOD GAS ARTERIAL LINE; VT, ABG 400 ml
[2019-05-05 09:18] LABS: O2 DEVICE,BLOOD GAS VENTILATOR (ROOM AIR)
[2019-05-05] MEDS ORDERED: RINGERS SOLUTION,LACTATED 1,000 ML IV ONE (09:23)
[2019-05-05 10:16] LABS: GLUCOSE,POINT OF CARE 148 MG/DL (70-110)
[2019-05-05 10:52] LABS: BASOPHILS % (AUTO) 0.1 % (0.0-2.0); EOSINOPHILS % (AUTO) 0.5 % (1.0-6.0); HEMATOCRIT 24.2 % (36-46); HEMOGLOBIN 7.9 g/dL (12.0-16.0); LYMPHOCYTES # (AUTO) 0.6 K/uL (1.0-4.8); MEAN CORPUSCULAR HEMOGLOBIN 29.7 pg (26.0-34.0); MEAN CORPUSCULAR HGB CONC 32.5 G/dL (31.0-37.0); MEAN CORPUSCULAR VOLUME 91 fL (80-100); MONOCYTES # (AUTO) 0.7 K/uL (0.1-1.0); MONOCYTES % (AUTO) 4.8 % (2.0-9.0); NEUTROPHILS # (AUTO) 12.6 K/uL (1.8-7.7); RED BLOOD CELL COUNT(AUTO) 2.65 MIL/uL (4.00-5.20)
[2019-05-05 10:53] LABS: NEUTROPHILS % (AUTO) 90.6 % (40.0-70.0)
[2019-05-05 11:00] LABS: ABG A-A DIFF O2 476.2 mmHg (10-20.0); ABG BASE EXCESS -12.9 mmol/L (-2.0-3.0); ABG CARBOXYHEMOGLOBIN 0.4 % (0.0-1.5); ABG HCO3 14.9 mmol/L (22.0-26.0); ABG METHEMOGLOBIN 0.3 % (0.0-1.5); ABG OXYGEN CONTENT 12.6 mL/dL (15.0-23.0); ABG OXYHEMOGLOBIN 98.3 % (94.0-100.0); ABG PCO2 34 mmHg (35-45); ABG PH 7.242 (7.35-7.450); ABG TOTAL HEMOGLOBIN 8.7 G/dL (12.0-18.0); PO2, ARTERIAL BG 205.4 mmHg (75.0-83.0); SOURCE, BLOOD GAS ARTERIAL; TEMPERATURE, FAHRENHEIT, BG 96.4 FAHREN (96.0-98.6)
[2019-05-05 11:00] LABS: ANION GAP 10 mmol/L (8-16); CALCIUM, TOTAL 6.6 mg/dL (8.8-10.5); CARBON DIOXIDE 20 mmol/L (22-29); CHLORIDE 111 mmol/L (98-107); CREATININE 1.12 mg/dL (0.60-1.30); GLOMERULAR FILTR. RATE CALC 47 mL/min (>60); GLUCOSE,RANDOM 164 mg/dL (70-110); SODIUM SERUM 141 mmol/L (136-145); UREA NITROGEN, BLOOD 38 mg/dL (7-18)
[2019-05-05 11:01] LABS: SITE, BLOOD GAS A LINR
[2019-05-05 11:02] LABS: O2 DEVICE,BLOOD GAS VENTILATOR (ROOM AIR); PEEP,BG 0 cm H2O; VT, ABG 350 ml
[2019-05-05 11:08] LABS: ALBUMIN 1.2 g/dL (3.4-5.0); ALKALINE PHOSPHATASE 40 U/L (46-116); ASPARTATE AMINOTRANSFERASE 14 U/L (15-37); BILIRUBIN,TOTAL 0.3 mg/dL (0.1-1.0); TOTAL PROTEIN, SERUM 3.6 g/dL (6.4-8.2)
[2019-05-05 11:09] LABS: PLATELET COUNT (AUTO) 65 K/uL (150-450)
[2019-05-05 11:11] LABS: PLATELET MORPHOLOGY COMMENT LARGE PLTS PRESENT
[2019-05-05 11:19] LABS: ALANINE AMINOTRANSFERASE 7 U/L (12-78)
[2019-05-05 11:41] LABS: LACTIC ACID 2.2 mmol/L (0.4-2.0)
[2019-05-05] MEDS ORDERED: SODIUM BICARBONATE [ADULT] 8.4% 50 MEQ/50 ML SYRINGE IVP ONE ×2 (11:46→14:00)
[2019-05-05] MEDS ORDERED: CALCIUM CHLORIDE 100 MG/ML 10 ML SYRINGE IVP ONE (11:46)
[2019-05-05] MEDS ORDERED: NOREPINEPHRINE 4 MG/D5%-WATER 250 ML IV PRN (11:59)
[2019-05-05] MEDS ORDERED: PHENYLEPHRINE 200 MG/D5%-WATER 250 ML IV PRN (12:00)
[2019-05-05 12:08] LABS: INR 1.2 (0.9-1.1); PROTHROMBIN TIME 12.6 SEC (9.4-11.6)
[2019-05-05] MEDS ORDERED: PANTOPRAZOLE SODIUM 40 MG/VIAL IVP SCH (12:45)
[2019-05-05 12:55] LABS: HEMATOCRIT 28.4 % (36-46); HEMOGLOBIN 9.5 g/dL (12.0-16.0)
[2019-05-05] MEDS ORDERED: METOCLOPRAMIDE HCL 5 MG/ML 2 ML VIAL IVP ONE (13:15)
[2019-05-05] MEDS: VASOPRESSIN 40 UNITS in DEXTROSE 5%-WATER 98 ML IV PRN ×2 (13:33→22:10)
[2019-05-05 13:50] LABS: ABG METHEMOGLOBIN 0.3 % (0.0-1.5); ABG OXYGEN SATURATION 98.6 % (95.0-98.0); SOURCE, BLOOD GAS ARTERIAL; TEMPERATURE, FAHRENHEIT, BG 98.6 FAHREN (96.0-98.6)
[2019-05-05 13:53] LABS: ABG A-A DIFF O2 66.4 mmHg (10-20.0); ABG BASE EXCESS -12.4 mmol/L (-2.0-3.0); ABG CARBOXYHEMOGLOBIN 1.2 % (0.0-1.5); ABG HCO3 15.6 mmol/L (22.0-26.0); ABG OXYGEN CONTENT 19.5 mL/dL (15.0-23.0); ABG OXYHEMOGLOBIN 97.1 % (94.0-100.0); ABG PCO2 36 mmHg (35-45); ABG PH 7.235 (7.35-7.450); ABG TOTAL HEMOGLOBIN 14.1 G/dL (12.0-18.0); O2 DEVICE,BLOOD GAS VENTILATOR (ROOM AIR); PEEP,BG 5 cm H2O; SITE, BLOOD GAS ARTERIAL LINE; VT, ABG 400 ml
[2019-05-05 17:46] LABS: ABG A-A DIFF O2 66.4 mmHg (10-20.0); ABG BASE EXCESS -8.4 mmol/L (-2.0-3.0); ABG CARBOXYHEMOGLOBIN 1.2 % (0.0-1.5); ABG HCO3 18.6 mmol/L (22.0-26.0); ABG METHEMOGLOBIN 0.3 % (0.0-1.5); ABG OXYGEN CONTENT 17.5 mL/dL (15.0-23.0); ABG OXYGEN SATURATION 98.9 % (95.0-98.0); ABG OXYHEMOGLOBIN 97.4 % (94.0-100.0); ABG PCO2 31 mmHg (35-45); ABG PH 7.356 (7.35-7.450); ABG TOTAL HEMOGLOBIN 12.6 G/dL (12.0-18.0); PO2, ARTERIAL BG 146.8 mmHg (75.0-83.0); SOURCE, BLOOD GAS ARTERIAL; TEMPERATURE, FAHRENHEIT, BG 98.6 FAHREN (96.0-98.6)
[2019-05-05 17:47] LABS: O2 DEVICE,BLOOD GAS VENTILATOR (ROOM AIR); PEEP,BG 5 cm H2O; SITE, BLOOD GAS A LINE; SPONTANEOUS VT, BG 383 ml; VT, ABG 400 ml
[2019-05-05 18:39] LABS: HEMATOCRIT 35.6 % (36-46); HEMOGLOBIN 12.2 g/dL (12.0-16.0); MEAN CORPUSCULAR HEMOGLOBIN 30.1 pg (26.0-34.0); MEAN CORPUSCULAR HGB CONC 34.3 G/dL (31.0-37.0); MEAN CORPUSCULAR VOLUME 88 fL (80-100); RED BLOOD CELL COUNT(AUTO) 4.06 MIL/uL (4.00-5.20); RED CELL DISTRIBUTION WIDTH 14.7 % (11.5-14.5)
[2019-05-05 18:43] LABS: GLUCOSE,POINT OF CARE 141 MG/DL (70-110)
[2019-05-05 18:46] LABS: INR 1.2 (0.9-1.1); PROTHROMBIN TIME 12.6 SEC (9.4-11.6)
[2019-05-05 19:05] LABS: PLATELET COUNT (AUTO) 98 K/uL (150-450)
[2019-05-05 19:07] LABS: BAND NEUTROPHILS % (MANUAL) 14 % (0-5); LYMPHOCYTES % (MANUAL) 3 % (22-44); MONOCYTES % (MANUAL) 2 % (2-9); SEGMENTED NEUTROPHILS % 81 % (40-70)
[2019-05-05] MEDS: PROPOFOL 1000 MG/ISO-OSM 100 ML IV PRN (19:24)
[2019-05-05] MEDS: PANTOPRAZOLE SODIUM 80 MG in SODIUM CHLORIDE 0.9% 100 ML IV SCH (20:50)
[2019-05-05] MEDS: SODIUM CHLORIDE 0.9% 1,000 ML IV SCH (20:50)
[2019-05-05] MEDS ORDERED: ALBUTEROL SULFATE 2.5 MG/0.5 ML NEB SOLUTION NEB PRN (22:15)
[2019-05-05] MEDS ORDERED: IPRATROPIUM BROMIDE 0.5 MG/2.5 ML NEB SOLUTION NEB PRN (22:15)
[2019-05-05 23:04] LABS: EOSINOPHILS % (AUTO) 0 % (1.0-6.0); HEMATOCRIT 31.3 % (36-46); HEMOGLOBIN 10.8 g/dL (12.0-16.0); LYMPHOCYTES # (AUTO) 0.7 K/uL (1.0-4.8); LYMPHOCYTES % (AUTO) 2.7 % (22.0-44.0); MEAN CORPUSCULAR HGB CONC 34.6 G/dL (31.0-37.0); MEAN CORPUSCULAR VOLUME 87 fL (80-100); MONOCYTES # (AUTO) 0.7 K/uL (0.1-1.0); MONOCYTES % (AUTO) 2.6 % (2.0-9.0); NEUTROPHILS # (AUTO) 24.8 K/uL (1.8-7.7); PLATELET COUNT (AUTO) 73 K/uL (150-450); RED BLOOD CELL COUNT(AUTO) 3.61 MIL/uL (4.00-5.20); RED CELL DISTRIBUTION WIDTH 14.4 % (11.5-14.5)
[2019-05-05 23:24] LABS: NEUTROPHILS % (AUTO) 94.7 % (40.0-70.0)
[2019-05-06] VITALS: BP 131/56
[2019-05-06] MEDS: PROPOFOL 1000 MG/ISO-OSM 100 ML IV PRN (02:54)
[2019-05-06] MEDS: DEXTROSE 5%-0.45% SODIUM CHL 1,000 ML IV SCH (03:12)
[2019-05-06 03:33] LABS: HEMATOCRIT 30.4 % (36-46); HEMOGLOBIN 10.4 g/dL (12.0-16.0); MEAN CORPUSCULAR HEMOGLOBIN 30.1 pg (26.0-34.0); MEAN CORPUSCULAR HGB CONC 34.3 G/dL (31.0-37.0); MEAN CORPUSCULAR VOLUME 88 fL (80-100); PLATELET COUNT (AUTO) 68 K/uL (150-450); RED BLOOD CELL COUNT(AUTO) 3.47 MIL/uL (4.00-5.20); RED CELL DISTRIBUTION WIDTH 14.4 % (11.5-14.5)
[2019-05-06 03:55] LABS: PLATELET MORPHOLOGY COMMENT GIANT PLTS PRESENT
[2019-05-06 03:57] LABS: BAND NEUTROPHILS % (MANUAL) 19 % (0-5); LYMPHOCYTES % (MANUAL) 4 % (22-44); MONOCYTES % (MANUAL) 5 % (2-9); SEGMENTED NEUTROPHILS % 72 % (40-70)
[2019-05-06 04:00] VITALS: BP 114/47
[2019-05-06] MEDS: CEFEPIME HCL 2 GM in DEXTROSE 5%-WATER 50 ML IV SCH (04:14)
[2019-05-06] MEDS: ALBUTEROL SULFATE 2.5 MG/0.5 ML NEB SOLUTION NEB SCH ×3 (04:19→11:03)
[2019-05-06] MEDS: IPRATROPIUM BROMIDE 0.5 MG/2.5 ML NEB SOLUTION NEB SCH ×3 (04:19→11:03)
[2019-05-06] MEDS: PANTOPRAZOLE SODIUM 80 MG in SODIUM CHLORIDE 0.9% 100 ML IV SCH (04:50)
[2019-05-06] MEDS: INSULIN LISPRO 100 UNITS/ML SQ PRN (05:21)
[2019-05-06] MEDS: SODIUM CHLORIDE 0.9% 1,000 ML IV SCH (05:23)
[2019-05-06] MEDS ORDERED: ROCURONIUM BROMIDE 10 MG/ML 5 ML VIAL IVP ONE (05:29)
[2019-05-06 05:46] LABS: INR 1.2 (0.9-1.1); PROTHROMBIN TIME 12.5 SEC (9.4-11.6)
[2019-05-06 05:59] LABS: CREATININE 1.08 mg/dL (0.60-1.30); POTASSIUM 3.8 mmol/L (3.5-5.1); VANCOMYCIN,RANDOM 25.8 mcg/mL (25.0-50.0)
[2019-05-06] MEDS: LEVOTHYROXINE SODIUM 75 MCG TABLET NG SCH (06:30)
[2019-05-06] MEDS: VANCOMYCIN HCL 750 MG in DEXTROSE 5%-WATER 250 ML IV SCH (06:41)
[2019-05-06 06:59] LABS: GLUCOSE,POINT OF CARE 169 MG/DL (70-110)
[2019-05-06 06:59] LABS: GLUCOSE,POINT OF CARE 171 MG/DL (70-110)
[2019-05-06] MEDS ORDERED: PROPOFOL 1000 MG/ISO-OSM 100 ML IV PRN (07:00)
[2019-05-06 08:00] VITALS: BP 109/41
[2019-05-06 08:07] LABS: HEMATOCRIT 26.5 % (36-46); HEMOGLOBIN 9.2 g/dL (12.0-16.0); MEAN CORPUSCULAR HEMOGLOBIN 30.4 pg (26.0-34.0); MEAN CORPUSCULAR HGB CONC 34.7 G/dL (31.0-37.0); MEAN CORPUSCULAR VOLUME 88 fL (80-100); PLATELET COUNT (AUTO) 57 K/uL (150-450); RED BLOOD CELL COUNT(AUTO) 3.03 MIL/uL (4.00-5.20)
[2019-05-06] MEDS: FAMOTIDINE 10 MG/ML 2 ML VIAL IVP SCH (08:41)
[2019-05-06] MEDS: ASCORBIC ACID 500 MG TABLET NG SCH (08:42)
[2019-05-06] MEDS: DOCUSATE SODIUM 100 MG CAPSULE PO SCH (08:42)
[2019-05-06] MEDS: METOPROLOL TARTRATE 25 MG TABLET NG SCH (08:42)
[2019-05-06 09:23] LABS: BAND NEUTROPHILS % (MANUAL) 11 % (0-5); LYMPHOCYTES % (MANUAL) 3 % (22-44); MONOCYTES % (MANUAL) 1 % (2-9); SEGMENTED NEUTROPHILS % 85 % (40-70)
[2019-05-06] MEDS ORDERED: SODIUM CHLORIDE 0.45% 1,000 ML IV SCH (10:15)
[2019-05-06] MEDS ORDERED: SODIUM CHLORIDE 0.9% 250 ML IV ONE (10:29)
[2019-05-06 12:00] VITALS: BP 99/40
[2019-05-06 13:15] VITALS: BP 105/42
[2019-05-06] MEDS ORDERED: MIDAZOLAM HCL 2 MG/2 ML VIAL IVP ONE (13:44)
[2019-05-06] MEDS ORDERED: FentaNYL CITRATE-PF 100 MCG/2 ML VIAL IVP ONE (13:44)
[2019-05-07] MEDS ORDERED: VANCOMYCIN HCL 500 MG in DEXTROSE 5%-WATER 100 ML IV SCH (07:00)
[2019-05-07 07:02] LABS: GLUCOSE,POINT OF CARE 147 MG/DL (70-110)
== END 2019-05-06 13:45 | disposition short-term general hospital (02) | DRG 853 ==
LOC: EMS 03:35 → ICU 20:00
PROVIDERS: ADMIT Hospitalist; ATTEND Hospitalist
PROC: 0W9900Z Drainage of Right Pleural Cavity with Drainage Device, Open Approach (ICD-10-PCS; 2019-04-25)
PROC: 5A1955Z Respiratory Ventilation, Greater than 96 Consecutive Hours (ICD-10-PCS; 2019-04-27)
PROC: 0DH64UZ Insertion of Feeding Device into Stomach, Percutaneous Endoscopic Approach (ICD-10-PCS; 2019-04-28)
PROC: 30233N1 Transfusion of Nonautologous Red Blood Cells into Peripheral Vein, Percutaneous Approach (ICD-10-PCS; 2019-05-03)
PROC: 3E0G76Z Introduction of Nutritional Substance into Upper GI, Via Natural or Artificial Opening (ICD-10-PCS; 2019-05-04)
PROC: 0DJ08ZZ Inspection of Upper Intestinal Tract, Via Natural or Artificial Opening Endoscopic (ICD-10-PCS; 2019-05-04)
PROC: 0DC60ZZ Extirpation of Matter from Stomach, Open Approach (ICD-10-PCS; 2019-05-05)
PROC: 30233L1 Transfusion of Nonautologous Fresh Plasma into Peripheral Vein, Percutaneous Approach (ICD-10-PCS; 2019-05-05)
PROC: 30233R1 Transfusion of Nonautologous Platelets into Peripheral Vein, Percutaneous Approach (ICD-10-PCS; 2019-05-05)
PROC: 0DNW0ZZ Release Peritoneum, Open Approach (ICD-10-PCS; principal; 2019-05-05 09:00)
DX: A41.9 Sepsis, unspecified organism (principal); J69.0 Pneumonitis due to inhalation of food and vomit; E43 Unspecified severe protein-calorie malnutrition; N17.0 Acute kidney failure with tubular necrosis; L89.153 Pressure ulcer of sacral region, stage 3; R57.8 Other shock; J96.90 Respiratory failure, unspecified, unspecified whether with hypoxia or hypercapnia; N39.0 Urinary tract infection, site not specified; J93.9 Pneumothorax, unspecified; D62 Acute posthemorrhagic anemia; I48.20 Chronic atrial fibrillation, unspecified; L97.909 Non-pressure chronic ulcer of unspecified part of unspecified lower leg with unspecified severity; K92.2 Gastrointestinal hemorrhage, unspecified; Z99.11 Dependence on respirator [ventilator] status; I50.32 Chronic diastolic (congestive) heart failure; I13.0 Hypertensive heart and chronic kidney disease with heart failure and stage 1 through stage 4 chronic kidney disease, or unspecified chronic kidney disease; J96.10 Chronic respiratory failure, unspecified whether with hypoxia or hypercapnia; D68.9 Coagulation defect, unspecified; J44.9 Chronic obstructive pulmonary disease, unspecified; F03.90 Unspecified dementia, unspecified severity, without behavioral disturbance, psychotic disturbance, mood disturbance, and anxiety; E87.6 Hypokalemia; F41.9 Anxiety disorder, unspecified; F31.9 Bipolar disorder, unspecified; K21.9 Gastro-esophageal reflux disease without esophagitis; E03.9 Hypothyroidism, unspecified; E11.22 Type 2 diabetes mellitus with diabetic chronic kidney disease; E78.5 Hyperlipidemia, unspecified; G70.00 Myasthenia gravis without (acute) exacerbation; R13.10 Dysphagia, unspecified; K59.00 Constipation, unspecified; N18.9 Chronic kidney disease, unspecified; B96.20 Unspecified Escherichia coli [E. coli] as the cause of diseases classified elsewhere; Z90.710 Acquired absence of both cervix and uterus; Z86.718 Personal history of other venous thrombosis and embolism; Z79.899 Other long term (current) drug therapy; Z93.0 Tracheostomy status; Z74.01 Bed confinement status; Z86.14 Personal history of Methicillin resistant Staphylococcus aureus infection; Z98.84 Bariatric surgery status; Z68.32 Body mass index [BMI] 32.0-32.9, adult
CPT/HCPCS: 36245; 36569; 36600; 51702; 74018; 74176; 76937; 82805; 83605; 83735; 84100; 84132; 84145; 85014; 85018; 85384; 86850; 86900; 86901; 86920; 86927; 87040; 87070; 87081; 87086; 87804; 93005; 93306; 93970; 94002; 94003; 94640; 99291; C9113; G0378; J0131; J0171; J0282; J0461; J0690; J0692; J1160; J1644; J2250; J2270; J2370; J2543; J2704; J2765; J3010; J3370; J3430; J3475; J3480; J3490; J7030; J7040; J7050; J7060; J7120; P9016; P9017; P9035